=== PATIENT | male | born 1960 | race Caucasian/White ===

== ENCOUNTER → 2018-05-26 13:47 | Outpatient (CLI) | payer OTHER, SELFPAY ==
--- NOTE | 2018-05-26 13:50 | VDLE_ITS ---
Reason For Study: varicose veins, venous insuff., pain and swelling RIGHT LEFT CFV is compressible, spontaneous, phasic, CFV is compressible, spontaneous, phasic, competent and demonstrates normal competent, and demonstrates normal augmentation. augmentation. FV is compressible, spontaneous, phasic, FV is compressible, spontaneous, phasic, competent and demonstrates normal competent and demonstrates normal augmentation. augmentation. POP V is compressible, spontaneous, phasic, POP V is compressible, spontaneous, phasic, competent and demonstrates normal competent and demonstrates normal augmentation. augmentation. T/P Trunk is compressible. T/P Trunk is compressible. PTV is compressible. PTV is compressible. RT PerV is compressible. LT PerV is compressible. S-F Junction is incompetent for greater S-F Junction is competent. than .5 seconds. GSV is incompetent throughout for greater GSV is incompetent throughout for greater than .5 seconds. GSV measures .478 x .487 cm. than .5 seconds. GSV measures .620 x .690 cm. SSV is competent. SSV is incompetent for greater than .5 seconds. SSV measures .371 x .389 cm. Procedure Exam performed in department. Patient was scanned in reverse Trendelenburg position during reflux assessment. The exam was diagnostic. Interpretation Summary 1. bilateral no DVT or SVT. 2. right GSv 6.9mm with severe reflux. 3. Right LSv 3.9mm wiht severe reflux 4. Left GSV 4.9mm with severe reflux. Ordering Physician: Dheeraj Sims Performed By: Te Adam RVT
== END ==
PROVIDERS: Family Provider Family Medicine; PCP Family Medicine; Referring Provider Surgery Vascular Surgery; Visit Provider Surgery Vascular Surgery
DX: I83.891 Varicose veins of right lower extremity with other complications (principal); I87.2 Venous insufficiency (chronic) (peripheral)
CPT/HCPCS: 93970

== ENCOUNTER → 2019-11-19 13:16 | Outpatient (CLI) | payer OTHER, SELFPAY ==
[2019-11-19 12:59] VITALS: BMI 33.7
--- NOTE | 2019-11-19 13:12 | RAD_ITS ---
STUDY: X-RAY - PELVIS AND RIGHT HIP REASON FOR EXAM: Lateral and posterior pain. TECHNIQUE: 2 views of the pelvis and hip. COMPARISON: None. FINDINGS: There are surgical clips in the scrotum. Normal bilateral iliac wings, sacroiliac joints and visualized sacrum. Normal bilateral superior and inferior pubic rami. Normal pubic symphysis. Normal bilateral ischial tuberosities. There is a small right femoral cam lesion. Normal acetabulum. Normal hip joint. RAD/HIP, UNI W/ Pelvis 2-3 Views IMPRESSION: Small right femoral cam lesion. Otherwise, unremarkable x-ray examination of the pelvis and right hip. Electronically Signed: Quinn Landis MD at 15:16 EDT Tel , Service support ,
--- NOTE | 2019-11-19 13:12 | RAD_ITS ---
STUDY: X-RAY - LUMBOSACRAL SPINE REASON FOR EXAM: Male, 59 years old. PAIN RADIATES INTO RIGHT HIP TECHNIQUE: 6 view(s) of the lumbosacral spine were obtained during flexion and extension in the lateral projection. COMPARISON: None FINDINGS: Normal lumbar lordosis. There is no substantial scoliosis. There is normal alignment of the vertebrae. No evidence for acute fracture or subluxation.. There is mild narrowing of the L3-4 and L4-5 disc space heights and mild multilevel endplate spurring. Films obtained in flexion-extension demonstrate no evidence for gross instability. There appears to be spinal stenosis at L4-5 and L5-S1 part due to thickening of the facets and developmental foreshortening of the pedicles which may be further assessed with CT or MRI. Normal bilateral sacral ala, sacroiliac joints, and visualized sacrum. Mild diffuse calcification of the aorta without evidence for aneurysm RAD/L/S Spine Comp/w Bending Views IMPRESSION: Degenerative changes. No evidence for acute fracture or subluxation Probable spinal stenosis in part due to facet arthropathy and shortening of the pedicles. CT or MRI would be useful for further evaluation if indicated Electronically Signed: Gaurav Zhong MD at 20:14 EDT , Service support ,
== END ==
PROVIDERS: PCP Family Medicine; Referring Provider Orthopaedic Surgery; Visit Provider Orthopaedic Surgery
DX: M25.551 Pain in right hip (principal); M54.5 Low back pain
CPT/HCPCS: 72114; 73502

== ENCOUNTER → 2019-12-07 12:33 | Outpatient (CLI) | payer OTHER, SELFPAY ==
[2019-11-19 12:59] VITALS: BMI 33.7
--- NOTE | 2019-12-07 12:35 | MRI_ITS ---
STUDY: MRI RIGHT HIP REASON FOR EXAM: Right hip/right buttock pain, lifting injury. TECHNIQUE: Standardized fat and water weighted pulse sequences were obtained in all 3 orthogonal planes. COMPARISON: Radiographs 11/19/2019. FINDINGS: Normal hip joint without articular joint space narrowing. Normal acetabulum. There is a tear of the right anterosuperior labrum (proton-density sagittal images 16, 17) and a paralabral cyst adjacent to the superior labrum (inversion recovery coronal images 16-18). Normal femoral head. Normal femoral neck and intratrochanteric region. Normal gluteus minimus, medius and iliopsoas tendons and distal insertions. There is no trochanteric, iliopsoas or iliopectineal bursitis. Normal superior and inferior pubic rami. Normal pubic symphysis. Normal ischial tuberosity. Normal origin of the hamstring tendons. Normal visualized iliac wing, sacroiliac joint, and sacral ala. There is edema in the right lower lumbar paraspinous musculature (inversion recovery coronal images 3-5). MRI/Lower Ext Joint Only (Routine) IMPRESSION: Right labral tear and paralabral cyst. Edema in the right lower lumbar paraspinous musculature. Electronically Signed: Quinn Landis MD at 13:57 EDT Tel , Service support ,
== END ==
PROVIDERS: PCP Family Medicine; Referring Provider Orthopaedic Surgery; Visit Provider Orthopaedic Surgery
DX: G57.01 Lesion of sciatic nerve, right lower limb (principal)
CPT/HCPCS: 73721

== ENCOUNTER 2019-12-18 13:00 | Outpatient (RCR) | payer OTHER, SELFPAY ==
[2019-11-19 12:59] VITALS: BMI 33.7
--- NOTE | 2019-12-02 14:38 | HP.PTEVAL ---
Patient's Visit Information UMESH BAUER is a 59 year old M referred to Physical Therapy by Dr. Beatriz Woo DO with a diagnosis of R piriformis syndrome. Date of Evaluation: 11/26/19 Physical Therapist: Kole Cuello DPT - Visit Plan Frequency: 2x /Week Duration: 4 Weeks Plan: Start with DFM, DN, US and stretching to piriformis muscle. Once pain has started to reduce initiate light strengthenign to remodel tissue. Complete inpain free ranges. - Subjective Pt. is here today for his initial evaluation with diagnosis of R piriformis syndrome. Pt. reports he has been dealing with his pain for a few years. Pt. has had SI injections, L5-S1 surgery and previous PT for lumbar spine. Minimla changes with these interventions. Pt. saw his physician who wants to look into piriformis pathology. Pt. reports pain is localized at R glutreal region and posterior thigh. He does have occassional pain that goes down his leg, but not constant. Pt. does report some leg weakness as well. Pt. tends to have no change in symptoms with changes in posture or positions. Pt. is sleeping okay. Pt. is hopeful to reduce symptoms in order to get back to all dauly life activities without limitation. - Pain R gluteal region Pain Intensity (Out of 10): 4 Pain Intensity Range: 2, 8 - Objective POSTURE: Pt. has slight flexed posture in stance. Pt. has increased L lateral wt. shift. Generaled flexed posture and increased anterior pelvic tilt. PALPATION: pt. has increased tenderness at R gluteal region, R piriformis region from sacrum to R greater trochanter. Pt. has mild tenderness along B lumbar paraspinals and R side of multifidus. NEURO: Pt. has normal sensation of BLEs. Pt. has normal DTR of BLEs. ROM: LUMBAR SPINE: flexion- min loss NE, extension mod loss increase nW, SB min loss NE, rotation min loss NE. L hip- flexon, extension, abd full NE, ER/IR normal no pain. R hip- flexion- full no pain, extnsion min loss NE, IR 20deg increase nW ( post leg pain, no groin pain). MMT: LLE- 5/5 throughout; RLE- ankle/knee 5/5 throughout, hip- flexion 4+/5, abd 4/5, ext 4+/5, IR 4/5, ER 4/5. Core strngth- poor. GAIT: Pt. is able to ambulate well without antalgic pattern, but does have flexed posture. - Special Tests L/S Slump test left side: Negative L/S Slump test right side: Negative L/S Left Straight Leg Raise: Negative L/S Right Straight Leg Raise: Negative R Hip Scour: Negative R Hip JENNIFER - Intraarticular Pathology: Negative R Hip FADDIR - Labrum: Negative - Goals Goal 1:: LTG: Pt. to be I with HEP. Goal Time Frame: 4-6 Weeks Goal 2:: STG: Pt. to walk household distances without increase in symptoms. Goal Time Frame: 2-4 Weeks Goal 3:: LTG: Pt. to ambulate unlimited distances without increase in symptoms. Goal Time Frame: 4-6 Weeks Goal 4:: STG: Pt. to stand for greater than 10 minutes without increase in symptoms. Goal Time Frame: 2-4 Weeks Goal 5:: LTG: PT. to have greater than 30deg of hip IR without increase in symptoms. Goal Time Frame: 4-6 Weeks Goal 6:: LTG: Pt. to complete all work and recreational activities wtihout incerase in symptoms. Goal Time Frame: 4-6 Weeks - Rehabilitation Potential Physical Therapy Diagnosis: Pt. has signs and symptoms consistent with R piriformis syndrome. Pt. has had a previous back surgery, injections and SI injections. Pt. has marked pain at piriformis region. He does have some lumbar spine soreness and some pain that radiates down his RLE. Pt. would benefit from PT to work on reducing piriformis tension on his sciatic nerve and increasing tissue length. Rehabilitation Potential: Good - Anticipated Interventions Patient/Client Instruction: Educate patient on: Condition, Plan of Care, Risk Factors, Benefits of Fitness Program For the Purpose of:: To improve decision making, To facilitate caregiver knowledge, To improve self management, To prevent re-injury, To improve ability to perform tasks related to life management, To improve tolerance to ADL's Therapeutic Exercise to Include: Strength training, Power training, Endurance training, Postural training, Flexibilty training, Gait and locomotor training, Passive ROM, Active ROM, Dynamic Lumbar Stabilization For the Purpose of:: To decrease pain, To decrease swelling/inflammation, To increase ROM, To improve nutrient delivery to tissue, To increase oxygenation perfusion, To improve health of tissue, To decrease soft tissue restriction, To increase flexibility/ROM, To improve balance Manual Therapy Techniques to Include: Mobilization, Functional dry needling, Soft tissue mobilization For the Purpose of:: To decrease pain, To decrease swelling/inflammation, To increase ROM, To improve nutrient delivery to tissue, To increase oxygenation perfusion, To improve muscle performance and motor function Ultrasound (thermal/non thermal): Yes For the Purpose of:: To decrease pain, To decrease swelling/inflammation, To increase ROM, To improve nutrient delivery to tissue, To increase oxygenation perfusion, To improve muscle performance and motor function Thank you for the opportunity to evaluate your patient. For Medicare and Medicare HMO plans, please review the plan of care and approve it. It will need to be FAXED BACK to us at [phone] for Medicare purposes. For Medicare only, by signing this I certify the plan of care. Please let me know if there are questions or concerns regarding this plan of care. Physician Signature: Date:
== END 2019-12-18 19:00 | disposition home or self-care (01) ==
LOC: PT 13:00
PROVIDERS: PCP Family Medicine; Referring Provider Orthopaedic Surgery; Visit Provider Orthopaedic Surgery
DX: G57.01 Lesion of sciatic nerve, right lower limb (principal)
CPT/HCPCS: 97035; 97110; 97161

== ENCOUNTER → 2020-03-17 13:36 | Outpatient (CLI) | payer OTHER, SELFPAY ==
[2019-12-10 13:02] VITALS: BMI 33.7
--- NOTE | 2020-03-17 13:38 | MRI_ITS ---
STUDY: MRI LUMBAR SPINE WITHOUT CONTRAST REASON FOR EXAM: Male, 59 years old. radiculopathy, lbp, rt hip pain, hx prior surgery 09/2019 TECHNIQUE: Standardized fat and water weighted pulse sequences were obtained in the sagittal and axial planes. COMPARISON: None FINDINGS: T12-L1: Normal endplates. Normal disc height, hydration and morphology. Normal bilateral facet joints. Normal central canal and bilateral lateral recesses. Normal bilateral intervertebral neural foramina. Normal lumbar lordosis. There is no substantial scoliosis. Normal conus medullaris that terminates at T12-L1 L1-2: Normal endplates. Normal disc height, hydration and morphology. Normal bilateral facet joints. Normal central canal and bilateral lateral recesses. Normal bilateral intervertebral neural foramina. L2-3: Normal endplates. Normal disc height, hydration and morphology. Normal bilateral facet joints. Normal central canal and bilateral lateral recesses. Normal bilateral intervertebral neural foramina. L3-4: Normal endplates. Normal disc height, desiccation and normal morphology. Bilateral facet arthropathy.. Normal central canal and bilateral lateral recesses. Mild bilateral neuroforaminal encroachment.. L4-5: Postop change status post right laminectomy Normal endplates. Normal disc height, desiccation and normal morphology. Bilateral facet arthropathy and thickening of the flava greater on the left. Normal central canal. Mild right lateral recess and neuroforaminal encroachment with moderate narrowing on the left. L5-S1: Status post right laminectomy Normal endplates. Normal disc height, desiccation and small right posterolateral/foraminal disc protrusion. Bilateral facet arthropathy. Normal central canal and bilateral lateral recesses. Mild left neuroforaminal stenosis and moderate to severe narrowing on the right Normal visualized sacral ala. Normal visualized paraspinous soft tissue structures. MRI/Spine Lumbar (Routine) IMPRESSION: No evidence for acute fracture or other significant bony pathology. Postop change status post right laminectomy at L4-5 and L5-S1. Paraspinal stenosis at L4-5 greater on the left primarily secondary to facet arthropathy and thickening of ligamenta flava. There is also spinal stenosis at L5-S1 more severe in the right which appears to be due to small right posterolateral/foraminal disc protrusion and facet arthropathy. Limited repeat study with contrast would be helpful to help differentiate recurrent disc disease from epidural fibrosis. Electronically Signed: Gaurav Zhong MD at 22:21 EST , Service support ,
== END ==
PROVIDERS: Referring Provider Orthopaedic Surgery; Visit Provider Orthopaedic Surgery
DX: M54.16 Radiculopathy, lumbar region (principal); M48.07 Spinal stenosis, lumbosacral region; Z98.1 Arthrodesis status
CPT/HCPCS: 72148

== ENCOUNTER 2020-03-25 08:29 | Day surgery (SDC) | payer OTHER, SELFPAY ==
[2019-12-10 13:02] VITALS: BMI 33.7
[2020-03-25 08:58] VITALS: BP 177/84; PULSE 66; RESP 16; TEMP 36.3; O2SAT 96; BMI 35.6
--- NOTE | 2020-03-25 09:00 | HP_ITS ---
I have re-examined the patient. There are no clinical changes since date of exam. Intake Intake Visit Reasons: right finger Accompanied by: Self Is patient in pain?: Yes Pain scale (1-10): 6 Allergies shellfish derived Allergy (Verified 03/01/20 13:11) unknown surgical tape Allergy (Uncoded 03/01/20 13:11) unknown Medications oxaprozin 600 mg tablet 600 mg PO DAILY 11/19/19 [History Confirmed 03/01/20] pantoprazole 20 mg tablet,delayed release 20 mg PO DAILY 11/19/19 [History Confirmed 03/01/20] pregabalin 75 mg capsule 75 mg PO DAILY 11/19/19 [History Confirmed 03/01/20] tramadol 50 mg tablet 50 mg PO DAILY 11/19/19 [History Confirmed 03/01/20] [facility] Surgical History (Updated 11/19/19 @ 13:35 by Haylee Guallpa) H/O left knee surgery (Acute) h/o lumbar spine surgery (Acute) Social History (Updated 03/01/20 @ 15:[address] Beatriz Woo DO) Smoking Status: Former smoker alcohol intake: current alcohol intake frequency: holidays/special occasions only what type of physical activity do you participate in: weight training HPI right finger: Surgical H&P: Yes Details: Parts of this documentation were recorded by a scribe, this documentation accurately reflects the service provided and the decisions made by me, Dr. Beatriz Woo DO 03/01/20 1303. UMESH BAUER is a 59 year old M here today for sign consent for right middle finger trigger release, DOS: 03/25/20. Patient recently had injections by Dr. Whyte, which were not effective. Pain today is rated: 6/10 from the pain scale. Patient has tried physical therapy in the past which he expressed worsened his pain. Ortho Exam Right Wrist/Hand A1 óscar trigger: Yes Motor: EPL: 5, FDP-2: 5, 1st Dorsal Interosseous: 5, APB: 5 Sensation: Radial: I, Ulnar: I, Median: I Assessment & Plan Problems 1. Trigger middle finger of right hand M65.331 Plan Reviewed the pre-operative plans with the patient. Risks and benefits of the procedure were fully explained, including but not limited to infection, neurovascular injury, continued pain, arthritis, stiffness, need for further surgery, re-injury, DVT, PE, general risks of anesthesia, and loss of limb or life. The patient understands all the risks and does wish to proceed with written consent. Surgery is scheduled for 03/25/2020. We discussed the current risk associated COVID-19. While it is understood that there is a community spread of COVID 19 the risk of shahzad COVID-19 while at [facility] is very low, however, the risk cannot be completely mitigated because of the community spread of the disease. We discussed in detail the risk of exposure to and or potential harm posed by the COVID-19 virus with having a surgery/procedure at this time versus the risk of delaying the surgery/procedure. Is not possible to know either the risk of delaying the surgery procedure or chance of getting an infection with perfect accuracy, but a joint decision was made to proceed at this time with a schedule surgery/procedure as indicated on the consent form. Patient was notified that we will need to comply with any screening or testing [facility] wishes to perform or that surgery may be delayed for any positive results. Explained to patient his MRI is in [id number]. All questions answered. Patient in agreement of plan. Coding Level of Care Code Off vis,est,level 4 Diagnoses Trigger middle finger of right hand M65.331
[2020-03-25] MEDS: Lactated Ringers 1,000 ML 100 ML IV (09:16)
[2020-03-25] MEDS: Cefazolin 2 GM in 0.9% Normal Saline 100 ML IV (09:41)
--- NOTE | 2020-03-25 09:48 | DCINST_ITS ---
Discharge Diet: No Restrictions - keep dressing clean and dry, if dressing gets soiled, please change; call with concerns, follow up in 10-14 days or sooner if issues arise Discharge Activity: May Not Drive May shower in (days): 1 Ice area for (Minutes): 20 - Every hour while awake. Weight Bearing Status: Weight bearing as tolerated Keep extremity elevated above heart level: Operative Extremity Call your doctor if your incision/area has: Continuous Slow Oozing, Sudden Increased Bleeding, Increased Pain/ Swelling, Increased Redness, Foul Smelling Discharge Call your doctor if you observe: Fever of 101 or Higher, Coldness, Increased Pain, Numbness or Tingling, Change in Color, Calf discomfort Allergies/Adverse Reactions: Allergies shellfish derived Allergy (Verified 03/25/20 09:05) Swelling surgical tape Allergy (Uncoded 03/25/20 09:05) Rash Medications to take at Discharge oxaprozin 600 mg tablet 600 mg PO QHS 11/19/19 pantoprazole 20 mg tablet,delayed release 20 mg PO QHS 11/19/19 pregabalin 75 mg capsule 75 mg PO DAILY 11/19/19 tramadol 50 mg tablet 50 mg PO QHS 11/19/19 Primary Care Physician: Saul Lagos DO [Primary Care Provider] - Test Results: Test results from this visit will be discussed in further detail at your follow- up appointment, if applicable. Please Follow Up With: Beatriz Woo DO - [phone]
--- NOTE | 2020-03-25 09:49 | PCM.OPRPT ---
Report of Operation Date of Procedure: 03/25/20 Pre-Operative Diagnosis: right middle finger trigger finger Post-Operative Diagnosis: same Surgery/Procedure Performed:: right a1 óscar release middle finger Type of Anesthesia:: Lalitha Pryor Anesthesiologist: Dipak Maher Estimated Blood Loss (mL): min Fluids Replaced: 600cc Description of Procedure: Preoperative note Patient is a 59 year-old female who came into my office with a locking and quite painful right third middle finger. Due to the fact that it was locking quite painful failed conservative treatment, patient decided to operate so he can regain function and decrease pain and locking. Risks benefits and alternatives surgery discussed with patient and mom. Risks including but not limited to blood loss, blood clot, infection, neurovascular injury, failure procedure, loss of life and loss of limb. Patient is aware would like proceed with right trigger finger middle release A1 óscar release. Operative note Patient seen and examined preoperative holding area. Right middle finger was marked. Patient is brought to the operating room and placed supine on the operating table. Sign, anesthesia, antibiotics were administered. The right arm was prepped and draped in usual sterile fashion after [place] block was initiated. We did test the [place] block it was working. Timeout was performed. We marked out our incision at the A1 óscar of the right middle finger. We was about a centimeter and a half for length. We used a 15 blade to cut the skin tenotomies to dissect down to the level of the A1 óscar. We then released the A1 óscar both proximally and distally we then brought the tendons out of the incision and flex and extend at the PIP and DIP of the right middle finger to ensure that we had no further locking which we did not have. We then irrigated the incision with copious amounts of sterile saline. Incision was closed with interrupted 4-0 nylon stitches. Tourniquet was deflated for total working time of 8 minutes. Patient tolerated procedure well there are no complications, patient transferred to recovery room in stable condition. Postoperative note Use hand as tolerated but keep incision clean and dry Discussed with family Follow-up in 2 weeks for dressing change and suture removal OTC family This note was generated with Intraxioation software. It may contain incorrect words, spelling, and punctuation that were not noted in checking the note before signing.
[2020-03-25] MEDS: Mupirocin Ointment 22gm Tube 1 APPLIC (10:02)
[2020-03-25 10:15] VITALS: BP 144/10; BP 177/84; PULSE 58; RESP 18; TEMP 35.8; O2SAT 98
[2020-03-25 10:20] VITALS: BP 160/97; BP 177/84; PULSE 61; RESP 18; O2SAT 99
[2020-03-25 10:25] VITALS: BP 148/89; BP 177/84; PULSE 60; RESP 18; O2SAT 97
[2020-03-25 10:31] VITALS: BP 160/97; BP 177/84; PULSE 62; RESP 18; TEMP 36.1; O2SAT 98
[2020-03-25 10:52] VITALS: BP 177/84
== END 2020-03-25 11:15 | disposition home or self-care (01) ==
LOC: SDC 08:30 → AC 08:30
PROVIDERS: PCP Preventive Medicine Occupational Medicine; Referring Provider Orthopaedic Surgery; Visit Provider Orthopaedic Surgery
PROC: (CPT 26055; principal; 2020-03-25 09:45)
DX: M65.331 Trigger finger, right middle finger (principal); Z20.828 Contact with and (suspected) exposure to other viral communicable diseases; Z87.891 Personal history of nicotine dependence
CPT/HCPCS: 01810; 26055; 87426; C9803; J7120; A4216

== ENCOUNTER 2020-05-17 12:55 | Outpatient (RCR) | payer OTHER, SELFPAY | END 2020-05-17 23:59 | disposition home or self-care (01) | LOC: NS 12:55 | PROVIDERS: PCP Preventive Medicine Occupational Medicine; Visit Provider Anesthesiology Pain Medicine | DX: Z71.3 Dietary counseling and surveillance (principal); E66.9 Obesity, unspecified; Z68.31 Body mass index [BMI] 31.0-31.9, adult | CPT/HCPCS: 97802 ==

== ENCOUNTER → 2020-05-31 12:34 | Outpatient (CLI) | payer OTHER, SELFPAY ==
--- NOTE | 2020-05-31 12:35 | MRI_ITS ---
STUDY: MRI LUMBAR SPINE WITH AND WITHOUT CONTRAST REASON FOR EXAM: Male, 59 years old. back pain h/o prior lumbar sx, f/u to prior lumbar mri TECHNIQUE: Standardized fat and water weighted pulse sequences were obtained in the sagittal and axial planes. iv dotarem 20cc was administered for the contrast portion of the examination. COMPARISON: 03/17/2020 FINDINGS: T12-L1: Normal endplates. Normal disc height, hydration and morphology. Normal bilateral facet joints. Normal central canal and bilateral lateral recesses. Normal bilateral intervertebral neural foramina. Normal lumbar lordosis. There is no substantial scoliosis. Normal conus medullaris that terminates at the L1. L1-2: Normal endplates. Normal disc height, hydration and morphology. Normal bilateral facet joints. Normal central canal and bilateral lateral recesses. Normal bilateral intervertebral neural foramina. L2-3: Normal endplates. Normal disc height, hydration and morphology. Normal bilateral facet joints. Normal central canal and bilateral lateral recesses. Normal bilateral intervertebral neural foramina. L3-4: Mild bilateral facet hypertrophy and ligament flavum hypertrophy. Mild broad disc protrusion produces mild spinal stenosis and mild bilateral neural foraminal stenosis. L4-5: Status post right laminectomy. Moderate bilateral facet hypertrophy and ligament flavum hypertrophy. Enhancing scar tissue along the right lateral and left lateral aspect of the thecal sac but no nerve root encasement. L5-S1: Status post right laminectomy. 2 mm retrolisthesis of L5 on S1 with a mild broad disc protrusion produces mild spinal stenosis, mild bilateral lateral recess stenosis, mild left neural foraminal stenosis. A large right foraminal protrusion produces severe right neural foraminal stenosis with effacement the right L5 nerve root laterally. Some enhancing scar tissue seen along the right side of the thecal sac but without mass effect or nerve root encasement. Normal visualized sacral ala. Normal visualized paraspinous soft tissue structures. MRI/Spine Lumbar WITH Contrast IMPRESSION: Some enhancing scar tissue at L4/L5 and L5/S1 but no mass effect or nerve root encasement. Severe right neural foraminal stenosis at L5/S1 with effacement the right L5 nerve root due to a large right foraminal disc protrusion. Electronically Signed: Angus Ovalle MD at 9:03 EST Tel , Service support ,
== END ==
PROVIDERS: PCP Preventive Medicine Occupational Medicine; Referring Provider Orthopaedic Surgery; Visit Provider Orthopaedic Surgery
DX: M51.16 Intervertebral disc disorders with radiculopathy, lumbar region (principal); M48.061 Spinal stenosis, lumbar region without neurogenic claudication
CPT/HCPCS: 72149; A9575

== ENCOUNTER 2021-02-14 05:40 | Inpatient (IN) | payer OTHER, SELFPAY ==
--- NOTE | 2021-02-02 12:56 | EKG12_ITS ---
Test Reason : PRE OP Blood Pressure : / mmHG Vent. Rate : 070 BPM Atrial Rate : 070 BPM P-R Int : 162 ms QRS Dur : 088 ms QT Int : 372 ms P-R-T Axes : 037 025 051 degrees QTc Int : 401 ms Normal sinus rhythm Normal ECG Confirmed by LINDA RINCON, GENOVEVA ([id number]), editor producer LANDON KERR ([id number]) on 02/07/2021 11:28:19 AM Referred By: FLO Confirmed By:ANITHA MCKEON MD
[2021-02-02 13:46] LABS: Absolute Lymphocyte Count 2.27 X10^3/uL (0.83-4.51); Absolute Neutrophil Count 3.2 X10^3/uL (2.0-7.7); Basophil# 0.04 X10^3/uL; Basophil% 0.7 % (0-1); Eosinophil# 0.06 X10^3/uL; Hematocrit 41.2 % (40-54); Hemoglobin 14.5 g/dL (13.0-16.5); Lymphocyte # 2.27 X10^3/ul (0.83-4.51); Lymphocyte % 38.2 % (19-41); Mean Corp Hgb Conc 35.2 g/dL (32-36); Mean Corpuscular Hgb 31.7 pg (27.0-32.0); Mean Corpuscular Volume 90.2 fL (80-94); Mean Platelet Vol. 8.3 fl (6.2-12.0); Monocyte# 0.41 X10^3/uL; Monocyte% 6.9 % (0-10); NRBC Flagged by Analyzer 0 % (0-5); Neutrophil # 3.15 X10^3/uL (2.7-7.7); Neutrophil % 52.9 % (47-70); Platelet Count 376 K/mm3 (150-450); RBC Distribution Width CV 12.5 % (11.6-14.6); RBC Distribution Width SD 41.1 fl (35.1-43.9); Red Blood Count 4.57 M/mm3 (4.6-6.2)
[2021-02-02 13:58] LABS: Prothrombin Time (Protime)PT. 12.5 SECONDS (11.7-14.9)
[2021-02-02 13:59] LABS: Magnesium 1.9 mg/dL (1.6-2.6); Partial Thromboplast Time 28.8 Seconds (24.1-36.2)
[2021-02-02 14:34] LABS: Anion Gap 8 (5-15); BUN 16 mg/dL (7-18); BUN/Creat Ratio 11.9 RATIO (10-20); Calcium,Total 8.7 mg/dL (8.5-10.1); Chloride 105 mmol/L (98-107); Creatinine, Serum 1.35 mg/dL (0.70-1.30); EST Glomerular Filtration Rate 57 mL/min (>60); Est Glom Filt Rate - Afr Amer 70 mL/min (>60); Glucose 84 mg/dL (74-106); Potassium 3.9 mmol/L (3.5-5.1); Sodium Level 138 mmol/L (136-145)
[2021-02-02 15:08] LABS: HIV - WCH Non-Reactive (Nonreactive); Hepatitis B Surface Antibody Reactive; Hepatitis C Antibody Non-Reactive (Nonreactive)
[2021-02-04 13:50] LABS: Hepatitis A AB, Total Negative (Negative)
--- NOTE | 2021-02-13 13:29 | HP.PCM_ITS ---
History and Physical Date of Admission: 02/14/21 Created in prior version - Sign/Cancel Only. [facility] [id number] [id number] OFFICE VISITDate of Service: 07/27/20 MR#:[id number]: YOSEPH BAUERRep #:[id number] :1960 Provider:Dr. Robby Joreg DOAge/Sex: 59/M Location:BMS.SHADIStatus:Signed Intake Intake Visit Reasons: Lumbar spine Accompanied by: Spouse Is patient in pain?: Yes Allergies shellfish derived Allergy (Verified 06/21/20 12:53) Swelling surgical tape Allergy (Uncoded 04/12/20 12:50) Rash PFSH Surgical History (Updated 03/25/20 @ 09:[address] Beatriz Woo DO) H/O left knee surgery (Acute) h/o lumbar spine surgery (Acute) Family History (Updated 04/04/20 @ 08:36 by Jessica Townsend) Mother Lung cancer Father Dementia Social History (Updated 07/27/20 @ 12:[address] Robby Jorge DO) Smoking Status: Former smoker alcohol intake: current alcohol intake frequency: holidays/special occasions only what type of physical activity do you participate in: weight training HPI Lumbar spine: Details: Parts of this documentation were recorded by a scribe, this documentation accurately reflects the service provided and the decisions made by me, Dr. Robby Jorge DO 07/27/20 1102. YOSEPH BAUER is a 59 year old M here today for to discuss the next step to move forward to having his spine surgery. Patient denies any medical changes at this time. Patient has an injection by pain management which lasted one month for his first injection. Second injection did not provide any relief. Yoseph returns in the company of his Gato. She is an RN and is training to become a nurse practitioner. We discussed his problem of the fact that the right leg pain continues. By history given to me by the patient it is an L5 distribution. He has no S1 symptomatology. He has tension signs of positive straight leg raising on the right side. As mentioned above he had an injection probably an epidural that lasted a whole month. If he could stay that way he would have been happy. I reviewed his MRI scan again that demonstrates that he has very significant scar formation on the right side at 4 5 and 5 1. He also has a foraminal extrusion of the L5-S1 disc into the foramen. This is probably the second point of pressure on the L5 nerve root on the right side. We discussed the surgery at length what to expect what not to expect etc. I answered all their questions. The surgery will be a 360 degree fusion with decompression of the right L5 nerve. He wishes to have it done in the fall. I told him to please give me a 6-week lead time prior to the surgery. I also told him that I would like to see him 1 week before his surgery as scheduled. Assessment & Plan Problems 1. Radiculopathy, lumbar region M54.16 2. Lumbar back pain M54.5
[2021-02-14] VITALS (16 sets, daily range): BP systolic 93–171; BP diastolic 43–104; PULSE 68–90; RESP 14–22; TEMP 36.1–36.8; O2SAT 6–100; BMI 35.6
--- NOTE | 2021-02-14 | DISC_PTH ---
PATIENT: UMESH BAUER LOC: MS2 U#:[id number] AGE/SX: 60/M ROOM: [facility] [id number] RE02/14/[address]: Dr. Robby Jorge DO : 1960 BED: 1 DIS: 02/18/2021 SPEC #: [id number] RECD: 02/14/21 15:00 STATUS: DAMARIS REKayleigh #: [id number] REJI: 02/14/21 00:[address]: Robby Jorge DEPT: SURGICAL PATHOLOGY RECD BY: Pepe Moore ENTERED: 02/15/21 09:12 SP TYPE: DISC OTHR DR: DO Dr. Saul Ferrell DO Tissues: Intervertebral disc, NOS Procedures: Surgery Specimen Level III HEADER OPERATION: ERAS, 2 level 360 fusion with repeat laminectomy L4-5 PRE-OP DIAGNOSIS: Radiculopathy lumbar region, lumbar back pain TISSUE SUBMITTED: Lumbar disc MICROSCOPIC DIAGNOSIS Lumbar disc, L4-5, discectomy: Disc with degenerative change and focal crystallization. Rare fragments of hyaline cartilage and bone with reparative and reactive change. AM:andrey 02/16/2021 MICROSCOPIC DESCRIPTION Slides are reviewed. GROSS DESCRIPTION Received in fixative is one container labeled with the patient's name and designated disc lumbar. The specimen consists of multiple pieces of smith, indurated tissue that in aggregate measure 9 x 8 x 3 cm. The largest piece measures 3 cm in greatest dimension. [employer] Administrator sections are submitted in three cassettes. / CONRAD:andrey 02/15/21 TC:5 CPT: 79656
[2021-02-14] MEDS: Acetaminophen 500 MG Tablet 1000 MG PO (06:53)
[2021-02-14] MEDS: Lactated Ringers 1,000 ML 100 ML IV ×8 (06:55→21:01)
--- NOTE | 2021-02-14 07:30 | RAD_ITS ---
STUDY: X-RAY - LUMBAR SPINE REASON FOR EXAM: Male, 60 years old. 360 FUSION WITH REPEAT LAMINECTOMY L4-5, L5-S1 TECHNIQUE: 1 view(s) of the lumbar spine were obtained. COMPARISON: None FINDINGS: The localization instrument is seen along the anterior aspect of the L5-S1 disc space level. RAD/Lumbar Spine 2 or 3 Views IMPRESSION: The localization instrument is seen along the anterior aspect of the L5-S1 disc space level. Electronically Signed: Lonny Olivier MD at 14:42 EDT , Service support ,
[2021-02-14] MEDS: Cefazolin 2 GM in 0.9% Normal Saline 100 ML IV (07:53)
[2021-02-14] MEDS: Heparin 10,000 UNITS/10 ML Vial 10000 UNITS (08:00)
[2021-02-14] MEDS: THROMBIN (RECOMBINANT) 20,000 UNIT VIAL 20000 UNIT TOPICAL ×2 (08:00→14:15)
[2021-02-14 08:05] LABS: Bedside Glucose 101 mg/dL (70-110)
--- NOTE | 2021-02-14 09:20 | RAD_ITS ---
STUDY: X-RAY - LUMBAR SPINE REASON FOR EXAM: Male, 60 years old. 360 FUSIONL4-5. TECHNIQUE: A single crosstable lateral intraoperative view(s) of the lumbar spine were obtained. COMPARISON: Lumbar spine, 02/14/2021 ([id number]). FINDINGS: Normal lumbar lordosis. There is evidence of anterior fusion of L5-S1. The plate and screws and disc space are in satisfactory position. There is no maintenance of normal alignment. Please refer to the operative report for further details. RAD/Spine 1 View Any Level IMPRESSION: Evidence of anterior fusion at L5-S1. Electronically Signed: Tripp Lopez DO at 22:38 EDT Tel [phone], Service support ,
--- NOTE | 2021-02-14 10:45 | RAD_ITS ---
STUDY: X-RAY - LUMBAR SPINE REASON FOR EXAM: Male, 60 years old. FUSION L4-5,L5-S1 TECHNIQUE: 1 view(s) of the lumbar spine were obtained. COMPARISON: None FINDINGS: The metallic localization instrument is seen along the anterior aspect of the L4-L5 disc space level. RAD/Spine 1 View Any Level IMPRESSION: Localization instrument is seen on the anterior aspect of the L4-L5 disc space level. Electronically Signed: Lonny Olivier MD at 13:04 EDT , Service support ,
--- NOTE | 2021-02-14 11:35 | RAD_ITS ---
STUDY: X-RAY - LUMBAR SPINE REASON FOR EXAM: Male, 60 years old. FUSION -- IMAGE 4 TECHNIQUE: 1 view(s) of the lumbar spine were obtained. COMPARISON: None FINDINGS: The patient is status post anterior fusion and prosthetic disc placement at the L4-L5 and L5-S1 levels. RAD/Spine 1 View Any Level IMPRESSION: Status post anterior fusion with prosthetic disc placement at the L4-L5 and L5-S1 levels. Electronically Signed: Lonny Olivier MD at 13:07 EDT , Service support ,
--- NOTE | 2021-02-14 11:44 | RAD_ITS ---
STUDY: X-RAY - LUMBAR SPINE REASON FOR EXAM: Male, 60 years old. Fusion. Image 5. TECHNIQUE: A single crosstable lateral intraoperative image. view(s) of the lumbar spine were obtained. COMPARISON: 02/14/2021 (1127). FINDINGS: Normal lumbar lordosis. There is no substantial scoliosis. There is a normal alignment of the vertebrae. Again seen is anterior fusion of L4-5 and L5-S1 unchanged from prior study. Bowel surgical probe overlying the transverse process of L5. No other interval change. RAD/Spine 1 View Any Level IMPRESSION: Intraoperative image as above. Electronically Signed: Tripp Lopez DO at 23:46 EDT Tel [phone], Service support ,
--- NOTE | 2021-02-14 11:59 | PCM.OPRPT ---
Problems Associated Problem List Diagnoses (1) Lumbar back pain: (2) Radiculopathy, lumbar region: (3) DDD (degenerative disc disease), lumbar: Report of Operation Date of Procedure: 02/14/21 Pre-Operative Diagnosis: Degenerative disc disease Post-Operative Diagnosis: The same Surgery/Procedure Performed:: 1. L4-L5 anterior lumbar interbody fusion with cage placed with BMA and anterior plate with 2 screws into L4 and 2 screws in L5. 2. L5-S1 anterior lumbar interbody fusion with cage placed with BMA and anterior plate with 2 screws into L5 and 2 screws in S1. Description of Procedure: Surgeon: Dr. Jorge co-surgeon: Dr. Dheeraj Sims Procedure: Patient brought to the operating room. And with appropriate timeout consent. And underwent appropriate monitoring lines were placed. Underwent general anesthesia. Prep antibiotics given. Was prepped and draped in a sterile fashion. We did a left lower quadrant incision. We then dissected down to the anterior fascia. We incised this and then freed up the fascia superior and inferior. And then medial just to the midline and then lateral into the obliques. We then got lateral to the rectus into the retroperitoneal plane onto the iliopsoas. We then put in an Omni retractor. Using blunt dissection we got medial to the vessels and dissected onto the L5-S1 disc space. All the middle sacral vessels and couple extra venous branches were ligated between clips. We then confirmed with x-ray we are in the L5-S1 disc space. Underwent a discectomy then. Freed up nicely. We then put in dilators and then ended up with a 14 mm small cage. This was filled also with BMA. We put a 27 mm plate on top with 2 screws into L5 and then 2 screws into S1. We then reconfirmed on x-ray good position of this. We then with retractor superior and dissected down onto the L4-L5 disc space. Once this was freed up in several iliolumbar venous branches and some lumbar arterial and venous branches were clipped and divided. This then retracted medial. We had good position exposure of the disc space. We confirmed again on x-ray that we are in proper position. Then underwent discectomy through here as well. Dilated up. Used the broach through this is well. Then put in a 14 mm cage also filled with BMA. 27 mm plate placed on top with 230 mm screws into L4 and 230 mm screws in S1. We put film over both cages. Released retractors with good hemostasis. Completion x-ray showed good position of all this. We closed the fascia with running strata fix. 2-0 Vicryl and then 3-0 Vicryl in layers. 4 Monocryl Dermabond for the skin. He was then can be flipped over and all of the posterior be dictated separately. I was present for the entire anterior component.
--- NOTE | 2021-02-14 12:26 | OP.PCM_ITS ---
Report of Operation Date of Procedure: 02/14/21
--- NOTE | 2021-02-14 12:26 | PCM.OPRPT ---
Report of Operation Date of Procedure: 02/14/21
--- NOTE | 2021-02-14 12:29 | PCM.OPRPT ---
Report of Operation Date of Procedure: 02/14/21 Description of Surgical Findings:: Preoperative diagnosis: Right L5 radiculopathy and right S1 radiculopathy Postoperative diagnosis: The same Procedures: #1 anterior lumbar interbody fusion L5-S1 CPT code 76018 #2 application of spine plate L5-S1 CPT code 07056/59 #3 application of spine plate L4-5 CPT code 81476/5 9 #4 anterior lumbar interbody fusion L4-5 CPT code 34241/5 1 #5 insertion of titanium cage L5-S1 CPT code 37461 #6 insertion of titanium cage L4-5 CPT code 27744/[address] Jorge and Dr[address] Sims physical therapy assistant instructor Vonda AVILEZ Anesthesia: General endotracheal anesthesia administered by [facility] EBL: 100 cc Drains: None Complications: None Procedure: Patient was taken to the OR he was placed in the supine position on the operating table he was then placed under general endotracheal anesthesia. Neuro monitoring placed the leads and the patient. A Deleon catheter was inserted. The abdomen was then prepped and draped in standard fashion. The surgical approach is described in Dr. Sims's operative summary. Once L5-S1 was exposed and documented with a plain x-ray intraoperatively I then remove the anterior annulus with a 10 blade and pituitary rongeurs. I removed more disc from within the the disc base with pituitary rongeurs both ring curettes and bowl curettes. This was taken all the way back to near the posterior longitudinal ligament. A large the back of the space just a bit using a jonah bur. I then removed all the remaining cartilage of endplates using the curettes. I then took our measurement for a cage. We decided to use a 25 x 35 mm cage 8 degrees and 14 mm high the space was then broached with a 12 and a 14 mm broach. Once this was done I then took the care filled both sides of the cage with spongy DBM and soaked in the patient's stem cells. Note that earlier in the case we obtained a bone marrow aspirate from the left iliac crest and it was spun down and concentrated by the critical care technician in the room thus we had concentrated stem cells from the patient. Once the cage was soaked in patient's stem cells were then tamped into place and countersunk it a couple of millimeters. A 27 mm plate was then used anteriorly. We used an L5-S1 plate which is a little more curved I held it in place Dr. Sims a punch each of the appropriate holes with an awl. We placed 2 screws into L5 and 2 into S1. These were self-tapping screws at S1 we used 25 mm screws and at L5 we used 30 mm screws. Then placed an amnionic membrane directly over the plate to prevent adhesions. Dr. Sims then I did more exposure at L4-5 this took a while as the patient had quite a few local vessels. We did identify the L4-5 space and confirmed it with x-ray. Once this was done I cut the anterior annulus at L4-5 with a 10 blade I remove this with pituitary rongeurs and continue to remove a disc from within the disc space with pituitary rongeurs. I then used bowl curettes and ring curettes to remove the cartilage off both endplates all the way back to the posterior portion of the annulus. Again the bur was used to bur the back a bit to make room for the cage. Measurements were again taken and we used a 14 mm trial which appeared to be the appropriate size. We then used a 14 mm broach to broach the space. Cage was then filled again with spongy beat DBM on both halves and soaked in the patient's concentrated stem cells. I then tamped it into place and countersunk it 2 to 3 mm. Other 27 mm plate was used but was the standard plate that we used at the other levels other than L5-S1. Once centered in place Dr. Sims punched each individual hole with an awl while I held the plate. After each punch he entered with a 30 mm screw at all 4 points. We then activated the locking mechanism in place and put amniotic membrane over the plate to prevent adhesions to the local vessels. The closure is then described in Dr. Sims's operative summary. [facility] This is [facility] Jorge dictating.
--- NOTE | 2021-02-14 16:05 | RAD_ITS ---
STUDY: X-RAY - LUMBAR SPINE REASON FOR EXAM: Male, 60 years old. Fusion L4-5 and L5-S1. TECHNIQUE: A single lateral intraoperative view(s) of the lumbar spine were obtained. COMPARISON: Lumbar spine, 02/14/2021 (1331. FINDINGS: Normal lumbar lordosis. There is no substantial scoliosis. There is a normal alignment of the vertebrae. Again seen is anterior fusion of L4-5 and L5-S1 the plates and screws and disc spacers are unchanged from the earlier image. There is now a fusion images device between the spinous processes of L4 and S1 not previously noted. Please refer to the operative report for further details. The soft tissue structures are unremarkable. RAD/Spine 1 View Any Level IMPRESSION: Fusion of the L4-5 and L5-S1 disc spaces. Electronically Signed: Tripp Lopez DO at 17:09 EDT Tel [phone], Service support ,
--- NOTE | 2021-02-14 16:16 | PCM.OPRPT ---
Report of Operation Date of Procedure: 02/14/21 Description of Surgical Findings:: Preoperative diagnosis: #1 right L5 and S1 radiculopathy #2 status post lumbar laminectomy L5-S1 and L4-5 on the right Postoperative diagnosis: The same Procedure: #1 posterior fusion L 5/ S1 CPT code 22267 #2 repeat laminectomy L4-5 and L5-S1 CPT code 14450 #3 internal fixation L4-S1 CPT code 76222 #4 posterior fusion L4-L5 CPT code 04586/51 Surgeon: Dr. Jorge sociology research assistant: Vonda AVILEZ Anesthesia: General endotracheal anesthesia administered by [facility] Estimated blood loss 350 cc for both the anterior surgery and the posterior surgery with 125 cc given back to the patient via the Cell Saver Drains: Medium Hemovac Complications: None Procedure: Once the anterior surgery was done in the abdomen closed we then turned the patient over onto the prone position on the Darwin frame. After appropriate positioning with care to protect his bony prominences the ulnar nerves of both elbows the facial features and the axilla on either side and the genitalia the back was then prepped and draped standard fashion at the mid incision over the old incision and extended a bit in either direction. Subcutaneous tissues were incised the length of the skin incision. We then opened the lumbar fascia first to the right of the spinous processes and elevated the paravertebral muscles off of the lamina of L4 this was done very carefully as he had the previous laminectomy done at that level identified the facet I went out over the facet we then put a marker in place at L4-5 and took an intraoperative x-ray to confirm that we were indeed at that level which we were. With a Elvia retractor in place over the facet I then began the slow process of repeating the laminectomy for some release the scar tissue of which she had much from around the laminotomy site of the large laminotomy site with 45 B. Kerrison rongeurs and perform medial facetectomy also note that he had a tremendous amount of scar tissue around the dura and nerve. Once done however we checked the foramen was quite open I then moved to tailor down to the next level at L5-S1 the old laminotomy was identified after using the curettes to release the scar from underneath the lamina of the laminectomy was then enlarged as it was at the level above. This was done using 45 3 Kerrison rongeurs along with a medial facetectomy and foraminotomies. It was no more pressure left on the scarred nerve root and the dura. Following this we then opened the opposite side elevating the paravertebral muscles off the lamina for the lamina 5 and the lamina of S1. The super slide was then put in place it was that thoroughly irrigated following this we simply packed both laminotomy sites as it had some epidural bleeding with thrombin-soaked Gelfoam once the bone was completely exposed we will use a bur to bur the lamina of S1 lamina L5 and the lamina of L4 this was done on both sides. We then removed the Gelfoam from the laminotomy sites and put a amnionic membrane over both laminotomy sites to prevent any further adhesions. Gelfoam was placed over the top of this. I then used Sparc a bone graft in both of the gutters followed by the use of DBM that was soaked in the patient's own stem cells over the top of that. The internal fixation device was then applied going between L4 all the way down to S1. Once in place the locking mixed mechanisms were activated. A medium Hemovac drain was inserted and closure was begun. First I closed the lumbar fascia using mphbrs-fm-rabhu suture with #1 Vicryl 5 the closure of subcutaneous tissues with a 2-0 Vicryl and 0 Vicryl in layers in interrupted fashion and the skin was approximated using skin clips sterile dressings were then applied. Patient was then recovered in the OR he was moved to his hospital bed and taken to recovery in satisfactory condition. This is the end of operative summary on [facility]. This is Dr. Jorge dictating.
--- NOTE | 2021-02-14 17:03 | SUR.PHASEI ---
PT FINGERTIPS COOL TO TOUCH TO BOTH HANDS
--- NOTE | 2021-02-14 20:16 | PCS.PANDOC ---
PANDEMIC DOCUMENTATION INITIATED: Date: 11/28/2020 Time: 190
--- NOTE | 2021-02-14 20:28 | PN.HOSP_ITS ---
Subjective Subjective Comes requested by Dr. Jorge for postop medical management. Patient having pain postop his laminectomy and fixation. Objective Data Objective Data Vital Signs: Vital Signs Temp Pulse Resp BP Pulse Ox 36.7 C 84 20 H 122/74 H 91 02/14/21 20:16 02/14/21 20:16 02/14/21 20:16 02/14/21 20:16 02/14/21 20:16 Oxygen Flow Rate (L/min) 4 Oxygen Delivery Method Nasal Cannula Weight: 112.5 kg Body Mass Index (BMI) 35.6 Intake & Output: Intake and Output for Last 24 Hours 02/12/21 02/13/21 02/14/21 23:59 23:59 23:59 Intake Total 5216.5 / 5216.5 Output Total 720 / 720 Balance 4496.5 / 4496.5 Lab / Micro Data Result Diagrams: 02/02/21 13:14 02/02/21 13:14 Labs: Laboratory Results - last 24 hr 02/14/21 06:11: POC Glucose 101 Micro: Microbiology 02/02/21 13:14 Swab (Method) Nasal Screen MRSA/MSSA - Final Radiography Diagnostic Testing: Radiology Impression Lumbar Spine X-Ray 02/14/21 07:30 IMPRESSION: The localization instrument is seen along the anterior aspect of the L5-S1 disc space level. Electronically Signed: Lonny Olivier MD at 14:42 EDT , Service support , Spine X-Ray 02/14/21 10:45 IMPRESSION: Localization instrument is seen on the anterior aspect of the L4-L5 disc space level. Electronically Signed: Lonny Olivier MD at 13:04 EDT , Service support , Spine X-Ray 02/14/21 11:35 IMPRESSION: Status post anterior fusion with prosthetic disc placement at the L4-L5 and L5-S1 levels. Electronically Signed: Lonny Olivier MD at 13:07 EDT , Service support , Spine X-Ray 02/14/21 16:05 IMPRESSION: Fusion of the L4-5 and L5-S1 disc spaces. Electronically Signed: Tripp Lopez DO at 17:09 EDT Tel [phone], Service support , Physical Exam Const alert and no apparent distress Neck no lymphadenopathy Resp normal respiratory effort and no retractions Cardio regular rate and regular rhythm GI normal to inspection, nondistended, normoactive bowel sounds and soft to palpation Extremity normal to inspection Skin no rashes or lesions noted and no wounds Neuro no focal motor deficits and no sensory deficits noted Sensorium / Orientation: awake and alert Assessment & Plan Assessment/Plan (1) Radiculopathy, lumbar region: PLAN: 1. Status post L4-5 and L5-S1 laminectomy with fixation internal and posterior * Management per spine surgery 2. VTE prophylaxis: SCDs been ordered At present, patient is medically stable. I do not anticipate any acute medical issues at this point. The hospital service will follow peripherally. Please do not hesitate to contact the hospitalist of any issues or concerns. Charges/Coding Visit Charges Inpatient E&M: 36863 Subs Hosp L2
[2021-02-14] MEDS: Cefazolin 1 GM/50 ML BAG IV (21:01)
[2021-02-14] MEDS: Morphine 4 MG/ML Syringe IV (21:02)
[2021-02-15] MEDS: Senna/Docusate Sodium 1 Tablet 2 TABLET PO ×3 (00:08→20:54)
[2021-02-15] MEDS: Pregabalin 75 MG Capsule 150 MG PO ×2 (00:08→21:00)
[2021-02-15] MEDS: Pantoprazole Sodium 40 MG Tablet PO ×2 (00:08→20:54)
[2021-02-15] MEDS: Morphine 4 MG/ML Syringe IV ×4 (00:08→21:02)
[2021-02-15 00:16] VITALS: BP 141/61; PULSE 90; RESP 18; TEMP 36.8; O2SAT 98
[2021-02-15] MEDS: Cefazolin 1 GM/50 ML BAG IV (02:17)
[2021-02-15] MEDS: Lactated Ringers 1,000 ML 100 ML IV ×2 (05:13→17:49)
[2021-02-15 05:14] VITALS: BP 130/68; PULSE 95; RESP 18; TEMP 36.7; O2SAT 94
--- NOTE | 2021-02-15 07:24 | PN.HOSP_ITS ---
Objective Data Objective Data Vital Signs: Vital Signs Temp Pulse Resp BP Pulse Ox 98.0 F 95 18 130/68 H 94 02/15/21 05:14 02/15/21 05:14 02/15/21 05:14 02/15/21 05:14 02/15/21 05:14 Oxygen Flow Rate (L/min) 2 Oxygen Delivery Method Nasal Cannula Weight: 248 lb 0.321 oz Body Mass Index (BMI) 35.6 Intake & Output: Intake and Output for Last 24 Hours 02/13/21 02/14/21 02/15/21 23:59 23:59 23:59 Intake Total 5714.83 / 5714.83 1909 / 1909 Output Total 720 / 720 710 / 710 Balance 4994.83 / 4994.83 1200 / 1200 Lab / Micro Data Result Diagrams: 02/02/21 13:14 02/02/21 13:14 Labs: Laboratory Results - last 24 hr 02/14/21 06:11: POC Glucose 101 Micro: Microbiology 02/02/21 13:14 Swab (Method) Nasal Screen MRSA/MSSA - Final Radiography Diagnostic Testing: Radiology Impression Lumbar Spine X-Ray 02/14/21 07:30 IMPRESSION: The localization instrument is seen along the anterior aspect of the L5-S1 disc space level. Electronically Signed: Lonny Olivier MD at 14:42 EDT , Service support , Spine X-Ray 02/14/21 09:20 IMPRESSION: Evidence of anterior fusion at L5-S1. Electronically Signed: Tripp Lopez DO at 22:38 EDT Tel [phone], Service support , Spine X-Ray 02/14/21 10:45 IMPRESSION: Localization instrument is seen on the anterior aspect of the L4-L5 disc space level. Electronically Signed: Lonny Olivier MD at 13:04 EDT , Service support , Spine X-Ray 02/14/21 11:35 IMPRESSION: Status post anterior fusion with prosthetic disc placement at the L4-L5 and L5-S1 levels. Electronically Signed: Lonny Olivier MD at 13:07 EDT , Service support , Spine X-Ray 02/14/21 11:44 IMPRESSION: Intraoperative image as above. Electronically Signed: Tripp [place] kimberly at 23:46 EDT Tel [phone], Service support , Spine X-Ray 02/14/21 16:05 IMPRESSION: Fusion of the L4-5 and L5-S1 disc spaces. Electronically Signed: Tripp [place] kimberly at 17:09 EDT Tel [phone], Service support , Physical Exam Narrative Complain of localized back pain over operative area lumbar spine. Denies radiation of pain to thighs which he had before surgery. General: Alert, Oriented x3, Cooperative HEENT: Atraumatic, PERRLA, EOMI, Normocephalic Oral: No Gingival or Mucosal Lesions/ Ulcerations Neck: Supple, No JVD, Negative Carotid Bruits Lungs: Air entry Equal in bilateral lung bases. No crepitation/rhonchi Cardiovascular: Regular rate, Regular Rhythm, Normal S1, Normal S2, No murmurs Abdomen: Bowel Sounds Present, Soft, Non Tender, Non-Distended : No renal angle tenderness. No suprapubic tenderness. Extremities: No edema, Capillary Refill Less than 3 Seconds Skin: No rashes, No breakdown Musculoskeletal/Spine: Drain in the back. No drainage/soakage. Localised Tenderness to operative region. Neurological: Cranial nerves II-XII grossly intact, DTR 2+/4 and Symmetrical, Neuro grossly intact Psych/Mental Status: Normal Affect, Appropriate. Assessment & Plan Assessment/Plan (1) Radiculopathy, lumbar region: PLAN: 1. Status post L4-5 and L5-S1 laminectomy with fixation internal and posterior Pain control. PT and OT. Surgical dressing is dry. No soakage. Localized tenderness present. 2. VTE prophylaxis: SCDs been ordered At present, patient is medically stable. Patient does not have any chronic heart disease lung disease or GI issues.
[2021-02-15 07:55] VITALS: O2SAT 94
[2021-02-15 08:16] VITALS: BP 122/67; PULSE 95; RESP 18; TEMP 37.1; O2SAT 99
[2021-02-15] MEDS: Ensure Surgery 237 ML LIQUID PO ×2 (10:01→12:00)
[2021-02-15] MEDS: oxyCODONE 5 MG Tablet PO ×2 (10:06→14:46)
--- NOTE | 2021-02-15 10:30 | CASEMGMT ---
Call Received from [facility]: Pt has been assigned a renal case manager to assist with any discharge planning needs: Bobbi Hernandez who can be reached at [phone], opt 1, ext [phone]; . Cecilia Lopez RN CM
--- NOTE | 2021-02-15 12:00 | CASEMGMT ---
RN CM Face to Face with patient for initial transition planning/care coordination assessment. RN CM introduced self and role at [facility]. Patient lying in bed, alert and oriented. Patient willing to participate in assessment and is able to answer all questions appropriately. Care providers, pharmacy, and demographics verified. Patient wishes to discharge home, denies need for home health at this time. Patient states he has no further needs or concerns at this time. CM to follow for discharge planning needs that may arise. PCP: [facility] Specialists: Luisito spinal surgeon Preferred Pharmacy: [facility] Insurance: [place] PPO Prescription Benefit: yes Living Will/HPOA: none LNOK: Living Arrangements: Patient lives with in a single story home with 3 steps to enter the home. Patient states he was independent at home prior to surgery Transportation: self, DME/HHC: patient denies previous HHC or DME. Will monitor for need for walker at discharge. Disposition Plan: Patient to discharge home with family support and follow-up plans in place. Minerva SELLERS, RN, CM
[2021-02-15] MEDS: Acetaminophen 325 MG Tablet 650 MG PO (13:36)
--- NOTE | 2021-02-15 14:25 | PCM.PN.ORT ---
Objective Data Objective Data Vital Signs: Vital Signs Temp Pulse Resp BP Pulse Ox 98.7 F 95 18 122/67 H 99 02/15/21 08:16 02/15/21 08:16 02/15/21 08:16 02/15/21 08:16 02/15/21 08:16 Oxygen Flow Rate (L/min) 2 Oxygen Delivery Method Room Air Weight: 248 lb 0.321 oz Body Mass Index (BMI) 35.6 Intake & Output: Intake and Output for Last 24 Hours 02/13/21 02/14/21 02/15/21 23:59 23:59 23:59 Intake Total 5714.83 / 5714.83 1909 / 1909 Output Total 720 / 720 710 / 710 Balance 4994.83 / 4994.83 1200 / 1200 Lab / Micro Data Result Diagrams: 02/02/21 13:14 02/02/21 13:14 Micro: Microbiology 02/02/21 13:14 Swab (Method) Nasal Screen MRSA/MSSA - Final Radiography Diagnostic Testing: Radiology Impression Lumbar Spine X-Ray 02/14/21 07:30 IMPRESSION: The localization instrument is seen along the anterior aspect of the L5-S1 disc space level. Electronically Signed: Lonny Olivier MD at 14:42 EDT , Service support , Spine X-Ray 02/14/21 09:20 IMPRESSION: Evidence of anterior fusion at L5-S1. Electronically Signed: Tripp Lopez DO at 22:38 EDT Tel [phone], Service support , Spine X-Ray 02/14/21 11:44 IMPRESSION: Intraoperative image as above. Electronically Signed: Tripp Lopez DO at 23:46 EDT Tel [phone], Service support , Spine X-Ray 02/14/21 16:05 IMPRESSION: Fusion of the L4-5 and L5-S1 disc spaces. Electronically Signed: Tripp Lopez DO at 17:09 EDT Tel [phone], Service support , Procedure Criteria Elective Risks - COVID COVID Risk Discussion: Postop day #1. Patient has no complaints other than some back pain as expected. He still has not passed any gas and on examination he has no bowel sounds. We will keep him on clear liquids for now. He has already been up and walked around the floor several times outside the room. Overall he is doing quite well. He also reports that his right buttocks and thigh pain is completely gone. His dressing is dry we will remove the drain and change the dressing tomorrow. Progress is satisfactory.
[2021-02-15 20:45] VITALS: BP 119/49; PULSE 98; RESP 16; TEMP 37.6; O2SAT 94
[2021-02-15] MEDS: 0.9% Saline Lock 10 ML Syringe IV (21:03)
[2021-02-16] MEDS: Acetaminophen 325 MG Tablet 650 MG PO ×3 (02:07→21:08)
[2021-02-16] MEDS: oxyCODONE 5 MG Tablet PO ×4 (02:08→21:07)
[2021-02-16 02:44] VITALS: BP 124/64; PULSE 101; RESP 18; TEMP 36.7; O2SAT 94
[2021-02-16] MEDS: Lactated Ringers 1,000 ML 100 ML IV (03:47)
[2021-02-16 07:38] VITALS: O2SAT 94
--- NOTE | 2021-02-16 09:01 | PN.HOSP_ITS ---
Subjective Subjective Complain of postop pain over the back. Has Deleon catheter in a order to discontinue it. Objective Data Objective Data Vital Signs: Vital Signs Temp Pulse Resp BP Pulse Ox 98.0 F 101 H 18 124/64 H 94 02/16/21 02:44 02/16/21 02:44 02/16/21 02:44 02/16/21 02:44 02/16/21 07:38 Oxygen Flow Rate (L/min) 2 Oxygen Delivery Method Room Air Weight: 248 lb 0.321 oz Body Mass Index (BMI) 35.6 Intake & Output: Intake and Output for Last 24 Hours 02/14/21 02/15/21 02/16/21 23:59 23:59 23:59 Intake Total 5714.83 / 5714.83 5610 / 6010 1846.67 / 1846.67 Output Total 720 / 720 2780 / 3780 1530 / 1530 Balance 4994.83 / 4994.83 2830 / 2230 316.67 / 316.67 Lab / Micro Data Result Diagrams: 02/02/21 13:14 02/02/21 13:14 Micro: Microbiology 02/02/21 13:14 Swab (Method) Nasal Screen MRSA/MSSA - Final Physical Exam Narrative Complain of localized back pain over operative area lumbar spine. Denies radicular or radiation to legs. General: Alert, Oriented x3, Cooperative HEENT: Atraumatic, PERRLA, EOMI, Normocephalic Oral: No Gingival or Mucosal Lesions/ Ulcerations Neck: Supple, No JVD, Negative Carotid Bruits Lungs: Air entry Equal in bilateral lung bases. No crepitation/rhonchi Cardiovascular: Regular rate, Regular Rhythm, Normal S1, Normal S2, No murmurs Abdomen: Bowel Sounds Present, Soft, Non Tender, Non-Distended : No renal angle tenderness. No suprapubic tenderness. Extremities: No edema, Capillary Refill Less than 3 Seconds Skin: No rashes, No breakdown Musculoskeletal/Spine: Drain in the back. Dressing is dry but a small spot of blood. High do not think it needs to be changed. Localised Tenderness to ope rative region. Neurological: Cranial nerves II-XII grossly intact, DTR 2+/4 and Symmetrical, Neuro grossly intact Psych/Mental Status: Normal Affect, Appropriate. Assessment & Plan Assessment/Plan (1) Radiculopathy, lumbar region: PLAN: 1. Status post L4-5 and L5-S1 laminectomy with fixation internal and posterior Pain control. PT and OT. Localized tenderness present. 02/16: DC Deleon catheter. Small tiny spot of blood in dressing but dressing is dry overall. Has a small drain in the back. 2. VTE prophylaxis: SCDs been ordered At present, patient is medically stable. Patient does not have any chronic heart disease lung disease or GI issues. Charges/Coding Visit Charges Inpatient E&M: 16486 Subs Hosp L2
[2021-02-16 09:56] VITALS: BP 138/71; PULSE 91; RESP 18; TEMP 36.7; O2SAT 94
[2021-02-16] MEDS: Ensure Surgery 237 ML LIQUID PO ×2 (09:57→13:54)
[2021-02-16] MEDS: Tamsulosin HCl 0.4 MG Capsule PO (10:01)
[2021-02-16] MEDS: Senna/Docusate Sodium 1 Tablet 2 TABLET PO ×2 (10:01→21:07)
--- NOTE | 2021-02-16 11:13 | PN.ORTHO_ITS ---
Objective Data Objective Data Vital Signs: Vital Signs Temp Pulse Resp BP Pulse Ox 98.1 F 91 18 138/71 H 94 02/16/21 09:56 02/16/21 09:56 02/16/21 09:56 02/16/21 09:56 02/16/21 09:56 Oxygen Flow Rate (L/min) 2 Oxygen Delivery Method Room Air Weight: 248 lb 0.321 oz Body Mass Index (BMI) 35.6 Intake & Output: Intake and Output for Last 24 Hours 02/14/21 02/15/21 02/16/21 23:59 23:59 23:59 Intake Total 5714.83 / 5714.83 5610 / 6010 1846.67 / 1846.67 Output Total 720 / 720 2780 / 3780 1530 / 1530 Balance 4994.83 / 4994.83 2830 / 2230 316.67 / 316.67 Lab / Micro Data Result Diagrams: 02/02/21 13:14 02/02/21 13:14 Micro: Microbiology 02/02/21 13:14 Swab (Method) Nasal Screen MRSA/MSSA - Final Procedure Criteria Elective Risks - COVID COVID Risk Discussion: Postop day2. patient is seen on rounds. We change his dressing and removed his drain. The incision is healing well. Neurologically h e is intact. He has some slight bowel sounds now and is actually passed a little gas. We still will not feed him food until tomorrow and keep him on clear liquids for now. He has been up and walking he still complains that he has quite a bit of low back pain. Hopefully he will turn the corner tomorrow. We will consider sending him home depending on how he feels tomorrow. We will remove the catheter later today but because he is have his history of having problems after catheter removal we did start him on Flomax earlier. I will see him again tomorrow.
[2021-02-16 13:00] VITALS: BP 120/58; PULSE 94; RESP 18; TEMP 36.8; O2SAT 94
[2021-02-16 18:00] VITALS: BP 164/75; PULSE 96; RESP 18; TEMP 37.3; O2SAT 96
[2021-02-16] MEDS: Morphine 4 MG/ML Syringe IV (18:08)
[2021-02-16] MEDS: 0.9% Saline Lock 10 ML Syringe IV (18:08)
[2021-02-16 21:05] VITALS: BP 148/65; PULSE 96; RESP 16; TEMP 37.3; O2SAT 92
[2021-02-16] MEDS: Pregabalin 75 MG Capsule 150 MG PO (21:07)
[2021-02-16] MEDS: Pantoprazole Sodium 40 MG Tablet PO (21:07)
[2021-02-16] MEDS: Zolpidem Tartrate 5 MG Tablet PO (21:08)
[2021-02-17] VITALS (8 sets, daily range): BP systolic 132–148; BP diastolic 66–77; PULSE 90–102; RESP 15–18; TEMP 36.6–37.4; O2SAT 91–97
[2021-02-17] MEDS: oxyCODONE 5 MG Tablet PO ×3 (01:24→20:24)
[2021-02-17] MEDS: diazePAM 5 MG Tablet PO (01:24)
[2021-02-17] MEDS: Tamsulosin HCl 0.4 MG Capsule PO (08:32)
[2021-02-17] MEDS: Senna/Docusate Sodium 1 Tablet 2 TABLET PO ×2 (08:32→20:24)
[2021-02-17] MEDS: Ensure Surgery 237 ML LIQUID PO ×3 (08:33→15:28)
[2021-02-17] MEDS: 0.9% Saline Lock 10 ML Syringe IV ×2 (10:42→18:55)
[2021-02-17] MEDS: Morphine 4 MG/ML Syringe IV ×4 (10:42→23:51)
--- NOTE | 2021-02-17 11:01 | PN.HOSP_ITS ---
Subjective Subjective Mild low-grade temperature 99.2, 99.4 Fahrenheit. Patient felt cold. Labs CBC, CRP and CMP ordered. Objective Data Objective Data Vital Signs: Vital Signs Temp Pulse Resp BP Pulse Ox 99.4 F H 99 18 145/77 H 96 02/17/21 08:30 02/17/21 08:30 02/17/21 08:30 02/17/21 08:30 02/17/21 08:30 Oxygen Flow Rate (L/min) 2 Oxygen Delivery Method Room Air Weight: 248 lb 0.321 oz Body Mass Index (BMI) 35.6 Intake & Output: Intake and Output for Last 24 Hours 02/15/21 02/16/21 02/17/21 23:59 23:59 23:59 Intake Total 5610 / 6010 4246.67 / 4646.67 640 / 640 Output Total 2780 / 3780 2030 / 2630 600 / 600 Balance 2830 / 2230 2216.67 / 2016.67 40 / 40 Lab / Micro Data Result Diagrams: 02/02/21 13:14 02/02/21 13:14 Micro: Microbiology 02/02/21 13:14 Swab (Method) Nasal Screen MRSA/MSSA - Final Physical Exam Narrative Mild chills with low-grade fever. Complain of localized back pain over operative area lumbar spine. Denies radicular or radiation to legs. General: Alert, Oriented x3, Cooperative HEENT: Atraumatic, PERRLA, EOMI, Normocephalic Oral: No Gingival or Mucosal Lesions/ Ulcerations Neck: Supple, No JVD, Negative Carotid Bruits Lungs: Air entry Equal in bilateral lung bases. No crepitation/rhonchi Cardiovascular: Regular rate, Regular Rhythm, Normal S1, Normal S2, No murmurs Abdomen: Bowel Sounds Present, Soft, Non Tender, Non-Distended : Chronic urinary tract symptoms of increased urgency, difficulty emptying, straining sometimes. On Flomax. No suprapubic tenderness. Extremities: No edema, Capillary Refill Less than 3 Seconds Skin: No rashes, No breakdown Musculoskeletal/Spine: Drain removed. Dressing was changed. Localized tenderness to operative region. Neurological: Cranial nerves II-XII grossly intact, DTR 2+/4 and Symmetrical, Neuro grossly intact Psych/Mental Status: Normal Affect, Appropriate. Assessment & Plan Assessment/Plan (1) Radiculopathy, lumbar region: PLAN: 1. Status post L4-5 and L5-S1 laminectomy with fixation internal and posterior Pain control. PT and OT. Localized tenderness present. 02/16: DC Deleon catheter. Small tiny spot of blood in dressing but dressing is dry overall. Has a small drain in the back. 02/17: On Flomax. Has chronic lower urinary tract symptoms of increased urgency, sometimes straining and hesitancy and incomplete emptying of bladder. Need furt her work-up with urologist. Dr. Jorge follow-up reviewed and appreciated 2. VTE prophylaxis: SCDs been ordered Charges/Coding Visit Charges Inpatient E&M: 29406 Subs Hosp L2
[2021-02-17 12:10] LABS: Absolute Lymphocyte Count 1.58 X10^3/uL (0.83-4.51); Absolute Neutrophil Count 10.6 X10^3/uL (2.0-7.7); Basophil# 0.03 X10^3/uL; Basophil% 0.2 % (0-1); Eosinophils% 0.8 % (0-5); Hematocrit 31.9 % (40-54); Hemoglobin 11.1 g/dL (13.0-16.5); Lymphocyte # 1.58 X10^3/ul (0.83-4.51); Mean Corp Hgb Conc 34.8 g/dL (32-36); Mean Corpuscular Hgb 31.7 pg (27.0-32.0); Mean Corpuscular Volume 91.1 fL (80-94); Mean Platelet Vol. 8.6 fl (6.2-12.0); Monocyte# 0.83 X10^3/uL; Monocyte% 6.3 % (0-10); NRBC Flagged by Analyzer 0 % (0-5); Neutrophil % 80.3 % (47-70); Platelet Count 242 K/mm3 (150-450); RBC Distribution Width CV 12.7 % (11.6-14.6); White Blood Count 13.2 K/mm3 (4.4-11.0)
[2021-02-17 12:39] LABS: ALB/GLOB Ratio 0.6 RATIO (0.9-2.4); AST(SGOT) 30 U/L (15-37); Alanine Aminotransfer ALT/SGPT 13 U/L (16-61); Albumin, Serum 2.6 g/dL (3.2-5.0); Alkaline Phosphatase 52 U/L (45-117); Anion Gap 5 (5-15); BUN 12 mg/dL (7-18); BUN/Creat Ratio 9.4 RATIO (10-20); Calcium,Total 8.3 mg/dL (8.5-10.1); Chloride 102 mmol/L (98-107); Creatinine, Serum 1.27 mg/dL (0.70-1.30); EST Glomerular Filtration Rate 62 mL/min (>60); Est Glom Filt Rate - Afr Amer 75 mL/min (>60); Estimated Creatinine Clearance 64.67 ml/min; Globulin 4.1 g/dL (2.2-4.2); Glucose 118 mg/dL (74-106); Potassium 3.9 mmol/L (3.5-5.1); Protein, Total 6.7 g/dL (6.4-8.2); Sodium Level 135 mmol/L (136-145)
--- NOTE | 2021-02-17 13:21 | PCM.PN.ORT ---
Objective Data Objective Data Vital Signs: Vital Signs Temp Pulse Resp BP Pulse Ox 99.4 F H 99 18 145/77 H 96 02/17/21 08:30 02/17/21 08:30 02/17/21 08:30 02/17/21 08:30 02/17/21 08:30 Oxygen Flow Rate (L/min) 2 Oxygen Delivery Method Room Air Weight: 248 lb 0.321 oz Body Mass Index (BMI) 35.6 Intake & Output: Intake and Output for Last 24 Hours 02/15/21 02/16/21 02/17/21 23:59 23:59 23:59 Intake Total 5610 / 6010 4246.67 / 4646.67 640 / 640 Output Total 2780 / 3780 2030 / 2630 600 / 600 Balance 2830 / 2230 2216.67 / 40 / 40 Lab / Micro Data Result Diagrams: 02/17/21 11:50 02/17/21 11:50 Labs: Laboratory Results - last 24 hr 02/17/21 11:50: WBC 13.2 H, RBC 3.50 L, Hgb 11.1 L, Hct 31.9 L, MCV 91.1, MCH 31.7, MCHC 34.8, RDW Std Deviation 42.0, RDW Coeff of Shamika 12.7, Plt Count 242, MPV 8.6, Immature Gran % (Auto) 0.400, Neut % (Auto) 80.3 H, Lymph % (Auto) 12.0 L, [place] % (Auto) 6.3, Eos % (Auto) 0.8, Baso % (Auto) 0.2, Absolute Neuts (auto) 10.6 H, Absolute Lymphs (auto) 1.58, Nucleated RBC % 0 02/17/21 11:50: Sodium 135 L, Potassium 3.9, Chloride 102, Carbon Dioxide 28.0, Anion Gap 5, BUN 12, Creatinine 1.27, Estim Creat Clear Calc 64.67, Est GFR (MDRD) Af Amer 75, Est GFR (MDRD) Non-Af 62, BUN/Creatinine Ratio 9.4 L, Glucose 118 H, Calcium 8.3 L, Total Bilirubin 0.70, AST 30, ALT 13 L, Alkaline Phosphatase 52, C-React Prot Ext Range 239.00 H, Total Protein 6.7, Albumin 2.6 L, Globulin 4.1, Albumin/Globulin Ratio 0.6 L Micro: Microbiology 02/02/21 13:14 Swab (Method) Nasal Screen MRSA/MSSA - Final Procedure Criteria Elective Risks - COVID COVID Risk Discussion: Yoseph is doing reasonably well. He is started with a little flatulence today but his sounds are still hypo in his abdomen. For that reason we will keep him on clear liquids for now. I would call this a borderline ileus at this point. In addition he is having some trouble transferring from the bed to the walker and is a little unsteady as I observed and I feel that he needs to be more steady before he can go home as part of the time he will be alone at home because his goes to school. The dressing is dry neurologically he is intact. Hopefully will progress more between now and tomorrow so that he can go home.
--- NOTE | 2021-02-17 14:49 | CASEMGMT ---
Addendum entered by Valdemar Richter 02/18/21 11:17: [facility] will [facility] a [facility]er on the weekend. TC to pt's , Gato, and she was made aware. She states she will purchase a walker prior to pt's discharge for pt to have when he goes home. Addendum entered by Valdemar Richter 02/17/21 16:37: TC to customer service # on pt's insurance card and spoke w/Chandler @ [employer]. She states [employer] and [facility] is in-network w/pt's insurance. CELINE GROSS looked up [employer] in and near [place], [place], and unable to find contact information. TC back to [facility] and spoke w/sales support representative. She was made aware [facility] [facility] network. She states Ted ran pt's insurance and it was denied and if pt would like to pay for walker [id number] then they can try and process through insurance again next week. Cost of walker is $71.54. CELINE GROSS to room and pt was made aware of above. He states CELINE GROSS can review same w/his . TC to , [employer] and she was notified of above. Also discussed options of other locations walker can be purchased. Gato states would prefer to pay for walker thru [facility] and she will speak w/Shiva next week to try to have processed through insurance. Script for walker given to pt. Gato made aware. Script faxed to [facility]. TC to [facility]. Local Office is closed. CELINE GROSS spoke w/[employer]iva's corporate office. She was made aware would like to pay for walker [id number], that pt is discharging home tomorrow, and walker to be delivered to pt @ [facility] prior to discharge. She states will notify local office re: same. TC back to [employer]. She was made aware [facility] may not deliver walker on weekends. She states they can purchase one elsewhere if needed and thanked CELINE GROSS for information. Original Note: CELINE GROSS NOTE: CELINE GROSS to room to discuss discharge planning. Pt sitting up in chair in room. @ bedside. Pt states would like to get a walker to take home. Pt/ given list of local DME companies. They do not have a preference. TC to [employer]. They are out of walkers. TC to [facility] and spoke w/Hope. [facility] is not in network w/pt's insurance. TC to Ted @ [facility]. They are not in network. Avis CRUZN RN CM
[2021-02-17] MEDS: Ondansetron 4 MG/2 ML Vial IV (18:55)
[2021-02-17] MEDS: Pantoprazole Sodium 40 MG Tablet PO (20:24)
[2021-02-17] MEDS: Pregabalin 75 MG Capsule 150 MG PO (23:50)
[2021-02-17] MEDS: Zolpidem Tartrate 5 MG Tablet PO (23:50)
[2021-02-18 02:06] VITALS: BP 150/70; PULSE 86; RESP 15; TEMP 36.8; O2SAT 92
[2021-02-18] MEDS: Morphine 4 MG/ML Syringe IV ×2 (02:15→07:47)
[2021-02-18] MEDS: 0.9% Saline Lock 10 ML Syringe IV (02:15)
[2021-02-18 03:00] VITALS: RESP 15; O2SAT 93
[2021-02-18 04:51] VITALS: BP 137/72; PULSE 89; RESP 16; TEMP 36.7; O2SAT 92
[2021-02-18] MEDS: oxyCODONE 5 MG Tablet PO (04:55)
[2021-02-18] MEDS: Acetaminophen 325 MG Tablet 650 MG PO (07:45)
[2021-02-18] MEDS: diazePAM 5 MG Tablet PO (07:48)
[2021-02-18 08:03] VITALS: BP 131/76; PULSE 95; RESP 18; TEMP 36.5; O2SAT 95
[2021-02-18 08:18] VITALS: RESP 18
[2021-02-18] MEDS: oxyCODONE 5 MG Tablet 10 MG PO (09:01)
[2021-02-18] MEDS: Senna/Docusate Sodium 1 Tablet 2 TABLET PO (09:01)
[2021-02-18] MEDS: Tamsulosin HCl 0.4 MG Capsule PO (09:02)
[2021-02-18] MEDS: Ensure Surgery 237 ML LIQUID PO (09:54)
--- NOTE | 2021-02-18 10:15 | NURSING ---
Nurse followed up with pain scale post morphine and valium administration. He is notified that returned phone call and morphine was discontinue and that oxy is now 10 mg schedule every six hours. Pt states to this nurse that was not classy Nurse respond this is not about classy this is about addressing your uncontrolled pain with need to increase po pain meds for home pain management. Pt is given 10 mg of schedule oxy. H is up with physical therapy and per report he is independent and rates his pain as 5. He in on sandie light stating that he is overdue for his morphine. Charge nurse into re-notify pt. is called and he is updated and states he is getting ready to come see and discharge pt. And to remind him that if he takes the morphine he will not be able to go home. Goal is to control his pain with po pain meds.
--- NOTE | 2021-02-18 11:18 | PN.HOSP_ITS ---
Subjective Subjective Patient back pain is better. Able to move around. Possible discharge today Objective Data Objective Data Vital Signs: Vital Signs Temp Pulse Resp BP Pulse Ox 97.7 F L 95 18 131/76 H 95 02/18/21 08:03 02/18/21 08:03 02/18/21 08:18 02/18/21 08:03 02/18/21 08:03 Oxygen Flow Rate (L/min) 2 Oxygen Delivery Method Room Air Weight: 248 lb 0.321 oz Body Mass Index (BMI) 35.6 Intake & Output: Intake and Output for Last 24 Hours 02/16/21 02/17/21 02/18/21 23:59 23:59 23:59 Intake Total 4246.67 / 4646.67 640 / 1040 900 / 900 Output Total 2030 / 2630 600 / 600 Balance 2216.67 / 2015. 40 / 440 900 / 900 Lab / Micro Data Result Diagrams: 02/17/21 11:50 02/17/21 11:50 Labs: Laboratory Results - last 24 hr 02/17/21 11:50: WBC 13.2 H, RBC 3.50 L, Hgb 11.1 L, Hct 31.9 L, MCV 91.1, MCH 31.7, MCHC 34.8, RDW Std Deviation 42.0, RDW Coeff of Shamika 12.7, Plt Count 242, MPV 8.6, Immature Gran % (Auto) 0.400, Neut % (Auto) 80.3 H, Lymph % (Auto) 12.0 L, [place] % (Auto) 6.3, Eos % (Auto) 0.8, Baso % (Auto) 0.2, Absolute Neuts (auto) 10.6 H, Absolute Lymphs (auto) 1.58, Nucleated RBC % 0 02/17/21 11:50: Sodium 135 L, Potassium 3.9, Chloride 102, Carbon Dioxide 28.0, Anion Gap 5, BUN 12, Creatinine 1.27, Estim Creat Clear Calc 64.67, Est GFR (MDRD) Af Amer 75, Est GFR (MDRD) Non-Af 62, BUN/Creatinine Ratio 9.4 L, Glucose 118 H, Calcium 8.3 L, Total Bilirubin 0.70, AST 30, ALT 13 L, Alkaline Phosphata se 52, C-React Prot Ext Range 239.00 H, Total Protein 6.7, Albumin 2.6 L, Globulin 4.1, Albumin/Globulin Ratio 0.6 L Micro: Microbiology 02/02/21 13:14 Swab (Method) Nasal Screen MRSA/MSSA - Final Physical Exam Narrative No fever or chills. Lumbar pain is better and improved. Denies radicular or radiation to legs. General: Alert, Oriented x3, Cooperative HEENT: Atraumatic, PERRLA, EOMI, Normocephalic Oral: No Gingival or Mucosal Lesions/ Ulcerations Neck: Supple, No JVD, Negative Carotid Bruits Lungs: Air entry Equal in bilateral lung bases. No crepitation/rhonchi Cardiovascular: Regular rate, Regular Rhythm, Normal S1, Normal S2, No murmurs Abdomen: Bowel Sounds Present, Soft, Non Tender, Non-Distended : Spontaneous voiding. Denies current increased frequency or urgency. No suprapubic tenderness. Extremities: No edema, Capillary Refill Less than 3 Seconds Skin: No rashes, No breakdown Musculoskeletal/Spine: Drain removed. Dressing was changed. Localized tend erness to operative region. Neurological: Cranial nerves II-XII grossly intact, DTR 2+/4 and Symmetrical, Neuro grossly intact Psych/Mental Status: Normal Affect, Appropriate. Assessment & Plan Assessment/Plan (1) Radiculopathy, lumbar region: PLAN: 1. Status post L4-5 and L5-S1 laminectomy with fixation internal and posterior Pain control. PT and OT. Localized tenderness present. 02/16: DC Deleon catheter. Small tiny spot of blood in dressing but dressing is dry overall. Has a small drain in the back. 02/17: On Flomax. Has chronic lower urinary tract symptoms of increased urgency, sometimes straining and hesitancy and incomplete emptying of bladder. Need further work-up with urologist. Dr. Jorge follow-up reviewed 02/18: Patient voided urine spontaneously. Denies history of BPH. Flomax discontinued. 2. VTE prophylaxis: SCDs been ordered Charges/Coding Visit Charges Inpatient E&M: 32028 Subs Hosp L2
--- NOTE | 2021-02-18 12:04 | DS.PCM_ITS ---
Providers Date of Admission: 02/14/21 Primary Care Physician: Dr. Saul Lagos DO Consultations 02/14/21 18:03 Consult: Hospitalist Routine Consulting Provider: Dipak Burgos Reason for Consult: Medical Management EMERGENT Consult: No MD Notified: Yes Date Notified: 02/14/21 Time Notified: 20:00 Method of Notification: Text Reason For Visit: PRE-OP 360 LUMBAR FUSION Diagnosis Discharge Diagnosis (1) Radiculopathy, lumbar region: Status: Acute Code(s): M54.16 - Radiculopathy, lumbar region Medications at Discharge Home Medications oxaprozin 600 mg tablet 600 mg PO QHS 11/19/19 pantoprazole 20 mg tablet,delayed release 40 mg PO QHS 11/19/19 pregabalin 75 mg capsule 150 mg PO QHS 11/19/19 tramadol 50 mg tablet 50 mg PO QHS 11/19/19 testosterone cypionate 200 mg/mL intramuscular oil 200 mg IM .Q2WEEK ml 01/30/21 vitamin B complex 1 tab PO DAILY 01/30/21 magnesium 250 mg PO QHS 01/31/21 Weight / BMI Weight Weight: 248 lb 0.321 oz Body Mass Index (BMI) 35.6 ABG / Lab / Microbiology Data Result Diagrams: 02/17/21 11:50 02/17/21 11:50 Laboratory: Laboratory Results - last 24 hr 02/17/21 11:50: WBC 13.2 H, RBC 3.50 L, Hgb 11.1 L, Hct 31.9 L, MCV 91.1, MCH 31.7, MCHC 34.8, RDW Std Deviation 42.0, RDW Coeff of Shamika 12.7, Plt Count 242, MPV 8.6, Immature Gran % (Auto) 0.400, Neut % (Auto) 80.3 H, Lymph % (Auto) 12.0 L, [place] % (Auto) 6.3, Eos % (Auto) 0.8, Baso % (Auto) 0.2, Absolute Neuts (auto) 10.6 H, Absolute Lymphs (auto) 1.58, Nucleated RBC % 0 02/17/21 11:50: Sodium 135 L, Potassium 3.9, Chloride 102, Carbon Dioxide 28.0, Anion Gap 5, BUN 12, Creatinine 1.27, Estim Creat Clear Calc 64.67, Est GFR (MDRD) Af Amer 75, Est GFR (MDRD) Non-Af 62, BUN/Creatinine Ratio 9.4 L, Glucose 118 H, Calcium 8.3 L, Total Bilirubin 0.70, AST 30, ALT 13 L, Alkaline Phosp hatase 52, C-React Prot Ext Range 239.00 H, Total Protein 6.7, Albumin 2.6 L, Globulin 4.1, Albumin/Globulin Ratio 0.6 L Microbiology: Microbiology 02/02/21 13:14 Swab (Method) Nasal Screen MRSA/MSSA - Final D/C Instructions Discharge Diet: No restrictions Discharge Activity: May Not Drive May shower in (days): 3 Weight Bearing Status: Full weight bearing Lifting Restrictions: 20 pounds Call your doctor if your incision/area has: Increased Pain/ Swelling and Swelling at the incision site Call your doctor if you observe: Fever of 101 or Higher, Chest pain and Calf discomfort Remove Dressing in: 2 days Cleanse incision/area with: Soap & Water Please Follow Up With: Robby Jorge DO When: 10 days Meaningful Use Info Meaningful Use Diagnoses (Choose all that apply): None applicable Discharge Plan Admission Admit Date/Time: 02/14/21 05:40 Primary Reason for Your Visit: surgery Attending Provider: Robby Jorge Primary Care Provider: Saul Lagos Consulting Providers: Dipak Burgos Discharge Orders/Prescriptions Prescriptions: No Action pregabalin [Lyrica] 75 mg capsule 150 mg PO QHS RF: 0 tramadol 50 mg tablet 50 mg PO QHS RF: 0 oxaprozin [Daypro] 600 mg tablet 600 mg PO QHS RF: 0 pantoprazole [Protonix] 20 mg tablet,delayed release (DR/EC) 40 mg PO QHS RF: 0 vitamin B complex [B Complex-Vitamin B12] Tablet 1 tab PO DAILY RF: 0 testosterone cypionate 200 mg/mL oil 200 mg IM .Q2WEEK RF: 0 magnesium 250 mg Tablet 250 mg PO QHS RF: 0 Other Ambulatory Orders: 12 Lead EKG (Routine) Timeframe: [id number] Location: None Selected Ordered By: Dr. Robby Jorge Referrals / Follow Up: Saul Lagos DO [Primary Care Provider] - Disposition Disposition (needs filled in before D/C Order can be placed): Home, Self Care
[2021-02-18 13:30] VITALS: BP 132/75; PULSE 85; RESP 18; TEMP 36.7; O2SAT 95
== END 2021-02-18 13:50 | disposition home or self-care (01) | DRG 455 ==
LOC: ACINP 12:13 → MS2 02-18 12:04
PROVIDERS: Anesthesiology; Internal Medicine; Admitting Provider Orthopaedic Surgery; PCP Preventive Medicine Occupational Medicine; Referring Provider Orthopaedic Surgery; Visit Provider Orthopaedic Surgery
PROC: 0SG10A0 Fusion of 2 or more Lumbar Vertebral Joints with Interbody Fusion Device, Anterior Approach, Anterior Column, Open Approach (ICD-10-PCS; principal; 2021-02-14 07:00)
DX: M51.16 Intervertebral disc disorders with radiculopathy, lumbar region (principal); M19.90 Unspecified osteoarthritis, unspecified site; K21.9 Gastro-esophageal reflux disease without esophagitis; R39.15 Urgency of urination; Z79.899 Other long term (current) drug therapy; Z87.891 Personal history of nicotine dependence
CPT/HCPCS: 36415; 72020; 72100; 80048; 80053; 82962; 83735; 85025; 85610; 85730; 86140; 86703; 86706; 86708; 86803; 87081; 88304; 93005; 97161; 97530; 99251; C1713; J7120; A4216; G0463; J2405

== ENCOUNTER 2021-03-03 11:36 | Inpatient (IN) | payer OTHER, SELFPAY ==
[2021-03-03 11:37] VITALS: BP 144/91; PULSE 82; RESP 16; TEMP 36.3; O2SAT 100; BMI 33.6
--- NOTE | 2021-03-03 12:33 | CT_ITS ---
STUDY: CT ABDOMEN AND PELVIS WITH CONTRAST REASON FOR EXAM: Male, 60 years old. Back and abdominal pain postoperative. Recent low back surgery. RADIATION DOSAGE (If Supplied By Facility): CTDIvol = ( 17.10 ) mGy, DLP = ( 1425.15 ) mGycm TECHNIQUE: Transaxial images were obtained from the dome of the diaphragm to the symphysis pubis without oral contrast. IV 100mL Isovue-300 was administered. Sagittal and coronal images were reconstructed. Individualized dose optimization techniques were used for this CT. COMPARISON: None. FINDINGS: The visualized lung bases are unremarkable. The visualized portions of the heart are within normal limits. Normal liver. Normal gallbladder and extrahepatic biliary system. Normal spleen. Normal pancreas. Normal bilateral adrenal glands. Normal right kidney. Normal left kidney. Normal visualized stomach. Normal small intestine. Normal colon. The appendix is visualized and appears normal. There is scattered atherosclerotic calcification of the abdominal aorta, without a demonstrated aneurysm. Normal inferior vena cava. There is borderline retroperitoneal lymphadenopathy with enlarged nodes no greater than 10mm in the short axis diameter. Normal urinary bladder. Normal abdominal wall. The patient is status post anterior fusion at the L4-L5 and L5-S1 levels with screw and plate devices as well as prosthetic disc material. Mild degree of increased markings in the left pelvic fat. Posterior fusion is seen as well. There is evidence of vascular surgical clips in the region of the left common and external iliac arteries. CT/Abdomen/Pelvis W IV Cont ONLY IMPRESSION: Status post anterior and posterior fusion at the L4-L5 and L5-S1 level with postoperative changes in the pelvis as described. No acute abnormality is seen. Electronically Signed: Lonny Olivier MD at 13:31 EST , Service support ,
--- NOTE | 2021-03-03 12:35 | ED.VIS.BACK ---
HPI History of Present Illness Chief Complaint: Back Informant: spouse/S.O. Narrative Narrative: Patient presents with unremitting back pain since surgery. He had had lower back pain with radiculopathy down his right leg. He was not responding to any outpatient nonsurgical therapy. This reason it was elected to do a 360 degree fusion. This was done here about [address] Jorge. Patient got excellent results with resolution of his radiculopathy symptoms. However he has never been able to get the lower back pain under control. He has had outpatient injections that only helped for matter of hours or a day. They have changed his pain meds. They have tried muscle relaxants. He is on hydromorphone 4 mg every 4 hours. He states it really does not even help the pain. He gets maybe 2 hours of sleep a day. He has no urinary symptoms but he does have constipation. He is not having numbness tingling or weakness. Most of his pain is in the lower back. He gets some in his lower abdomen to the right. Both of his 4incisions are doing well. Patient also feels chilled all the time. When the pain is bad he will actually get a little bit diaphoretic. There has not been a recorded fever though. He saw his physician today again who referred him in here for further evaluation. I did discuss the case with Dr. Jorge prior to patient's arrival. [facility] Medical History Alcohol use Arthritis Back pain Former smoker Gastric reflux History of anal fissures History of pain when walking History of stress test History of trigger finger History of unsteady gait Leg cramps Low iron Marijuana use Migraine headache Wears glasses Home Medications oxaprozin 600 mg tablet 600 mg PO QHS 11/19/19 [History Last Taken 02/13/21] pantoprazole 20 mg tablet,delayed release 40 mg PO QHS 11/19/19 [History Last Taken 02/13/21] pregabalin 75 mg capsule 150 mg PO QHS 11/19/19 [History Last Taken 02/13/21] tramadol 50 mg tablet 50 mg PO QHS 11/19/19 [History Last Taken 02/13/21] testosterone cypionate 200 mg/mL intramuscular oil 200 mg IM .Q2WEEK ml 01/30/21 [History Last Taken 02/13/21] vitamin B complex 1 tab PO DAILY 01/30/21 [History Last Taken 02/13/21] magnesium 250 mg PO QHS 01/31/21 [History Last Taken 02/13/21] diazepam 5 mg tablet 5 mg PO TID PRN #30 tab 02/19/21 [Rx Last Taken Unknown] hydromorphone 4 mg tablet 4 mg PO Q4H PRN 10 Days #60 tab 02/22/21 [Rx Last Taken Unknown] Allergy/AdvReac Type Severity Reaction Status Date / Time shellfish derived Allergy Swelling Verified 02/22/21 10:33 surgical tape Allergy Rash Uncoded 02/14/21 08:21 Family History Mother Lung cancer Father Dementia Surgical History H/O left knee surgery h/o lumbar spine surgery Hx of colonoscopy Hx of hemorrhoidectomy Social History Smoking Status: Former smoker alcohol intake: current alcohol intake frequency: holidays/special occasions only what type of physical activity do you participate in: weight training ROS ROS ED Constitutional Constitutional ED: Reports chills; Denies fever(s) Eyes Eyes: Denies blurry vision ENT ENT ED: Denies rhinorrhea Cardiovascular Cardiovascular: Denies chest pain or palpitations Respiratory/Chest Respiratory/Chest: Denies dyspnea or sputum Gastrointestinal Gastrointestinal: Reports abdominal pain and constipation; Denies diarrhea, nausea or vomiting Genitourinary Genitourinary ED: Denies dysuria, hematuria or urinary frequency Musculoskeletal Musculoskeletal: Reports back pain Integumentary Denies abscess or rash Neurologic Neurologic: Reports other Details: Radiculopathy that was present prior to surgery is gone. ; Denies headache(s), paresthesias or weakness Endocrine Endocrinology: Denies polydipsia or polyuria Hematologic/Lymphatic Hematologic/Lymphatic: Denies easy bleeding or easy bruising Allergic/Immunologic Allergic/Immunologic ED: Denies urticaria EXAM Physical Exam Const Vital Signs: 03/03/21 11:37 Temperature 97.3 F L Temperature Source Oral Pulse Rate 82 Respiratory Rate 16 Blood Pressure 144/91 H Blood Pressure Mean 108 Pulse Ox 100 Oxygen Delivery Method Room Air Positive well nourished and well developed General Appearance ED: well developed HEENT Reports moist mucous membranes Eyes General Eye ED: Negative for pale conjunctiva or scleral icterus Neck no JVD Resp normal respiratory effort Cardio regular rate and regular rhythm GI normal to inspection, nondistended, normoactive bowel sounds, soft to palpation and non-tender GI Narrative: Patient's incision looks beautiful in the lower abdomen. He is complains of some pain off-and-on over the right lower quadrant inguinal area but there is really no tenderness there. I see no mass. No skin changes or rash. Back/Spine normal to inspection Back/Spine Narrative: Patient's incisions are healing well. These were also just looked at by Dr. Jorge. He has diffuse soreness but not focal tenderness. Extremity normal to inspection General Extremety ED: Negative for edema or tenderness General Extremity: Negative for edema Neuro oriented x3 Sensorium / Orientation: alert Psych mental status grossly normal Skin no rashes or lesions noted and no wounds MDM MDM MDM Narrative Medical decision making narrative: Patient work did show a slight elevation of white count at 14. However it was 13 prior. Platelets are high at 821. Electrolytes show some mild dehydration with a creatinine of 1.53. C-reactive protein is elevated but down from what it was. ESR is minimally elevated at 22. Patient did get some relief with some pain meds. But he is still very painful.He has seen pain management, his physician, tried multiple meds as an outpatient without control of his pain. He has intractable back pain. I discussed case with hospitalist and patient will be brought in. Lab Data Attestation: I reviewed the patient's lab results. Labs: Laboratory Results - last 24 hr 03/03/21 03/03/21 11:55 11:55 WBC 14.0 H RBC 4.38 L Hgb 13.6 Hct 40.5 MCV 92.5 MCH 31.1 MCHC 33.6 RDW Std Deviation 41.9 RDW Coeff of Shamika 12.1 Plt Count 821 H* MPV 8.7 Immature Gran % (Auto) 0.500 Neut % (Auto) 83.3 H Lymph % (Auto) 9.9 L [place] % (Auto) 5.7 Eos % (Auto) 0.3 Baso % (Auto) 0.3 Absolute Neuts (auto) 11.7 H Absolute Lymphs (auto) 1.39 Nucleated RBC % 0 Diff Path Review May foll Platelet Estimate MKD INC ESR 22 H Sodium 135 L Potassium 4.3 Chloride 102 Carbon Dioxide 26.0 Anion Gap 7 BUN 25 H Creatinine 1.53 H Estim Creat Clear Calc 53.68 Est GFR (MDRD) Af Amer 60 Est GFR (MDRD) Non-Af 50 L BUN/Creatinine Ratio 16.3 Glucose 97 Calcium 9.7 Total Bilirubin 0.60 AST 9 L ALT 14 L Alkaline Phosphatase 119 H C-React Prot Ext Range 63.90 H Total Protein 8.3 H Albumin 3.5 Globulin 4.8 H Albumin/Globulin Ratio 0.7 L Radiography Diagnostic Testing: Clinical Impression(s) from Imaging Studies Abdomen/Pelvis CT 03/03/21 12:33 IMPRESSION: Status post anterior and posterior fusion at the L4-L5 and L5-S1 level with postoperative changes in the pelvis as described. No acute abnormality is seen. Electronically Signed: Lonny Olivier MD at 13:31 EST , Service support , Discharge Plan Dx/Rx/DC Orders Clinical Impression: Intractable back pain, Leukocytosis Disposition Disposition: Acute Care Hospital [facility]
[2021-03-03 12:42] LABS: Erythrocyte Sedimentation Rate 22 mm/hr (0-20)
[2021-03-03 12:46] LABS: Absolute Lymphocyte Count 1.39 X10^3/uL (0.83-4.51); Absolute Neutrophil Count 11.7 X10^3/uL (2.0-7.7); Basophil# 0.04 X10^3/uL; Basophil% 0.3 % (0-1); Eosinophil# 0.04 X10^3/uL; Eosinophils% 0.3 % (0-5); Hematocrit 40.5 % (40-54); Hemoglobin 13.6 g/dL (13.0-16.5); Lymphocyte # 1.39 X10^3/ul (0.83-4.51); Lymphocyte % 9.9 % (19-41); Mean Corp Hgb Conc 33.6 g/dL (32-36); Mean Corpuscular Hgb 31.1 pg (27.0-32.0); Mean Corpuscular Volume 92.5 fL (80-94); Mean Platelet Vol. 8.7 fl (6.2-12.0); Monocyte% 5.7 % (0-10); NRBC Flagged by Analyzer 0 % (0-5); Neutrophil # 11.66 X10^3/uL (2.7-7.7); Neutrophil % 83.3 % (47-70); POSITIVE COUNT YES; RBC Distribution Width CV 12.1 % (11.6-14.6); RBC Distribution Width SD 41.9 fl (35.1-43.9); Red Blood Count 4.38 M/mm3 (4.6-6.2)
[2021-03-03 12:49] LABS: Differential Indicated SCAN CRITERIA MET; Platelet Count 821 K/mm3 (150-450)
[2021-03-03 12:53] LABS: ALB/GLOB Ratio 0.7 RATIO (0.9-2.4); AST(SGOT) 9 U/L (15-37); Alanine Aminotransfer ALT/SGPT 14 U/L (16-61); Albumin, Serum 3.5 g/dL (3.2-5.0); Alkaline Phosphatase 119 U/L (45-117); Anion Gap 7 (5-15); BUN 25 mg/dL (7-18); BUN/Creat Ratio 16.3 RATIO (10-20); Calcium,Total 9.7 mg/dL (8.5-10.1); Chloride 102 mmol/L (98-107); Creatinine, Serum 1.53 mg/dL (0.70-1.30); EST Glomerular Filtration Rate 50 mL/min (>60); Est Glom Filt Rate - Afr Amer 60 mL/min (>60); Estimated Creatinine Clearance 53.68 ml/min; Globulin 4.8 g/dL (2.2-4.2); Glucose 97 mg/dL (74-106); Potassium 4.3 mmol/L (3.5-5.1); Protein, Total 8.3 g/dL (6.4-8.2); Sodium Level 135 mmol/L (136-145)
[2021-03-03 13:14] LABS: Platelet Estimate MKD INC (ADEQ)
[2021-03-03] MEDS: Morphine 4 MG/ML Syringe IV ×4 (13:26→19:04)
[2021-03-03 15:01] VITALS: BP 134/69; PULSE 84; RESP 16; TEMP 36.8; O2SAT 97
--- NOTE | 2021-03-03 15:25 | ED.RN ---
MORPHINE GIVEN AT 1525, UNABLE TO DOCUMENT
--- NOTE | 2021-03-03 15:36 | HP.PCM_ITS ---
Documented by User: HARSHA Wang 03/03/21 16:01 HPI - General General Date of Admission: 03/03/21 Date of Service: 03/03/21 Chief Complaint: intractable back pain HPI Narrative UMESH BAUER, is a 60 M who presents with intractable back pain. Patient underwent a L4-L5 lumbar fusion with Dr. Jorge on 02/14/2021. Patient reports that since being discharged home he has continued to have intense of back pain and has not been able to sleep for more than 1 to 2 hours and has had little to no appetite. Patient reports the pain is sharp and shooting through his right back and around to the front and down through his pubis/groin. Patient does report resolution of radicular pain down right leg that was present prior to surgery. Patient had been on Dilaudid, Valium, tramadol and Lyrica outpatient with no improvement of symptoms. [facility] Medical History Alcohol use Arthritis Back pain Former smoker Gastric reflux History of anal fissures History of pain when walking History of stress test History of trigger finger History of unsteady gait Leg cramps Low iron Marijuana use Migraine headache Wears glasses Home Medications oxaprozin 600 mg tablet 600 mg PO QHS 11/19/19 [History Last Taken 03/01/21] pregabalin 75 mg capsule 150 mg PO QHS 11/19/19 [History Last Taken 03/01/21] tramadol 50 mg tablet 50 mg PO QHS 11/19/19 [History Last Taken 03/01/21] testosterone cypionate 200 mg/mL intramuscular oil 200 mg IM .Q2WEEK ml 01/30/21 [History Last Taken 2 Weeks Ago ~02/17/21] vitamin B complex 1 tab PO DAILY 01/30/21 [History Last Taken 03/01/21] magnesium 250 mg PO QHS 01/31/21 [History Last Taken 03/01/21] diazepam 5 mg tablet 5 mg PO TID PRN #30 tab 02/19/21 [Rx Last Taken 03/01/21] hydromorphone 4 mg tablet 4 mg PO Q4H PRN 10 Days #60 tab 02/22/21 [Rx Last Taken 03/03/21] pantoprazole 40 mg PO QHS 03/03/21 [History Last Taken 03/01/21] Allergy/AdvReac Type Severity Reaction Status Date / Time shellfish derived Allergy Swelling Verified 02/22/21 10:33 surgical tape Allergy Rash Uncoded 02/14/21 08:21 Family History Mother Lung cancer Father Dementia Surgical History H/O left knee surgery h/o lumbar spine surgery Hx of colonoscopy Hx of hemorrhoidectomy Social History Smoking Status: Former smoker alcohol intake: current alcohol intake frequency: holidays/special occasions only what type of physical activity do you participate in: weight training ROS Constitutional Constitutional: Reports chills, excessive sweating, malaise and poor appetite; Denies anorexia, fatigue, fever(s) or weakness Cardiovascular Cardiovascular: Denies chest pain, edema, palpitations or syncope Respiratory/Chest Respiratory/Chest: Denies cough, shortness of breath at rest, shortness of breath with exertion or wheezing Gastrointestinal Gastrointestinal: Denies abdominal pain, constipation, diarrhea, nausea or vomiting Genitourinary Genitourinary: Denies dysuria Musculoskeletal Musculoskeletal: Reports back pain, limited range of motion and other Details: Pain radiates from back into pubis/groin Integumentary Integumentary: Reports wounds; Denies dry skin Neurologic Neurologic: Denies abnormal gait, abnormal speech, confusion, dizziness, focal weakness, numbness, radicular pain or tingling Psychiatric Psychiatric: Denies anxiety or depression Endocrine Endocrinology: Denies change in body appearance Hematologic/Lymphatic Hematologic/Lymphatic: Denies anemia, easy bleeding or easy bruising Vital Signs Vital Signs Vital Signs: 03/03/21 11:37 03/03/21 15:01 Temperature 97.3 F L 98.2 F Temperature Source Oral Oral Pulse Rate 82 84 Respiratory Rate 16 16 Blood Pressure 144/91 H 134/69 H Blood Pressure Mean 108 90 Pulse Ox 100 97 Oxygen Delivery Method Room Air Room Air Weight Weight: 234 lb 5.622 oz Body Mass Index (BMI) 33.6 Physical Exam Const alert and oriented x3 General Appearance: cooperative HEENT normocephalic and head/scalp atraumatic Eyes conjunctivae normal and no scleral icterus Neck supple General: trachea midline Resp normal respiratory effort, normal air movement and clear to auscultation bilaterally Cardio regular rate, regular rhythm, S1 normal heart sound, S2 normal heart sound and peripheral pulses 2+ throughout GI normal to inspection, nondistended, normoactive bowel sounds and soft to palpation GI Narrative: Mild tenderness with palpation to left lower quadrant surgical incision Palpation: tender Extremity normal capillary refill and no clubbing, cyanosis or edema General Extremity: no tenderness to palpation of joints or extremities Skin General Skin Exam: turgor normal Lesions: no lesions Rashes: no rashes Wounds: wounds noted Wound Narrative: Surgical incision noted to left lower quadrant and midline back, scabbed. [place] to midline back intact. No redness, swelling, warmth noted to either surgical incision. Neuro oriented x3, moves all extremities, no focal motor deficits and no sensory deficits noted Motor Exam: Negative for general weakness Psych cooperative Psych Narrative: Patient appears uncomfortable Activity / Motor Behavior: restless Thought Process: normal thought process Thought Content: normal thought content Results Lab / Micro Data Result Diagrams: 03/03/21 11:55 03/03/21 11:55 Labs: Laboratory Results - last 24 hr 03/03/21 11:55: WBC 14.0 H, RBC 4.38 L, Hgb 13.6, Hct 40.5, MCV 92.5, MCH 31.1, MCHC 33.6, RDW Std Deviation 41.9, RDW Coeff of Shamika 12.1, Plt Count 821 H*, MPV 8.7, Immature Gran % (Auto) 0.500, Neut % (Auto) 83.3 H, Lymph % (Auto) 9.9 L, M daniela % (Auto) 5.7, Eos % (Auto) 0.3, Baso % (Auto) 0.3, Absolute Neuts (auto) 11.7 H, Absolute Lymphs (auto) 1.39, Nucleated RBC % 0, Diff Path Review May foll, Platelet Estimate [employer] INC, ESR 22 H 03/03/21 11:55: Sodium 135 L, Potassium 4.3, Chloride 102, Carbon Dioxide 26.0, Anion Gap 7, BUN 25 H, Creatinine 1.53 H, Estim Creat Clear Calc 53.68, Est GFR (MDRD) Af Amer 60, Est GFR (MDRD) Non-Af 50 L, BUN/Creatinine Ratio 16.3, Glucose 97, Calcium 9.7, Total Bilirubin 0.60, AST 9 L, ALT 14 L, Alkaline Phosphatase 119 H, C-React Prot Ext Range 63.90 H, Total Protein 8.3 H, Albumin 3.5, Globulin 4.8 H, Albumin/Globulin Ratio 0.7 L 03/03/21 14:44: Procalcitonin 0.10 H Radiology Impression Abdomen/Pelvis CT 03/03/21 12:33 IMPRESSION: Status post anterior and posterior fusion at the L4-L5 and L5-S1 level with postoperative changes in the pelvis as described. No acute abnormality is seen. Electronically Signed: Lonny Olivier MD at 13:31 EST , Service support , Assessment & Plan Assessment/Plan (1) Intractable back pain: (2) Leukocytosis: QUALIFIERS: Leukocytosis type: unspecified Qualified Code(s): D72.829 - Elevated white blood cell count, unspecified (3) Thrombocytosis: (4) S/P lumbar fusion: PLAN: 1. Intractable back pain status post lumbar fusion -Admit to [facility] -Patient was sent from Dr. Jorge's office, will follow -Lumbar spine MRI with and without contrast ordered -Lumbar spine CT negative for acute findings -Graduated pain management regimen ordered including Tylenol, OxyIR, morphine. -Will consider a course of steroids if lumbar MRI negative. 2. Leukocytosis -Concern for possible abscess, will obtain MRI. No acute findings noted on lumbar CT -CBC ordered daily -Blood cultures x2 ordered -CRP elevated at 63.9. ESR, procalcitonin mildly elevated at 2.2 and 0.10 respectively -Urinalysis ordered -Patient is not tachycardic or tachypneic and has a stable blood pressure so we will hold off on antibiotics pending lumbar spine MRI. 3. Thrombocytosis -Likely reactive. Patient's platelet count on 02/17/2021 was 242, currently 821 -CBC ordered daily 4. LIZA -Likely due to dehydration as patient has said that he has not been able to eat or drink much due to pain -Normal saline 100 mL/h ordered -BMP daily DVT prophylaxis-SCDs, no pharmacological prophylaxis at this time This patient was seen by HARSHA Wang under the supervision of Dr. George. Documented by User: Dr. Celestine George, 03/03/21 19:28 HPI - General General Date of Admission: 03/03/21 [facility] Medical History Alcohol use Arthritis Back pain Former smoker Gastric reflux History of anal fissures History of pain when walking History of stress test History of trigger finger History of unsteady gait Leg cramps Low iron Marijuana use Migraine headache Wears glasses Home Medications oxaprozin 600 mg tablet 600 mg PO QHS 11/19/19 [History Last Taken 03/01/21] pregabalin 75 mg capsule 150 mg PO QHS 11/19/19 [History Last Taken 03/01/21] tramadol 50 mg tablet 50 mg PO QHS 11/19/19 [History Last Taken 03/01/21] testosterone cypionate 200 mg/mL intramuscular oil 200 mg IM .Q2WEEK ml 01/30/21 [History Last Taken 2 Weeks Ago ~02/17/21] vitamin B complex 1 tab PO DAILY 01/30/21 [History Last Taken 03/01/21] magnesium 250 mg PO QHS 01/31/21 [History Last Taken 03/01/21] diazepam 5 mg tablet 5 mg PO TID PRN #30 tab 02/19/21 [Rx Last Taken 03/01/21] hydromorphone 4 mg tablet 4 mg PO Q4H PRN 10 Days #60 tab 02/22/21 [Rx Last Taken 03/03/21] pantoprazole 40 mg PO QHS 03/03/21 [History Last Taken 03/01/21] Allergy/AdvReac Type Severity Reaction Status Date / Time shellfish derived Allergy Swelling Verified 02/22/21 10:33 surgical tape Allergy Rash Uncoded 02/14/21 08:21 Family History Mother Lung cancer Father Dementia Surgical History H/O left knee surgery h/o lumbar spine surgery Hx of colonoscopy Hx of hemorrhoidectomy Social History Smoking Status: Former smoker alcohol intake: current alcohol intake frequency: holidays/special occasions only what type of physical activity do you participate in: weight training Results Lab / Micro Data Result Diagrams: 03/03/21 11:55 03/03/21 11:55 Charges/Coding Addendum Addendum: Patient was seen and examined independently of Etta Pérez, he came to the ER today with complaints of severe low back pain with radiation into the lower abdomen. Patient had undergone a lumbar fusion approximately 2 weeks ago, he denies any radicular pain however presently. On examination he appeared in good health and spirits. Vital signs as documented. Skin warm and dry and without overt rashes. Neck without JVD, neck was supple, trachea midline, thyroid was normal. Lungs clear bilaterally, normal air movement was noted. Heart exam notable for regular rhythm, normal sounds and absence of murmurs, rubs or gallops. Abdomen unremarkable and without evidence of organomegaly, masses, or abdominal aortic enlargement. Bowel sounds are present, abdomen is not distended. Extremities nonedematous, no cyanosis was noted, no clubbing was noted. Neuro: Cranial nerves II through XII are grossly intact, no focal motor deficits were noted, sensation to light touch and pinp carolyn intact, motor exam 5/5 throughout. Psych: Patient is alert and oriented x3, he does not appear anxious or depressed, he does not appear agitated. Work-up in the emergency room included a CT of the lumbar spine which did not show any evidence of abscess or acute process, patient's white blood cell count was increased at 14, his platelet count was increased at 821,000, creatinine was elevated at 1.53, BUN was 25, his sed rate was elevated at 22,, patient C- reactive protein was elevated at 63, alkaline phosphatase was elevated at 119, and the patient's procalcitonin was slightly elevated at 0.10. Patient will be placed in observation status on MedSurg 3, an MRI of the lumbar spine will be obtained, patient was placed on Ativan for presumed muscle spasm and will receive IV narcotics as needed. I will hold off placing the patient on any IV corticosteroids until the results of the MRI come back. I have reviewed Etta Pérez's history and physical including her medical assessment and plan of care and endorse it. Visit Charges OBSV E&M: 16011 Initial observation care L3
[2021-03-03 15:54] VITALS: BMI 32.3
[2021-03-03 15:57] VITALS: BP 145/72; PULSE 85; RESP 16; TEMP 36.7; O2SAT 94
[2021-03-03 16:03] LABS: Magnesium 2.3 mg/dL (1.6-2.6)
[2021-03-03] MEDS: 0.9% Normal Saline 1,000 ML 100 ML IV (16:41)
[2021-03-03] MEDS: 0.9% Saline Lock 10 ML Syringe IV (16:42)
--- NOTE | 2021-03-03 17:02 | PCS.PANDOC ---
PANDEMIC DOCUMENTATION INITIATED: Date: 11/28/2020 Time: 190
[2021-03-03] MEDS: Acetaminophen 325 MG Tablet 650 MG PO (17:55)
[2021-03-03] MEDS: oxyCODONE 5 MG Tablet 10 MG PO ×2 (17:55→21:52)
[2021-03-03] MEDS: LORazepam 1 MG Tablet 2 MG PO (18:09)
--- NOTE | 2021-03-03 19:25 | MRI_ITS ---
We are attempting to reach an attending provider to discuss findings. An addendum with communication details will be sent when the communication is complete. STUDY: MRI LUMBAR SPINE WITH AND WITHOUT CONTRAST REASON FOR EXAM: Male, 60 years old. back pain TECHNIQUE: Standardized fat and water weighted pulse sequences were obtained in the sagittal and axial planes. IV 19ml Dotarem was administered for the contrast portion of the examination. COMPARISON: 05/31/2020 FINDINGS: No evidence for acute fracture or subluxation. There is low signal intensity seen within the L4 and L5 vertebral bodies on T1 which become increased signal intensity on T2 and STIR imaging sequences as well as enhances following contrast administration and may be consistent with acute osteomyelitis and discitis. There is also enhancement of the paravertebral soft tissues on the right consistent with phlegmonous changes There is also enhancing of the soft tissues within the anterior epidural space on the right mildly compressing the thecal sac which may be consistent with epidural empyema. T12-L1: Normal endplates. Normal disc height, hydration and morphology. Normal bilateral facet joints. Normal central canal and bilateral lateral recesses. Normal bilateral intervertebral neural foramina. Normal lumbar lordosis. There is no substantial scoliosis. Normal conus medullaris that terminates at T12-L1 L1-2: Normal endplates. Normal disc height, hydration and morphology. Normal bilateral facet joints. Normal central canal and bilateral lateral recesses. Normal bilateral intervertebral neural foramina. L2-3: Normal endplates. Normal disc height, hydration and morphology. Normal bilateral facet joints. Normal central canal and bilateral lateral recesses. Normal bilateral intervertebral neural foramina. L3-4: Normal endplates. Normal disc height, hydration and minimal annular bulge.. Mild facet arthropathy.. Normal central canal and bilateral lateral recesses. Mild to moderate bilateral neuroforaminal encroachment L4-5: Postsurgical change status post posterior and anterior fusion with disc spacer placement. Minimal bulging disc/osteophyte complex. Facet arthropathy and thickening of ligamenta flava slightly more pronounced on the left. Mild narrowing of the central canal Moderate bilateral recess stenosis and severe neuroforaminal encroachment L5-S1: Status post posterior and anterior fusion with disc spacer placement.. Minimal bulging of the endplates. Facet arthropathy. Normal bilateral facet joints. Minor narrowing of the central canal. Normal bilateral lateral recesses. Mild to moderate bilateral neuroforaminal stenosis. Normal visualized sacral ala. Normal visualized paraspinous soft tissue structures. MRI/Spine Lumbar W/WO Contrast IMPRESSION: Postsurgical changes at L4-5 and L5-S1 There are changes suggestive of acute osteomyelitis and discitis at L4-5 with phlegmonous changes in the right paravertebral soft tissues and epidural empyema posterior to L5 producing compression upon the thecal sac Electronically Signed: Gaurav Zhong MD at 20:41 EST , Service support ,
--- NOTE | 2021-03-03 21:12 | PCM.HOSP.N ---
Hospitalist Note Notified of MRI of lumbar spine with postsurgical changes at L4-5 and L5-S1 with changes concerning for acute osteomyelitis and discitis at L4-5 with phlegmonous change in the right paravertebral soft tissues and epidural empyema posterior to L5 producing compression against the thecal sac. Will immediately add IV Vanco and Zosyn and notify neurosurgery Dr. Jorge who performed the surgery and is consulted of these findings.
[2021-03-03 21:34] VITALS: BP 144/71; PULSE 78; RESP 18; TEMP 37.1; O2SAT 96
[2021-03-03] MEDS: Temazepam 15 MG Capsule PO (21:52)
[2021-03-03] MEDS: Pantoprazole Sodium 40 MG Tablet PO (21:52)
[2021-03-03] MEDS: Ibuprofen 400 MG Tablet PO (21:52)
--- NOTE | 2021-03-03 22:29 | PCM.RX.CS ---
Consult Pharmacy has been consulted to manage selected antiobiotic: Vancomycin Type of Consult: New start Labs: Sodium 135 mmol/L (136-145) L 03/03/21 11:55 Potassium 4.3 mmol/L (3.5-5.1) 03/03/21 11:55 Chloride 102 mmol/L (98-107) 03/03/21 11:55 Carbon Dioxide 26.0 mmol/L (21.0-32.0) 03/03/21 11:55 Anion Gap 7 (5-15) 03/03/21 11:55 BUN 25 mg/dL (7-18) H 03/03/21 11:55 Creatinine 1.53 mg/dL (0.70-1.30) H 03/03/21 11:55 Est GFR (MDRD) Af Amer 60 mL/min (>60) 03/03/21 11:55 Est GFR (MDRD) Non-Af 50 mL/min (>60) L 03/03/21 11:55 BUN/Creatinine Ratio 16.3 RATIO (10-20) 03/03/21 11:55 Glucose 97 mg/dL (74-106) 03/03/21 11:55 Weight used for dosin.3 kg Estimated Creatinine Clearance: 62.3 Goal Trough: 15-20 mcg/mL Pharmacy Plan for Drug Dosing: Pharmacy Service will continue to monitor and adjust dosing as required. Medications Vancomycin HCl 2,000 mg/ (Sodium Chloride) 540 mls @ 250 mls/hr IV X1 ONE Stop: 03/03/21 23:39 Last Admin: 03/03/21 21:52 Dose: 250 mls/hr Documented by: Vancomycin HCl 1,250 mg/ (Sodium Chloride) 275 mls @ 167 mls/hr IV Q12H [facility] Follow-Up Labs: Trough Vancomycin Labs to be done on [date and time ordered]: 03/05 @ 4571
--- NOTE | 2021-03-03 22:48 | NURSING ---
attempted to call Dr Jorge for alert of consult twice tonight. left a voicemail asking to call [facility] back. no pt information was given over voicemail
--- NOTE | 2021-03-03 23:12 | NURSING ---
according to Dr Santiago, Dr Curry had alerted Dr Jorge about consult
[2021-03-04] VITALS (14 sets, daily range): BP systolic 116–160; BP diastolic 65–88; PULSE 65–83; RESP 16–18; TEMP 35.7–37.1; O2SAT 93–99; BMI 32.3
[2021-03-04 00:22] LABS: Bacteria 0 SEEN /hpf (None Seen); Mucous, Urine 0 SEEN /hpf (<or=2+); Red Blood Cells-Urine 0 SEEN /hpf (0-5); White Blood Cells 0 SEEN /hpf (0-5)
[2021-03-04] MEDS: Morphine 4 MG/ML Syringe IV ×3 (00:31→21:12)
[2021-03-04] MEDS: LORazepam 1 MG Tablet 2 MG PO ×2 (03:57→17:52)
[2021-03-04] MEDS: Ibuprofen 400 MG Tablet PO (03:57)
[2021-03-04] MEDS: 0.9% Normal Saline 1,000 ML 100 ML IV ×2 (04:08→21:16)
--- NOTE | 2021-03-04 05:00 | EKG12_ITS ---
Test Reason : PRE OP Blood Pressure : / mmHG Vent. Rate : 065 BPM Atrial Rate : 065 BPM P-R Int : 178 ms QRS Dur : 090 ms QT Int : 394 ms P-R-T Axes : 049 017 038 degrees QTc Int : 409 ms Normal sinus rhythm Normal ECG When compared with ECG of 02-FEB-2021 12:56, No significant change was found Confirmed by MONI RINCON, ORLIN ([id number]), makeup editor LANDON KERR ([id number]) on 03/07/2021 1:58:55 PM Referred By: KIMMIE Confirmed By:ORLIN MONTENEGRO MD
[2021-03-04 08:24] LABS: Absolute Neutrophil Count 6.3 X10^3/uL (2.0-7.7); Basophil# 0.05 X10^3/uL; Basophil% 0.5 % (0-1); Eosinophil# 0.14 X10^3/uL; Eosinophils% 1.5 % (0-5); Hematocrit 35.6 % (40-54); Hemoglobin 11.9 g/dL (13.0-16.5); Lymphocyte % 22.2 % (19-41); Mean Corp Hgb Conc 33.4 g/dL (32-36); Mean Corpuscular Hgb 31.1 pg (27.0-32.0); Mean Platelet Vol. 8.6 fl (6.2-12.0); Monocyte# 0.83 X10^3/uL; Monocyte% 8.8 % (0-10); NRBC Flagged by Analyzer 0 % (0-5); Neutrophil # 6.34 X10^3/uL (2.7-7.7); Neutrophil % 66.8 % (47-70); Platelet Count 620 K/mm3 (150-450); RBC Distribution Width CV 12.4 % (11.6-14.6); RBC Distribution Width SD 42.4 fl (35.1-43.9); Red Blood Count 3.83 M/mm3 (4.6-6.2); White Blood Count 9.5 K/mm3 (4.4-11.0)
[2021-03-04 08:35] LABS: Anion Gap 5 (5-15); BUN 28 mg/dL (7-18); BUN/Creat Ratio 20.1 RATIO (10-20); Calcium,Total 8.7 mg/dL (8.5-10.1); Chloride 104 mmol/L (98-107); Creatinine, Serum 1.39 mg/dL (0.70-1.30); EST Glomerular Filtration Rate 56 mL/min (>60); Est Glom Filt Rate - Afr Amer 67 mL/min (>60); Estimated Creatinine Clearance 59.08 ml/min; Glucose 80 mg/dL (74-106); Potassium 4.5 mmol/L (3.5-5.1); Sodium Level 136 mmol/L (136-145)
[2021-03-04] MEDS: THROMBIN (RECOMBINANT) 20,000 UNIT VIAL 20000 UNIT TOPICAL (10:32)
--- NOTE | 2021-03-04 11:02 | PCM.PN.HOSP ---
Documented by User: Dana Pérez NP-C 03/04/21 11:09 Subjective Subjective Patient seen and examined. Patient being taken to surgery directly following my assessment. Patient states that his pain is currently under control. Objective Data Objective Data Vital Signs: Vital Signs Temp Pulse Resp BP Pulse Ox 96.9 F L 76 16 125/72 H 96 03/04/21 08:40 03/04/21 08:40 03/04/21 08:40 03/04/21 08:40 03/04/21 08:40 Oxygen Delivery Method Room Air Weight: 225 lb 8.526 oz Body Mass Index (BMI) 32.3 Intake & Output: Intake and Output for Last 24 Hours 03/02/21 03/03/21 03/04/21 23:59 23:59 23:59 Intake Total 1021.67 / 1021.67 584.38 / 584.38 Balance 1021.67 / 1021.67 584.38 / 584.38 Medical Nutrition Assessment Dietitian: Malnutrition Criteria Met Start: 03/04/21 09:19 Freq: Status: Active Protocol: Document 03/04/21 09:40 AG (Rec: 03/04/21 09:40 AG [id number]) Nutrition Malnutrition Evidence of Malnutrition Exists Yes Malnutrition (severe): Acute Illness/Injury Evidenced By Suboptimal Energy Intake ( Severe),Weight Loss (Severe) Clinical Problem Acute Disease or Injury Related Malnutrition Etiology severe, acute malnutrition r/t inadequate energy intake w/ increased energy needs after surgery Signs/Symptoms as evidenced by unintentional wt loss of 22.7#/9% <1 month, estimated PO intake meeting < 50% of estimated nutritional needs <1 month Status Active Problem Recommendation Dietitian Recommendations/Changes regular diet when medically indicated; ensure enlive 120mL 4x/day w/ medpass when PO diet resumed. Lab / Micro Data Result Diagrams: 03/04/21 06:39 03/04/21 06:39 Labs: Laboratory Results - last 24 hr 03/03/21 11:55: WBC 14.0 H, RBC 4.38 L, Hgb 13.6, Hct 40.5, MCV 92.5, MCH 31.1, MCHC 33.6, RDW Std Deviation 41.9, RDW Coeff of Shamika 12.1, Plt Count 821 H*, MPV 8.7, Immature Gran % (Auto) 0.500, Neut % (Auto) 83.3 H, Lymph % (Auto) 9.9 L, Petroleum % (Auto) 5.7, Eos % (Auto) 0.3, Baso % (Auto) 0.3, Absolute Neuts (auto) 11.7 H, Absolute Lymphs (auto) 1.39, Nucleated RBC % 0, Diff Path Review August, Platelet Estimate MKD INC, ESR 22 H 03/03/21 11:55: Sodium 135 L, Potassium 4.3, Chloride 102, Carbon Dioxide 26.0, Anion Gap 7, BUN 25 H, Creatinine 1.53 H, Estim Creat Clear Calc 53.68, Est GFR (MDRD) Af Amer 60, Est GFR (MDRD) Non-Af 50 L, BUN/Creatinine Ratio 16.3, Glucose 97, Calcium 9.7, Total Bilirubin 0.60, AST 9 L, ALT 14 L, Alkaline Phosphatase 119 H, C-React Prot Ext Range 63.90 H, Total Protein 8.3 H, Albumin 3.5, Globulin 4.8 H, Albumin/Globulin Ratio 0.7 L 03/03/21 11:55: Magnesium 2.3 03/03/21 14:44: Procalcitonin 0.10 H 03/04/21 06:39: WBC 9.5, RBC 3.83 L, Hgb 11.9 L, Hct 35.6 L, MCV 93.0, MCH 31.1, MCHC 33.4, RDW Std Deviation 42.4, RDW Coeff of Shamika 12.4, Plt Count 620 H, MPV 8.6, Immature Gran % (Auto) 0.200, Neut % (Auto) 66.8, Lymph % (Auto) 22.2, [place] % (Auto) 8.8, Eos % (Auto) 1.5, Baso % (Auto) 0.5, Absolute Neuts (auto) 6.3, Absolute Lymphs (auto) 2.10, Nucleated RBC % 0 03/04/21 06:39: Sodium 136, Potassium 4.5, Chloride 104, Carbon Dioxide 27.0, Anion Gap 5, BUN 28 H, Creatinine 1.39 H, Estim Creat Clear Calc 59.08, Est GFR (MDRD) Af Amer 67, Est GFR (MDRD) Non-Af 56 L, BUN/Creatinine Ratio 20.1 H, Glucose 80, Calcium 8.7 Micro: Microbiology 03/04/21 09:15 Nasal Secretion SARS-CoV-2 Antigen (Rapid) - Final Radiography Diagnostic Testing: Radiology Impression Abdomen/Pelvis CT 03/03/21 12:33 IMPRESSION: Status post anterior and posterior fusion at the L4-L5 and L5-S1 level with postoperative changes in the pelvis as described. No acute abnormality is seen. Electronically Signed: Lonny Olivier MD at 13:31 EST , Service support , Lumbar Spine MRI 03/03/21 19:25 IMPRESSION: Postsurgical changes at L4-5 and L5-S1 There are changes suggestive of acute osteomyelitis and discitis at L4-5 with phlegmonous changes in the right paravertebral soft tissues and epidural empyema posterior to L5 producing compression upon the thecal sac Electronically Signed: Gaurav Zhong MD at 20:41 EST , Service support , ADDENDUM: 03/03/212055 IMPRESSION: Postsurgical changes at L4-5 and L5-S1 There are changes suggestive of acute osteomyelitis and discitis at L4-5 with phlegmonous changes in the right paravertebral soft tissues and epidural empyema posterior to L5 producing compression upon the thecal sac N.B. : The above Results were Read Back by Gaurav Zhong MD to Rishi Mishra RN, and understanding confirmed on 03/03/2021 20:49:55 (ET). Electronically Signed: Gaurav Zhong MD at 20:41 EST , Service support , Physical Exam Const alert and oriented x3 General Appearance: cooperative HEENT normocephalic and head/scalp atraumatic Eyes conjunctivae normal and no scleral icterus Neck supple General: trachea midline Resp normal respiratory effort, normal air movement and clear to auscultation bilaterally Cardio regular rate, regular rhythm, S1 normal heart sound, S2 normal heart sound and peripheral pulses 2+ throughout GI normal to inspection, nondistended, normoactive bowel sounds and soft to palpation Palpation: tender Extremity normal capillary refill and no clubbing, cyanosis or edema General Extremity: no tenderness to palpation of joints or extremities Skin General Skin Exam: turgor normal Lesions: no lesions Rashes: no rashes Wounds: wounds noted Neuro oriented x3, moves all extremities, no focal motor deficits and no sensory deficits noted Motor Exam: Negative for general weakness Psych cooperative and affect normal Thought Process: normal thought process Thought Content: normal thought content Assessment & Plan Assessment/Plan (1) Intractable back pain: (2) Leukocytosis: QUALIFIERS: Leukocytosis type: unspecified Qualified Code(s): D72.829 - Elevated white blood cell count, unspecified (3) Thrombocytosis: (4) S/P lumbar fusion: PLAN: 1. Intractable back pain status post lumbar fusion -Patient was sent from Dr. Jorge's office, Dr. Elizabeth taking patient back to surgery this a.m. -Lumbar spine MRI with and without contrast demonstrates postsurgical changes at L4 and L5 L5 and S1 along with concerns for acute osteomyelitis and discitis at L4-L5 with phlegmonous change in the right paravertebral soft tissues and epidural empyema posterior to L5 producing compression and thecal sac. -Graduated pain management regimen ordered including Tylenol, OxyIR, morphine. -Patient initiated on vancomycin and Zosyn overnight 2. Leukocytosis -See above lumbar spine MRI findings -CBC ordered daily -Patient initiated on vancomycin and Zosyn overnight due to MRI findings -White blood cell count improved, 9.5 -We will continue antibiotics as ordered pending surgical findings 3. Thrombocytosis -Likely reactive. Improved down to 620 today -CBC ordered daily 4. LIZA -Improved following IV fluid hydration -Normal saline 100 mL/h continue -BMP daily DVT prophylaxis-SCDs, no pharmacological prophylaxis at this time This patient was seen by HARSHA Wang under the supervision of Dr. George. Documented by User: Dr. Celestine George, DO 03/04/21 15:42 Objective Data Lab / Micro Data Result Diagrams: 03/04/21 06:39 03/04/21 06:39 Charges/Coding Addendum Addendum: Patient was seen and examined today independently of Etta Pérez, he was taken to surgery today and the incision site was opened up, drainage of purulent fluid was removed, hardware was removed also. Patient's bone graft was also removed. Patient's PCR for MRSA was negative PCR was negative also for staph aureus. On examination he appeared in good health and spirits. Vital signs as documented. Skin warm and dry and without overt rashes. Neck without JVD, neck was supple, trachea midline, thyroid was normal. Lungs clear bilaterally, normal air movement was noted. Heart exam notable for regular rhythm, normal sounds and absence of murmurs, rubs or gallops. Abdomen unremarkable and without evidence of organomegaly, masses, or abdominal aortic enlargement. Bowel sounds are present, abdomen is not distended. Extremities nonedematous, no cyanosis was noted, no clubbing was noted. Neuro: Cranial nerves II through XII are grossly intact, no focal motor deficits were noted, sensation to light touch and pinprick intact, motor exam 5/5 throughout. Psych: Patient is alert and oriented x3, he does not appear anxious or depressed, he does not appear agitated. I have reviewed Etta Pérez's progress note including her medical assessment and plan of care and endorse it. Visit Charges Inpatient E&M: 60169 Subs Hosp L2
--- NOTE | 2021-03-04 12:09 | OP.PCM_ITS ---
Report of Operation Date of Procedure: 03/04/21 Description of Surgical Findings:: Preoperative diagnosis: Epidural abscess and deep infection lumbar spine Postoperative diagnosis: The same Procedure: Incision and drainage and thorough irrigation Surgeon: Dr. Jorge assistant community director: Josefa CATALAN Anesthesia: General endotracheal anesthesia administered by Dr. Workman Estimated blood loss: Less than 50 cc Drains: Medium Hemovac Complications: None Procedure: Patient was taken to the OR where he was placed under general endotracheal anesthesia. A Deleon catheter was inserted. He was then placed in prone position on the Darwin frame. After proper positioning with care to protect his bony prominences his genitalia his brachial plexus bilaterally and his ulnar nerves of both elbows the back was prepped and draped standard fashion I then made the incision directly over the old incision. I opened the subcutaneous tissues and removed all the old Vicryl sutures that we could find. In this fashion we opened the deep tissues and found infected fluid. Cultures were taken. These were both anaerobic and aerobic and cultures for MRSA. We then put the super slide retractors in place. We then removed all the bone graft material including the DBM that had been put in the gutters. The hardware likewise was removed. After this thorough irrigation was carried out with pulse lavage system. I was able to put 6 L of fluid through the wound. The laminectomy sites were observed and protected. The epidural abscesses noted out were from the laminar side. We then put a medium Hemovac drain in place. I closed the lumbar fascia using [id number] suture with #1 Vicryl followed by closure of subcutaneous tissues in 2 layers 1 with 0 Vicryl and the other with 2-0 Vicryl. The skin was approximated using skin clips. Sterile dressings were then applied. Patient was then recovered in the OR moved to his hospital bed and taken to recovery in satisfactory condition. [facility] This is Dr. Jorge dictating.
[2021-03-04 13:43] LABS: M R Staph aureus DNA By PCR Negative (Negative); Probe Check PASS; Specimen Processing Control PASS; Staph aureus DNA By PCR NEGATIVE (Negative)
--- NOTE | 2021-03-04 15:04 | CASEMGMT ---
CELINE GROSS assessment: Face to Face with patient for initial transition planning/care coordination assessment. CELINE GROSS introduced self and role at [facility], pt voices understanding and consents to assessment. Pt is lying in bed in no distress on room air. Pt is A/Ox4 and answers all questions appropriately. Pt's at bedside during assessment. Care providers, pharmacy, and demographics verified. Presentation: Pt had lumbar fusion w/ Luisito 2 weeks ago and still with constant back pain Admitting dx: Acute osteo, back pain PCP: [facility] Specialists: [facility] spine; BOLA Whyte Preferred Pharmacy: [facility] Insurance: [place] Prescription Benefit: [place] Living Will/HPOA: Pt has HPOA and is aware that they are not on file at [facility]. Pt's , Gato Boone, is HPOA. LNOK: Gato Boone, /HPOA Living Arrangements: Pt lives with in 1 story home and states no concerns at home. Pt is independent with ADL's. Transportation: Pt drives self and states no transportation concerns. DME/HHC: Pt has [facility] and states no need for any further DME. Pt states no hx of HHC or SNF, but was set up with OP therapy. Pt/ state no concerns with going home at time of discharge. Pt works mental health case manager. Pt does not smoke cigarettes or drink ETOH. Pt/ voice no further concerns/needs. CM to follow for any further discharge planning/needs. Advised pt/ to ask for CM if any further questions/concerns/needs arise, voice understanding. Pt Goal: Home Plan: [place] CELINE GROSS
[2021-03-04 15:58] LABS: Color, Urine Yellow (Yellow); Glucose, Dipstick Normal (Normal); Ketone-Dipstick Negative (Negative); Leukocyte Esterase-Dipstick Negative /ul (Negative); Nitrite-Dipstick Negative (Negative); Occult Blood-Urine Negative /ul (Negative); Protein-Dipstick 15 mg/dl (Negative); Specific Gravity, Urine 1.025 (1.002-1.030); Urine Bilirubin Dipstick Negative (Negative); Urine Clarity Sl. Cloudy (Clear); Urine Urobilinogen Normal (Normal)
[2021-03-04 16:17] LABS: Squamous Epithelial Cells - UA 0-5 SEEN /hpf (0-5)
[2021-03-04] MEDS: oxyCODONE 5 MG Tablet 10 MG PO ×2 (17:51→22:16)
[2021-03-04] MEDS: Ensure Surgery 237 ML LIQUID PO (17:51)
[2021-03-04] MEDS: Pantoprazole Sodium 40 MG Tablet PO (21:17)
[2021-03-05] MEDS: Morphine 4 MG/ML Syringe IV ×4 (00:23→23:14)
[2021-03-05] MEDS: oxyCODONE 5 MG Tablet 10 MG PO (02:18)
[2021-03-05] MEDS: LORazepam 1 MG Tablet 2 MG PO ×3 (02:20→18:13)
[2021-03-05 03:40] VITALS: BP 137/71; PULSE 76; RESP 16; TEMP 37; O2SAT 95
[2021-03-05 05:53] LABS: Absolute Neutrophil Count 7.5 X10^3/uL (2.0-7.7); Basophil# 0.02 X10^3/uL; Basophil% 0.2 % (0-1); Eosinophil# 0.01 X10^3/uL; Eosinophils% 0.1 % (0-5); Hematocrit 33.8 % (40-54); Hemoglobin 11.2 g/dL (13.0-16.5); Lymphocyte % 16.4 % (19-41); Mean Corp Hgb Conc 33.1 g/dL (32-36); Mean Corpuscular Hgb 29.8 pg (27.0-32.0); Mean Corpuscular Volume 89.9 fL (80-94); Mean Platelet Vol. 8.2 fl (6.2-12.0); Monocyte# 0.61 X10^3/uL; Monocyte% 6.3 % (0-10); NRBC Flagged by Analyzer 0 % (0-5); Neutrophil % 76.8 % (47-70); Platelet Count 630 K/mm3 (150-450); RBC Distribution Width CV 11.9 % (11.6-14.6); RBC Distribution Width SD 39.2 fl (35.1-43.9); Red Blood Count 3.76 M/mm3 (4.6-6.2); White Blood Count 9.8 K/mm3 (4.4-11.0)
[2021-03-05] MEDS: 0.9% Normal Saline 1,000 ML 100 ML IV ×2 (06:14→14:51)
[2021-03-05 06:15] LABS: Anion Gap 6 (5-15); BUN 22 mg/dL (7-18); BUN/Creat Ratio 16.1 RATIO (10-20); Calcium,Total 8.3 mg/dL (8.5-10.1); Chloride 106 mmol/L (98-107); Creatinine, Serum 1.37 mg/dL (0.70-1.30); EST Glomerular Filtration Rate 57 mL/min (>60); Est Glom Filt Rate - Afr Amer 68 mL/min (>60); Estimated Creatinine Clearance 59.95 ml/min; Glucose 114 mg/dL (74-106); Potassium 4.1 mmol/L (3.5-5.1); Sodium Level 137 mmol/L (136-145)
[2021-03-05 07:44] VITALS: O2SAT 95
[2021-03-05 07:58] VITALS: BP 141/78; PULSE 74; RESP 16; TEMP 36.6; O2SAT 95
--- NOTE | 2021-03-05 10:21 | PCM.PN.HOSP ---
Documented by User: Dana Pérez NP-C 03/05/21 10:36 Subjective Subjective Patient seen and examined. Patient states that his pain is improved. Discussed with patient need for PICC line and ongoing antibiotics after discussion with Dr. Craig about case. Patient voices understanding. Objective Data Objective Data Vital Signs: Vital Signs Temp Pulse Resp BP Pulse Ox 97.9 F 74 16 141/78 H 95 03/05/21 07:58 03/05/21 07:58 03/05/21 07:58 03/05/21 07:58 03/05/21 07:58 Oxygen Flow Rate (L/min) 2 Oxygen Delivery Method Room Air Weight: 225 lb 8.526 oz Body Mass Index (BMI) 32.3 Intake & Output: Intake and Output for Last 24 Hours 03/03/21 03/04/21 03/05/21 23:59 23:59 23:59 Intake Total 1021.67 / 1021.67 2234.38 / 2834.38 1546.67 / 1546.67 Output Total 575 / 995 930 / 930 Balance 1021.67 / 1021.67 1659.38 / 1839.38 616.67 / 616.67 Medical Nutrition Assessment Dietitian: Malnutrition Criteria Met Start: 03/04/21 09:19 Freq: Status: Active Protocol: Document 03/04/21 09:40 (Rec: 03/04/21 09:40 [id number]) Nutrition Malnutrition Evidence of Malnutrition Exists Yes Malnutrition (severe): Acute Illness/Injury Evidenced By Suboptimal Energy Intake ( Severe),Weight Loss (Severe) Clinical Problem Acute Disease or Injury Related Malnutrition Etiology severe, acute malnutrition r/t inadequate energy intake w/ increased energy needs after surgery Signs/Symptoms as evidenced by unintentional wt loss of 22.7#/9% <1 month, estimated PO intake meeting < 50% of estimated nutritional needs <1 month Status Active Problem Recommendation Dietitian Recommendations/Changes regular diet when medically indicated; ensure enlive 120mL 4x/day w/ medpass when PO diet resumed. Lab / Micro Data Result Diagrams: 03/05/21 05:25 03/05/21 05:25 Labs: Laboratory Results - last 24 hr 03/04/21 00:15: Urine Color Yellow, Urine Clarity Sl. Cloudy, Urine pH 5.0, Ur Specific [place] 1.025, Urine Protein 15 H, Urine Glucose (UA) Normal, Urine Ketones Negative, Urine Occult Blood Negative, Urine Nitrite Negative, Urine Bilirubin Negative, Urine Urobilinogen Normal, Ur Leukocyte Esterase Negative, Urine RBC 0 SEEN, Urine WBC 0 SEEN, Ur Squamous Epith Cells 0-5 SEEN, Urine Bacteria 0 SEEN, Urine Mucus 0 SEEN 03/04/21 11:05: S.aureus Protein A PCR NEGATIVE, MRSA (PCR) Negative 03/05/21 05:25: WBC 9.8, RBC 3.76 L, Hgb 11.2 L, Hct 33.8 L, MCV 89.9, MCH 29.8, MCHC 33.1, RDW Std Deviation 39.2, RDW Coeff of Shamika 11.9, Plt Count 630 H, MPV 8.2, Immature Gran % (Auto) 0.200, Neut % (Auto) 76.8 H, Lymph % (Auto) 16.4 L, [place] % (Auto) 6.3, Eos % (Auto) 0.1, Baso % (Auto) 0.2, Absolute Neuts (auto) 7.5, Absolute Lymphs (auto) 1.60, Nucleated RBC % 0 03/05/21 05:25: Sodium 137, Potassium 4.1, Chloride 106, Carbon Dioxide 25.0, Anion Gap 6, BUN 22 H, Creatinine 1.37 H, Estim Creat Clear Calc 59.95, Est GFR (MDRD) Af Amer 68, Est GFR (MDRD) Non-Af 57 L, BUN/Creatinine Ratio 16.1, Glucose 114 H, Calcium 8.3 L Micro: Microbiology 03/04/21 11:05 Incision/Surgical Site Gram Stain - Final 03/04/21 09:15 Nasal Secretion SARS-CoV-2 Antigen (Rapid) - Final Physical Exam Const alert and oriented x3 General Appearance: cooperative HEENT normocephalic and head/scalp atraumatic Eyes conjunctivae normal and no scleral icterus Neck supple General: trachea midline Resp normal respiratory effort, normal air movement and clear to auscultation bilaterally Cardio regular rate, regular rhythm, S1 normal heart sound, S2 normal heart sound and peripheral pulses 2+ throughout GI normal to inspection, nondistended, normoactive bowel sounds and soft to palpation Palpation: tender Extremity normal capillary refill and no clubbing, cyanosis or edema General Extremity: no tenderness to palpation of joints or extremities Skin General Skin Exam: turgor normal Lesions: no lesions Rashes: no rashes Wounds: wounds noted Neuro oriented x3, moves all extremities, no focal motor deficits and no sensory deficits noted Motor Exam: Negative for general weakness Psych cooperative and affect normal Activity / Motor Behavior: restless Thought Process: normal thought process Thought Content: normal thought content Assessment & Plan Assessment/Plan (1) Intractable back pain: (2) Leukocytosis: QUALIFIERS: Leukocytosis type: unspecified Qualified Code(s): D72.829 - Elevated white blood cell count, unspecified (3) Thrombocytosis: (4) S/P lumbar fusion: PLAN: 1. Intractable back pain status post lumbar fusion -Patient underwent surgery 03/04/[address] Jorge for patient was found to have a epidural abscess. Patient's bone graft and hardware was removed and irrigation was completed. Patient currently has a medium Hemovac drain in place. -Discussed case with Dr. Craig who feels that patient will need long-term outpatient antibiotics. PICC line ordered. -Lumbar spine MRI with and without contrast demonstrates postsurgical changes at L4 and L5 L5 and S1 along with concerns for acute osteomyelitis and discitis at L4-L5 with phlegmonous change in the right paravertebral soft tissues and epidural empyema posterior to L5 producing compression and thecal sac. -Graduated pain management regimen ordered including Tylenol, OxyIR, morphine. -Patient transitioned from Zosyn to cefepime, continue vancomycin. -Dr. Craig consulted -Patient had Deleon catheter inserted during surgery, will remove. Patient initiated on Flomax as patient had difficulty urinating following catheter removal during previous surgery. 2. Leukocytosis -Resolved -See above lumbar spine MRI findings -CBC ordered daily -White blood cell count improved, 9.8 -Continue cefepime and vancomycin 3. Thrombocytosis -Likely reactive. 630 today -CBC ordered daily 4. LIZA -Improved following IV fluid hydration -Normal saline 100 mL/h continue -BMP daily DVT prophylaxis-SCDs, no pharmacological prophylaxis at this time This patient was seen by Dana Pérez NP-C under the supervision of Dr. George. Documented by User: Dr. Celestine George, 03/05/21 11:59 Objective Data Lab / Micro Data Result Diagrams: 03/05/21 05:25 03/05/21 05:25 Charges/Coding Addendum Addendum: Patient was seen and examined independently of Etta Pérez today, I had a long talk with him concerning his surgery yesterday, patient was not aware that they took his hardware and bone graft out yesterday, he was upset to consider that he would have to have a repeat surgery due to this infection. His is on the phone and she understood his medical care. Patient's catheter will be taken out today, I placed him on Flomax 0.8 mg daily-evidently in the past he has had problems with urinating after a Deleon cath is removed. I talked with infectious diseases by phone today, patient will have a PICC line inserted and his antibiotics will be changed per ID. ID will see the patient tomorrow On examination he appeared in good health and spirits. Vital signs as documented. Skin warm and dry and without overt rashes. Neck without JVD, neck was supple, trachea midline, thyroid was normal. Lungs clear bilaterally, normal air movement was noted. Heart exam notable for regular rhythm, normal sounds and absence of murmurs, rubs or gallops. Abdomen unremarkable and without evidence of organomegaly, masses, or abdominal aortic enlargement. Bowel sounds are present, abdomen is not distended. Extremities nonedematous, no cyanosis was noted, no clubbing was noted. Neuro: Cranial nerves II through XII are grossly intact, no focal motor deficits were noted, sensation to light touch and pinprick intact, motor exam 5/5 throughout. Psych: Patient is alert and oriented x3, he does not appear anxious or depressed, he does not appear agitated. I have reviewed Nilesh Arechiga's progress note including her medical assessment and plan of care and endorse it. Visit Charges Inpatient E&M: 32566 Subs Hosp L2
[2021-03-05] MEDS: 0.9% Saline Lock 10 ML Syringe IV ×3 (10:23→23:14)
[2021-03-05 10:42] LABS: Vancomycin, Trough Level 10.4 ug/mL (5.0-15.0)
[2021-03-05] MEDS: Tamsulosin HCl 0.4 MG Capsule 0.8 MG PO (11:51)
--- NOTE | 2021-03-05 11:59 | CON.PCM_ITS ---
Consult Date of Consult: 03/05/21 Reason for Consult This is a Jorge dictating a consultation on Yoseph Boone. Mr. Boone is well-known to me as to 8 weeks ago I did a 360 degree fusion at the L4-5 and L5- S1 levels. This included repeat lumbar laminectomies at L4-5 and L5-S1 on the right side. After surgery he reported complete relief of his buttocks and thigh pain that he had prior to surgery. After going home he continued to have a slow increase in low back pain. The leg pain never came back. He winds was in significant pain on Saturday when I saw him. Is included sweats that he began having. We sent him to the emergency room and subsequently admitted him. After an MRI scan and lab work it was felt that he had epidural abscess as the cause of this tremendous amount of low back pain. Yesterday I took him back to surgery where I removed the hardware and bone graft posteriorly. Of course he still has his anterior hardware which included the first and second columns of the spine. I explained to him today that he can do just fine with the anterior construct. In fact only for started doing 360s we only did the front part and did not even do the back part. These were simple anterior lumbar interbody fusions with internal fixation. Many of these folks did well without any need for posterior instrumentation. Today when making rounds his back feels significantly better. In fact this morning he has not even had any pain medicine. His buttocks and thigh pain is still gone. He had 300 out of his Hemovac earlier so we will leave it in 1 more day. He is getting a PICC line today for his IV antibiotics. He was on vancomycin and Zosyn. I believe that Dr. Lizarraga discussed the case with the infectious disease doctor who recommended the Zosyn changed to something else and continue the vancomycin. All we know so far is that he has a gram-positive cocci. He tested negative for MRSA. We will await the ID consult for recommendations as to the long-term treatment which will probably include several weeks of IV antibiotics. Neurologically the patient remains intact he has good motor strength of all the major muscle groups of both lower extremities. He can actually stand up on his own by himself from the bed onto his walker. He has physiologic reflexes bilaterally. He has no long tract signs. I will make rounds again tomorrow and the patient and remove his Hemovac. Progress is satisfactory at this point. This is the end of consultation of on Yoseph Jaraorrow. This is Dr. Jorge dictating.
[2021-03-05 13:27] VITALS: BP 145/74; PULSE 79; RESP 16; TEMP 36.6; O2SAT 96
--- NOTE | 2021-03-05 14:48 | PCM.RX.CS ---
Consult Pharmacy has been consulted to manage selected antiobiotic: Vancomycin Type of Consult: Follow-up Labs: Sodium 137 mmol/L (136-145) 03/05/21 05:25 Potassium 4.1 mmol/L (3.5-5.1) 03/05/21 05:25 Chloride 106 mmol/L (98-107) 03/05/21 05:25 Carbon Dioxide 25.0 mmol/L (21.0-32.0) 03/05/21 05:25 Anion Gap 6 (5-15) 03/05/21 05:25 BUN 22 mg/dL (7-18) H 03/05/21 05:25 Creatinine 1.37 mg/dL (0.70-1.30) H 03/05/21 05:25 Est GFR (MDRD) Af Amer 68 mL/min (>60) 03/05/21 05:25 Est GFR (MDRD) Non-Af 57 mL/min (>60) L 03/05/21 05:25 BUN/Creatinine Ratio 16.1 RATIO (10-20) 03/05/21 05:25 Glucose 114 mg/dL (74-106) H 03/05/21 05:25 Vancomycin Trough 10.4 ug/mL (5.0-15.0) 03/05/21 09:50 Microbiology: Microbiology 03/03/21 11:55 Blood Culture (Wb) - Anticubital Right Blood Culture - Preliminary No growth in 48 hours. 03/04/21 11:05 Incision/Surgical Site Gram Stain - Final 03/04/21 11:05 Incision/Surgical Site Wound Culture - Preliminary No growth-Final to follow 03/04/21 09:15 Nasal Secretion SARS-CoV-2 Antigen (Rapid) - Final Goal Trough: 15-20 mcg/mL Pharmacy Plan for Drug Dosing: VANCOMYCIN LEVEL RECEIVED Current Vancomycin Dose: 1250mg q12h (,) Number of Doses Received: 2000mg x1, 1250mg x2 Vancomycin Level: 10.4 Hours Since Last Dose: Renal Function: SrCr 1.37 Renal Function Trend: SrCr decreasing Lab/Micro: Vancomycin Plan/Comments: recommend increasing dose from 1250mg q12h to 1500mg q12h starting 03/05/21 at 2200. trough before the 4th dose Pending Level: 03/07/21 at 0930 Pharmacy Service will continue to monitor and adjust dosing as required. Follow-Up Labs: Trough Vancomycin - 03/07/21 at 0930
[2021-03-05 16:42] VITALS: BP 157/78; PULSE 75; RESP 16; TEMP 37.1; O2SAT 93
[2021-03-05 21:28] VITALS: BP 150/74; PULSE 85; RESP 16; TEMP 37.2; O2SAT 95
[2021-03-05] MEDS: Pantoprazole Sodium 40 MG Tablet PO (21:55)
[2021-03-06] MEDS: Acetaminophen 325 MG Tablet 650 MG PO ×3 (00:22→21:13)
[2021-03-06] MEDS: oxyCODONE 5 MG Tablet 10 MG PO (00:22)
[2021-03-06] MEDS: LORazepam 1 MG Tablet 2 MG PO ×3 (02:32→17:57)
[2021-03-06] MEDS: fentaNYL 25 MCG Patch TD (02:32)
[2021-03-06] MEDS: 0.9% Normal Saline 1,000 ML 100 ML IV (02:54)
[2021-03-06 03:01] VITALS: BP 169/86; PULSE 87; RESP 16; TEMP 37.1; O2SAT 95
[2021-03-06 06:33] LABS: Absolute Lymphocyte Count 2.37 X10^3/uL (0.83-4.51); Absolute Neutrophil Count 5.2 X10^3/uL (2.0-7.7); Basophil# 0.06 X10^3/uL; Basophil% 0.7 % (0-1); Eosinophil# 0.15 X10^3/uL; Eosinophils% 1.8 % (0-5); Hematocrit 29.9 % (40-54); Hemoglobin 10.3 g/dL (13.0-16.5); Lymphocyte # 2.37 X10^3/ul (0.83-4.51); Lymphocyte % 27.9 % (19-41); Mean Corp Hgb Conc 34.4 g/dL (32-36); Mean Corpuscular Hgb 31.4 pg (27.0-32.0); Mean Corpuscular Volume 91.2 fL (80-94); Mean Platelet Vol. 8.6 fl (6.2-12.0); Monocyte# 0.67 X10^3/uL; Monocyte% 7.9 % (0-10); NRBC Flagged by Analyzer 0 % (0-5); Neutrophil # 5.22 X10^3/uL (2.7-7.7); Neutrophil % 61.5 % (47-70); Platelet Count 481 K/mm3 (150-450); RBC Distribution Width SD 40.2 fl (35.1-43.9); Red Blood Count 3.28 M/mm3 (4.6-6.2); White Blood Count 8.5 K/mm3 (4.4-11.0)
[2021-03-06 06:55] LABS: Anion Gap 5 (5-15); BUN 15 mg/dL (7-18); Calcium,Total 8.1 mg/dL (8.5-10.1); Chloride 108 mmol/L (98-107); EST Glomerular Filtration Rate 81 mL/min (>60); Est Glom Filt Rate - Afr Amer 98 mL/min (>60); Estimated Creatinine Clearance 82.13 ml/min; Glucose 88 mg/dL (74-106); Potassium 3.8 mmol/L (3.5-5.1); Sodium Level 140 mmol/L (136-145)
[2021-03-06 07:31] VITALS: O2SAT 94
[2021-03-06 07:35] VITALS: BP 171/80; PULSE 81; RESP 15; TEMP 36.4; O2SAT 97
--- NOTE | 2021-03-06 09:18 | PN.HOSP_ITS ---
Subjective Subjective Patient complains of back pain constant got exacerbated by changing position or standing up. Patient was able to stand up and walk few steps yesterday but had problems with equilibrium and balance. Has ROSIE drain in the back. Objective Data Objective Data Vital Signs: Vital Signs Temp Pulse Resp BP Pulse Ox 97.6 F L 81 15 171/80 H 97 03/06/21 07:35 03/06/21 07:35 03/06/21 07:35 03/06/21 07:35 03/06/21 07:35 Oxygen Flow Rate (L/min) 2 Oxygen Delivery Method Room Air Weight: 225 lb 8.526 oz Body Mass Index (BMI) 32.3 Intake & Output: Intake and Output for Last 24 Hours 03/04/21 03/05/21 03/06/21 23:59 23:59 23:59 Intake Total 2234.38 / 2834.38 4145.01 / 4145.01 311.67 / 311.67 Output Total 575 / 995 1430 / 1430 Balance 1659.38 / 1839.38 2715.01 / 2715.01 291.67 / 291.67 Medical Nutrition Assessment Dietitian: Malnutrition Criteria Met Start: 03/04/21 09:19 Freq: Status: Active Protocol: Document 03/04/21 09:40 (Rec: 03/04/21 09:40 [id number]) Nutrition Malnutrition Evidence of Malnutrition Exists Yes Malnutrition (severe): Acute Illness/Injury Evidenced By Suboptimal Energy Intake ( Severe),Weight Loss (Severe) Clinical Problem Acute Disease or Injury Related Malnutrition Etiology severe, acute malnutrition r/t inadequate energy intake w/ increased energy needs after surgery Signs/Symptoms as evidenced by unintentional wt loss of 22.7#/9% <1 month, estimated PO intake meeting < 50% of estimated nutritional needs <1 month Status Active Problem Recommendation Dietitian Recommendations/Changes regular diet when medically indicated; ensure enlive 120mL 4x/day w/ medpass when PO diet resumed. Lab / Micro Data Result Diagrams: 03/06/21 05:05 03/06/21 05:05 Labs: Laboratory Results - last 24 hr 03/05/21 09:50: Vancomycin Trough 10.4 03/06/21 05:05: WBC 8.5, RBC 3.28 L, Hgb 10.3 L, Hct 29.9 L, MCV 91.2, MCH 31.4, MCHC 34.4, RDW Std Deviation 40.2, RDW Coeff of Shamika 12.0, Plt Count 481 H, MPV 8.6, Immature Gran % (Auto) 0.200, Neut % (Auto) 61.5, Lymph % (Auto) 27.9, [place] % (Auto) 7.9, Eos % (Auto) 1.8, Baso % (Auto) 0.7, Absolute Neuts (auto) 5.2, Absolute Lymphs (auto) 2.37, Nucleated RBC % 0 03/06/21 05:05: Sodium 140, Potassium 3.8, Chloride 108 H, Carbon Dioxide 27.0, Anion Gap 5, BUN 15, Creatinine 1.00, Estim Creat Clear Calc 82.13, Est GFR (MDRD) Af Amer 98, Est GFR (MDRD) Non-Af 81, BUN/Creatinine Ratio 15.0, Glucose 88, Calcium 8.1 L Micro: Microbiology 03/03/21 11:55 Blood Culture (Wb) - Anticubital Right Blood Culture - Preliminary No growth in 48 hours. 03/04/21 11:05 Incision/Surgical Site Gram Stain - Final 03/04/21 11:05 Incision/Surgical Site Wound Culture - Preliminary No growth-Final to follow 03/04/21 09:15 Nasal Secretion SARS-CoV-2 Antigen (Rapid) - Final Physical Exam Narrative General: Alert, Oriented x3, Cooperative. Intermittent confusion probably postsurgical/infection HEENT: Atraumatic, PERRLA, EOMI, Normocephalic Oral: No Gingival or Mucosal Lesions/ Ulcerations Neck: Supple, No JVD, Negative Carotid Bruits Lungs: Air entry diminished in bilateral lung bases. No crepitation/rhonchi Cardiovascular: Regular rate, Regular Rhythm, Normal S1, Normal S2, No murmurs Abdomen: Bowel Sounds Present, Soft, Non Tender, Non-Distended : No renal angle tenderness. No suprapubic tenderness. Extremities: No edema, Capillary Refill Less than 3 Seconds Skin: Surgical wound in the back. Musculoskeletal/back: Tenderness over lumbar spinal and paraspinal area. Surgical dressing is dry. ROSIE drain sanguinous collection. Neurological: Cranial nerves II-XII grossly intact, DTR 2+/4 and Symmetrical, Neuro grossly intact Psych/Mental Status: Normal Affect, Appropriate. Assessment & Plan Assessment/Plan (1) Intractable back pain: (2) Leukocytosis: QUALIFIERS: Leukocytosis type: unspecified Qualified Code(s): D72.829 - Elevated white blood cell count, unspecified (3) Thrombocytosis: (4) S/P lumbar fusion: PLAN: 1. Intractable back pain status post lumbar fusion: -Patient underwent surgery 03/04/[address] Jorge for patient was found to have a epidural abscess. Patient's bone graft and hardware was removed and irrigation was completed. Patient currently has a medium Hemovac drain in place. Dr. Jorge note reviewed. Plan for removal of Hemovac drain. Dr. Craig recommended long-term outpatient antibiotics. The patient has right arm PICC line. -Lumbar spine MRI with and without contrast demonstrates postsurgical changes at L4 and L5 L5 and S1 along with concerns for acute osteomyelitis and discitis at L4-L5 with phlegmonous change in the right paravertebral soft tissues and epidural empyema posterior to L5 producing compression and thecal sac. -Graduated pain management regimen on Tylenol, OxyIR, morphine. -Patient transitioned from Zosyn to cefepime, continue vancomycin. -Dr. Craig consulted. Deleon catheter removed. on Flomax as patient had difficulty urinating following catheter removal during previous surgery. 2. Leukocytosis: Resolved. Rest as mentioned above. 3. Thrombocytosis: Improved 481,000. Most probably reactive secondary to surgery. Monitor CBC daily 4. LIZA: Resolved. BUN/creatinine normal. DC IV fluid DVT prophylaxis-SCDs, no pharmacological prophylaxis at this time Charges/Coding Visit Charges Inpatient E&M: 85797 Subs Hosp L2
[2021-03-06] MEDS: 0.9% Saline Lock 10 ML Syringe IV ×3 (09:47→20:58)
[2021-03-06] MEDS: Morphine 4 MG/ML Syringe IV (09:47)
[2021-03-06] MEDS: Senna/Docusate Sodium 1 Tablet 2 TABLET PO ×2 (10:38→21:13)
[2021-03-06] MEDS: Polyethylene Glycol 3350 17 GM PACKET PO (10:38)
[2021-03-06] MEDS: Bisacodyl 10 MG Suppository RC (10:39)
[2021-03-06] MEDS: Ensure Surgery 237 ML LIQUID PO ×2 (10:43→17:58)
[2021-03-06] MEDS: oxyCODONE 5 MG Tablet PO ×2 (13:01→17:49)
--- NOTE | 2021-03-06 15:09 | PCM.CONS.GEN ---
Assessment & Plan Assessment/Plan (1) S/P lumbar fusion: (2) Intractable back pain: PLAN: Deep surg site infection s/p L4-5 fusion 02/14/[address] Jorge. Taken to OR 03/[address] Jorge for epidural abscesses, hardware removal. On vanc/cefepime, surg cxs pending. Plan will be for at least 6 weeks iv abx. Will follow, thank you HPI Consult Data Date of Consult: 03/06/21 HPI Narrative HPI Narrative: UMESH BAUER, is a 60 M who presented 03/03 after L4-5 lumbar fusion 02/[address] Jorge. Since surgery, was having excruciating pain and drenching sweats, chills. No issues with redness/swelling/drainage at incision sites. Sent to ED, admitted, taken to OR 03/04 for I&D and removal of hardware and bone graft material. Now on vanc/cefepime. Has had covid vaccine. ROS unobtainable due to altered mental status. FOR[facility]LY [facility], LATER [facility] Medical History Alcohol use Arthritis Back pain Former smoker Gastric reflux History of anal fissures History of pain when walking History of stress test History of trigger finger History of unsteady gait Leg cramps Low iron Marijuana use Migraine headache Wears glasses Home Medications oxaprozin 600 mg tablet 600 mg PO QHS 11/19/19 [History Last Taken 03/01/21] pregabalin 75 mg capsule 150 mg PO QHS 11/19/19 [History Last Taken 03/01/21] tramadol 50 mg tablet 50 mg PO QHS 11/19/19 [History Last Taken 03/01/21] testosterone cypionate 200 mg/mL intramuscular oil 200 mg IM .Q2WEEK ml 01/30/21 [History Last Taken 2 Weeks Ago ~02/17/21] vitamin B complex 1 tab PO DAILY 01/30/21 [History Last Taken 03/01/21] magnesium 250 mg PO QHS 01/31/21 [History Last Taken 03/01/21] diazepam 5 mg tablet 5 mg PO TID PRN #30 tab 02/19/21 [Rx Last Taken 03/01/21] hydromorphone 4 mg tablet 4 mg PO Q4H PRN 10 Days #60 tab 02/22/21 [Rx Last Taken 03/03/21] pantoprazole 40 mg PO QHS 03/03/21 [History Last Taken 03/01/21] Allergy/AdvReac Type Severity Reaction Status Date / Time shellfish derived Allergy Swelling Verified 02/22/21 10:33 surgical tape Allergy Rash Uncoded 02/14/21 08:21 Family History Mother Lung cancer Father Dementia Surgical History H/O left knee surgery h/o lumbar spine surgery Hx of colonoscopy Hx of hemorrhoidectomy Social History Smoking Status: Former smoker alcohol intake: current alcohol intake frequency: holidays/special occasions only what type of physical activity do you participate in: weight training Physical Exam Const General Appearance: lethargic HEENT normocephalic and head/scalp atraumatic Eyes PERRL and EOMs intact bilaterally Neck supple and No nodes Resp normal air movement and clear to auscultation bilaterally Cardio regular rate and regular rhythm GI normal to inspection, nondistended, normoactive bowel sounds Extremity no clubbing, cyanosis or edema Skin no rashes or lesions noted Medical Records Data Medical Nutrition Assessment Dietitian: Malnutrition Criteria Met Start: 03/04/21 09:19 Freq: Status: Active Protocol: Document 03/04/21 09:40 (Rec: 03/04/21 09:40 [id number]) Nutrition Malnutrition Evidence of Malnutrition Exists Yes Malnutrition (severe): Acute Illness/Injury Evidenced By Suboptimal Energy Intake ( Severe),Weight Loss (Severe) Clinical Problem Acute Disease or Injury Related Malnutrition Etiology severe, acute malnutrition r/t inadequate energy intake w/ increased energy needs after surgery Signs/Symptoms as evidenced by unintentional wt loss of 22.7#/9% <1 month, estimated PO intake meeting < 50% of estimated nutritional needs <1 month Status Active Problem Recommendation Dietitian Recommendations/Changes regular diet when medically indicated; ensure enlive 120mL 4x/day w/ medpass when PO diet resumed. Lab / Micro Data Result Diagrams: 03/06/21 05:05 03/06/21 05:05 Labs: Laboratory Results - last 24 hr 03/06/21 05:05: WBC 8.5, RBC 3.28 L, Hgb 10.3 L, Hct 29.9 L, MCV 91.2, MCH 31.4, MCHC 34.4, RDW Std Deviation 40.2, RDW Coeff of Shamika 12.0, Plt Count 481 H, MPV 8.6, Immature Gran % (Auto) 0.200, Neut % (Auto) 61.5, Lymph % (Auto) 27.9, [place] % (Auto) 7.9, Eos % (Auto) 1.8, Baso % (Auto) 0.7, Absolute Neuts (auto) 5.2, Absolute Lymphs (auto) 2.37, Nucleated RBC % 0 03/06/21 05:05: Sodium 140, Potassium 3.8, Chloride 108 H, Carbon Dioxide 27.0, Anion Gap 5, BUN 15, Creatinine 1.00, Estim Creat Clear Calc 82.13, Est GFR (MDRD) Af Amer 98, Est GFR (MDRD) Non-Af 81, BUN/Creatinine Ratio 15.0, Glucose 88, Calcium 8.1 L Micro: Microbiology 03/03/21 16:14 Blood Culture (Wb) - Anticubital Left Blood Culture - Preliminary No growth in 48 hours. 03/04/21 11:05 Incision/Surgical Site Gram Stain - Final 03/04/21 11:05 Incision/Surgical Site Wound Culture - Preliminary No growth-Final to follow 03/04/21 11:05 Incision/Surgical Site Anaerobic Culture - Preliminary No growth in 48 hours. 03/03/21 11:55 Blood Culture (Wb) - Anticubital Right Blood Culture - Preliminary No growth in 48 hours.
[2021-03-06 15:39] VITALS: BP 170/65; PULSE 87; RESP 16; TEMP 36.6; O2SAT 95
[2021-03-06] MEDS: HYDROmorphone 0.5 MG/0.5 ML SYRINGE IV ×2 (15:40→20:58)
--- NOTE | 2021-03-06 16:34 | CASEMGMT ---
CELINE GROSS in to pt room, spoke with pt , pt lying with eyes closed. Pt states that they are aware pt will need IV atb upon dc. Patient was provided a list of HHC/Infusion providers including quality and resource use data and consistent with the patient?s preferred geographic region, medical needs, and insurance network. She will review this list and CELINE GROSS will check back on choices.
--- NOTE | 2021-03-06 17:36 | PCM.PN.ORT ---
Objective Data Objective Data Vital Signs: Vital Signs Temp Pulse Resp BP Pulse Ox 97.8 F 87 16 170/65 H 95 03/06/21 15:39 03/06/21 15:39 03/06/21 15:39 03/06/21 15:39 03/06/21 15:39 Oxygen Flow Rate (L/min) 2 Oxygen Delivery Method Room Air Weight: 225 lb 8.526 oz Body Mass Index (BMI) 32.3 Intake & Output: Intake and Output for Last 24 Hours 03/04/21 03/05/21 03/06/21 23:59 23:59 23:59 Intake Total 2234.38 / 2834.38 4145.01 / 4145.01 2139.59 / 2139.59 Output Total 575 / 995 1430 / 1430 1045 / 1045 Balance 1659.38 / 1839.38 2715.01 / 2715.01 1094.59 / 1094.59 Medical Nutrition Assessment Dietitian: Malnutrition Criteria Met Start: 03/04/21 09:19 Freq: Status: Active Protocol: Document 03/04/21 09:40 AG (Rec: 03/04/21 09:40 AG [id number]) Nutrition Malnutrition Evidence of Malnutrition Exists Yes Malnutrition (severe): Acute Illness/Injury Evidenced By Suboptimal Energy Intake ( Severe),Weight Loss (Severe) Clinical Problem Acute Disease or Injury Related Malnutrition Etiology severe, acute malnutrition r/t inadequate energy intake w/ increased energy needs after surgery Signs/Symptoms as evidenced by unintentional wt loss of 22.7#/9% <1 month, estimated PO intake meeting < 50% of estimated nutritional needs <1 month Status Active Problem Recommendation Dietitian Recommendations/Changes regular diet when medically indicated; ensure enlive 120mL 4x/day w/ medpass when PO diet resumed. Lab / Micro Data Result Diagrams: 03/06/21 05:05 03/06/21 05:05 Labs: Laboratory Results - last 24 hr 03/06/21 05:05: WBC 8.5, RBC 3.28 L, Hgb 10.3 L, Hct 29.9 L, MCV 91.2, MCH 31.4, MCHC 34.4, RDW Std Deviation 40.2, RDW Coeff of Shamika 12.0, Plt Count 481 H, MPV 8.6, Immature Gran % (Auto) 0.200, Neut % (Auto) 61.5, Lymph % (Auto) 27.9, [place] % (Auto) 7.9, Eos % (Auto) 1.8, Baso % (Auto) 0.7, Absolute Neuts (auto) 5.2, Absolute Lymphs (auto) 2.37, Nucleated RBC % 0 03/06/21 05:05: Sodium 140, Potassium 3.8, Chloride 108 H, Carbon Dioxide 27.0, Anion Gap 5, BUN 15, Creatinine 1.00, Estim Creat Clear Calc 82.13, Est GFR (MDRD) Af Amer 98, Est GFR (MDRD) Non-Af 81, BUN/Creatinine Ratio 15.0, Glucose 88, Calcium 8.1 L Micro: Microbiology 03/03/21 16:14 Blood Culture (Wb) - Anticubital Left Blood Culture - Preliminary No growth in 48 hours. 03/04/21 11:05 Incision/Surgical Site Gram Stain - Final 03/04/21 11:05 Incision/Surgical Site Wound Culture - Preliminary No growth-Final to follow 03/04/21 11:05 Incision/Surgical Site Anaerobic Culture - Preliminary No growth in 48 hours. 03/03/21 11:55 Blood Culture (Wb) - Anticubital Right Blood Culture - Preliminary No growth in 48 hours. 03/04/21 09:15 Nasal Secretion SARS-CoV-2 Antigen (Rapid) - Final Procedure Criteria Elective Risks - COVID COVID Risk Discussion: Postop day #2. Patient is not as animated today as he was yesterday. I went ahead and remove the dressing and changed it and removed the drain. Incision looks good. Neurocirculation is intact. Microbiology information so far demonstrates that the gram-positive was negative for staph aureus and negative for MRSA.. Dr. Craig saw the patient today. He feels that the patient has osteomyelitis. He is recommending 6 weeks of IV antibiotic therapy. Home health will start scheduling that hopefully he can go home tomorrow on his 2 antibiotics. Progress is satisfactory at this point.
[2021-03-06] MEDS: Tamsulosin HCl 0.4 MG Capsule 0.8 MG PO (17:48)
[2021-03-06 21:00] VITALS: BP 130/78; PULSE 75; RESP 15; TEMP 37; O2SAT 94
[2021-03-06] MEDS: Pantoprazole Sodium 40 MG Tablet PO (21:13)
[2021-03-06] MEDS: Temazepam 15 MG Capsule PO (21:13)
[2021-03-07] MEDS: HYDROmorphone 0.5 MG/0.5 ML SYRINGE IV ×3 (01:02→17:00)
[2021-03-07] MEDS: 0.9% Saline Lock 10 ML Syringe IV ×5 (01:02→16:59)
[2021-03-07 03:00] VITALS: BP 152/78; PULSE 79; RESP 18; TEMP 37; O2SAT 96
[2021-03-07] MEDS: LORazepam 1 MG Tablet 2 MG PO ×3 (03:13→18:41)
[2021-03-07] MEDS: oxyCODONE 5 MG Tablet PO ×4 (03:13→18:40)
[2021-03-07 07:58] VITALS: O2SAT 97
[2021-03-07 08:38] VITALS: BP 161/81; PULSE 85; RESP 16; TEMP 36.8; O2SAT 97
--- NOTE | 2021-03-07 08:47 | PCM.DC ---
Discharge Instructions Diet Discharge Diet: Low fat / Low cholesterol and 2000 mg Sodium Diet Activity Discharge Activity: May Not Drive Weight Bearing Status: Weight bearing as tolerated Dressing / Incision Call your doctor if you observe: Fever of 101 or Higher, Coldness, Increased Pain, Numbness or Tingling, Change in Color, Inability to urinate, Inability to have a bowel movement, Shortness of breath, Dizziness, Fainting spells, Swelling in the ankles, Chest pain, Prolonged hiccupping, Increased palpitations (irregular heartbeat), Calf discomfort and Uncontrolled pain Follow Up Care Test Results: Test results from this visit will be discussed in further detail at your follow-up appointment, if applicable. Discharge Plan Admission Admit Date/Time: 03/03/21 20:56 Primary Reason for Your Visit: Deep tissue SSI, Osteomyelitis Attending Provider: Chapo Rivera Primary Care Provider: Saul Lagos Consulting Providers: Robby Jorge ; Saul Craig Instructions Additional Instructions / Restrictions: Patient is discharged on IV antibiotics vancomycin and cefepime for 6 weeks for osteomyelitis. Outpatient physical therapy. Patient has a walker. Weekly CBC and BMP. Discharge Orders/Prescriptions Prescriptions: New polyethylene glycol 3350 17 gram Powder In Packet 17 g PO DAILY Qty: 30 RF: 0 cefepime 2 gram Recon Soln 2 g IV Q12 Qty: 0 RF: 0 sennosides-docusate sodium [Stool Softener-Stimulant Laxat] 8.6-50 mg Tablet 2 tab PO BID Qty: 60 RF: 0 Continued pregabalin [Lyrica] 75 mg capsule 150 mg PO QHS RF: 0 tramadol 50 mg tablet 50 mg PO QHS RF: 0 oxaprozin [Daypro] 600 mg tablet 600 mg PO QHS RF: 0 vitamin B complex [B Complex-Vitamin B12] Tablet 1 tab PO DAILY RF: 0 testosterone cypionate 200 mg/mL oil 200 mg IM .Q2WEEK RF: 0 magnesium 250 mg Tablet 250 mg PO QHS RF: 0 pantoprazole 40 mg tablet,delayed release (DR/EC) 40 mg PO QHS RF: 0 diazepam [Valium] 5 mg tablet 5 mg PO TID PRN (Reason: anxiety) Qty: 30 RF: 0 Changed hydromorphone [Dilaudid] 4 mg tablet 2 mg PO Q4H PRN (Reason: pain) 10 Days Qty: 60 RF: 0 Referrals / Follow Up: Saul Lagos DO [Primary Care Provider] - Within 2 Weeks Robby Jorge DO [STAFF PHYSICIAN] - Within 1 Week Saul Craig MD [STAFF PHYSICIAN] - Within 1 Month (On IV antibiotics, cefepime and vancomycin through right arm PICC line) Disposition Disposition (needs filled in before D/C Order can be placed): Home, Self Care
[2021-03-07] MEDS: Senna/Docusate Sodium 1 Tablet 2 TABLET PO ×2 (08:48→21:17)
--- NOTE | 2021-03-07 08:54 | DS.PCM_ITS ---
Providers Date of Admission: 03/03/21 Primary Care Physician: Dr. Saul Lagos, Consultations 03/03/21 21:13 Consult: Orthopedics Routine Consulting Provider: Robby Jorge Reason for Consult: Post op infection, s/p recent lumbar surgery. EMERGENT Consult: No Notified: Yes Date Notified: 03/03/21 Time Notified: 21:14 Method of Notification: Verbal Comments:: Dr Curry notified Luisito 03/05/21 19:36 Consult: Infectious Disease Routine Consulting Provider: Saul Craig Reason for Consult: osteomylitis of spine EMERGENT Consult: No Notified: Yes Date Notified: 03/05/21 Time Notified: 09:00 Method of Notification: Verbal Reason For Visit: INTRACTABLE BACK PAIN Diagnosis Discharge Diagnosis (1) S/P lumbar fusion: Status: Acute Code(s): Z98.1 - Arthrodesis status (2) Intractable back pain: Status: Acute Code(s): M54.9 - Dorsalgia, unspecified Medications at Discharge Home Medications oxaprozin 600 mg tablet 600 mg PO QHS 11/19/19 pregabalin 75 mg capsule 150 mg PO QHS 11/19/19 tramadol 50 mg tablet 50 mg PO QHS 11/19/19 testosterone cypionate 200 mg/mL intramuscular oil 200 mg IM .Q2WEEK ml 01/30/21 vitamin B complex 1 tab PO DAILY 01/30/21 magnesium 250 mg PO QHS 01/31/21 diazepam 5 mg tablet 5 mg PO TID PRN #30 tab 02/19/21 pantoprazole 40 mg PO QHS 03/03/21 cefepime 2 g IV Q12H #120 ea 03/07/21 hydromorphone [Dilaudid] 2 mg PO Q4H PRN 10 Days #60 tab 03/07/21 polyethylene glycol 3350 17 g PO DAILY #30 ea 03/07/21 sennosides-docusate sodium [Stool Softener-Stimulant Laxat] 2 tab PO BID #60 tab 03/07/21 tamsulosin [Flomax] 0.4 mg PO QHS #30 cap 03/07/21 vancomycin 1.5 g IV Q12H #80 ea 03/07/21 Hospital Course Summary of Care Provided Hospital Course: 1. Intractable back pain status post lumbar fusion with deep tissue, surgical site infection/osteomyelitis, postsurgical epidural abscess -Patient underwent surgery 03/04/[address] Jorge for patient was found to have a epidural abscess. Patient's bone graft and hardware was removed and irrigation was completed. Patient had Hemovac drain which was removed on 03/06 Dr. Jorge note reviewed. Dr. Craig recommended long-term, 6 weeks of IV antibiotics vancomycin and c efepime. The patient has right arm PICC line. -Lumbar spine MRI with and without contrast demonstrates postsurgical changes at L4 and L5 L5 and S1 along with concerns for acute osteomyelitis and discitis at L4-L5 with phlegmonous change in the right paravertebral soft tissues and epidural empyema posterior to L5 producing compression and thecal sac. -Graduated pain management regimen on Tylenol, OxyIR, morphine. Patient also had difficulty in the spontaneous voiding after removal of catheter but did well on Flomax. Prescription given for Flomax 0.4 mg at bedtime in case if patient has increased straining/retention of urine. 2. Leukocytosis: Resolved. Rest as mentioned above. 3. Thrombocytosis: Improved 481,000. Most probably reactive secondary to surgery. Monitor CBC daily 4. LIZA: Resolved. BUN/creatinine normal. DC IV fluid DVT prophylaxis-SCDs, no pharmacological prophylaxis at this time Discharge medication reconciliation done. Discharge follow-up instructions comp leted. Discharge process discussed with the patient and all questions were answered to patient's satisfaction. Follow-up with Dr. Jorge as an outpatient and ID if needed. Weekly CBC and BMP while on it antibiotic and follow-up with ID Total time spent, exact 35 minutes on discharge meds reconciliation, examination, coordination of care with nurses and ancillary staff, review of imaging and blood test and discussion with the patient on follow-up instructions Physical Exam Narrative General: Alert, Oriented x3, Cooperative. HEENT: Atraumatic, PERRLA, EOMI, Normocephalic Oral: No Gingival or Mucosal Lesions/ Ulcerations Neck: Supple, No JVD, Negative Carotid Bruits Lungs: Air entry diminished in bilateral lung bases. No crepitation/rhonchi Cardiovascular: Regular rate, Regular Rhythm, Normal S1, Normal S2, No murmurs Abdomen: Bowel Sounds Present, Soft, Non Tender, Non-Distended : No renal angle tenderness. No suprapubic tenderness. Extremities: No edema, Capillary Refill Less than 3 Seconds Skin: Surgical wound in the back. Musculoskeletal/back: No tenderness over lumbar spinal and paraspinal area. Surgical dressing is dry. ROSIE drain removed. Neurological: Cranial nerves II-XII grossly intact, DTR 2+/4 and Symmetrical, Neuro grossly intact Psych/Mental Status: Normal Affect, Appropriate. Medical Records Data Medical Nutrition Assessment Dietitian: Malnutrition Criteria Met Start: 03/04/21 09:19 Freq: Status: Active Protocol: Document 03/04/21 09:40 AG (Rec: 03/04/21 09:40 [id number]) Nutrition Malnutrition Evidence of Malnutrition Exists Yes Malnutrition (severe): Acute Illness/Injury Evidenced By Suboptimal Energy Intake ( Severe),Weight Loss (Severe) Clinical Problem Acute Disease or Injury Related Malnutrition Etiology severe, acute malnutrition r/t inadequate energy intake w/ increased energy needs after surgery Signs/Symptoms as evidenced by unintentional wt loss of 22.7#/9% <1 month, estimated PO intake meeting < 50% of estimated nutritional needs <1 month Status Active Problem Recommendation Dietitian Recommendations/Changes regular diet when medically indicated; ensure enlive 120mL 4x/day w/ medpass when PO diet resumed. Weight / BMI Weight Weight: 225 lb 8.526 oz Body Mass Index (BMI) 32.3 ABG / Lab / Microbiology Data Result Diagrams: 03/06/21 05:05 03/06/21 05:05 Microbiology: Microbiology 03/04/21 11:05 Incision/Surgical Site Gram Stain - Final 03/04/21 11:05 Incision/Surgical Site Wound Culture - Final No growth aerobically. 03/04/21 11:05 Incision/Surgical Site Anaerobic Culture - Preliminary No growth in 48 hours. 03/03/21 16:14 Blood Culture (Wb) - Anticubital Left Blood Culture - Preliminary No growth in 48 hours. 03/03/21 11:55 Blood Culture (Wb) - Anticubital Right Blood Culture - Preliminary No growth in 48 hours. 03/04/21 09:15 Nasal Secretion SARS-CoV-2 Antigen (Rapid) - Final D/C Instructions Discharge Diet: Low fat / Low cholesterol and 2000 mg Sodium Diet Weight Bearing Status: Weight bearing as tolerated Call your doctor if you observe: Fever of 101 or Higher, Coldness, Increased Pain, Numbness or Tingling, Change in Color, Inability to urinate, Inability to have a bowel movement, Shortness of breath, Dizziness, Fainting spells, Swelling in the ankles, Chest pain, Prolonged hiccupping, Increased palpitations (irregular heartbeat), Calf discomfort and Uncontrolled pain Meaningful Use Info Meaningful Use Diagnoses (Choose all that apply): None applicable Discharge Plan Admission Admit Date/Time: 03/03/21 20:56 Primary Reason for Your Visit: Deep tissue SSI, Osteomyelitis Attending Provider: Chapo Rivera Primary Care Provider: Saul Lagos Consulting Providers: Robby Jorge ; Saul Craig Instructions Additional Instructions / Restrictions: Patient is discharged on IV antibiotics vancomycin and cefepime for 6 weeks for osteomyelitis. Outpatient physical therapy. Patient has a walker. Weekly CBC and BMP. Discharge Orders/Prescriptions Prescriptions: New polyethylene glycol 3350 17 gram Powder In Packet 17 g PO DAILY Qty: 30 RF: 0 sennosides-docusate sodium [Stool Softener-Stimulant Laxat] 8.6-50 mg Tablet 2 tab PO BID Qty: 60 RF: 0 tamsulosin [Flomax] 0.4 mg capsule 0.4 mg PO QHS Qty: 30 RF: 0 cefepime 2 gram recon soln 2 g IV Q12H Qty: 120 RF: 0 vancomycin 1.5 gram recon soln 1.5 g IV Q12H Qty: 80 RF: 0 Continued pregabalin [Lyrica] 75 mg capsule 150 mg PO QHS RF: 0 tramadol 50 mg tablet 50 mg PO QHS RF: 0 oxaprozin [Daypro] 600 mg tablet 600 mg PO QHS RF: 0 vitamin B complex [B Complex-Vitamin B12] Tablet 1 tab PO DAILY RF: 0 testosterone cypionate 200 mg/mL oil 200 mg IM .Q2WEEK RF: 0 magnesium 250 mg Tablet 250 mg PO QHS RF: 0 pantoprazole 40 mg tablet,delayed release (DR/EC) 40 mg PO QHS RF: 0 diazepam [Valium] 5 mg tablet 5 mg PO TID PRN (Reason: anxiety) Qty: 30 RF: 0 Changed hydromorphone [Dilaudid] 4 mg tablet 2 mg PO Q4H PRN (Reason: pain) 10 Days Qty: 60 RF: 0 Referrals / Follow Up: Robby Jorge DO [STAFF PHYSICIAN] - Within 1 Week Saul Craig MD [STAFF PHYSICIAN] - Within 1 Month (On IV antibiotics, cefepime and vancomycin through right arm PICC line) Saul Lagos DO [Primary Care Provider] - Within 2 Weeks Disposition Disposition (needs filled in before D/C Order can be placed): Home, Self Care Charges/Coding Visit Charges Inpatient E&M: 98855 Disch Hosp
--- NOTE | 2021-03-07 09:38 | CASEMGMT ---
Addendum entered by Betty Ramirez 03/07/21 16:27: TC to [facility] is able to accept pt. Spoke with Merle at [facility] and pt is covered at 100%. Plan to deliver IV atb tonight and [facility] to start tomorrow. Pt and updated. Addendum entered by Betty Ramirez 03/07/21 15:53: Received call back from [facility] and they are unable to staff pt. Addendum entered by Betty Ramirez 03/07/21 15:47: TC to [facility], referral faxed. TC to [facility], infusion coordinator to call this RN CM back. Addendum entered by Betty Ramirez 03/07/21 13:19: [facility] spoke with Merle faxed referral at this time. TC to Merle at [facility], she states they are having a hard time locating pt insurance card. Faxed copies at this time. Addendum entered by Betty Ramirez 03/07/21 13:09: Received tc back from [facility], they are unable to staff pt. RN CM back into pt room. Pt at bedside. Next choice is [facility]. Pt is asking why he cannot go home on IV dilaudid. Made aware that this is not a medication that is ordered at home. Addendum entered by Betty Ramirez 03/07/21 11:20: RN CM received tc from pt . They would like [facility] and [facility] optioncare. TC to [facility] and referral faxed as well as [facility]. Addendum entered by Btety Ramirez 03/07/21 10:33: TC to pt to see choice for [facility]. She states she will call in to pt and then call this RN CM back. Original Note: RN CM in to pt room to obtain choices for HHC. Pt states that his will be in in a bit and she didn't tell him which agency she wanted. He will defer to her. RN CM to check back.
[2021-03-07 10:15] LABS: Vancomycin, Trough Level 13.4 ug/mL (5.0-15.0)
--- NOTE | 2021-03-07 10:36 | PCM.PN.ID ---
Physical Exam Narrative No fever, feeling a little better, asking about going home Const no apparent distress General Appearance: cooperative Resp normal air movement and clear to auscultation bilaterally Cardio regular rate and regular rhythm GI normal to inspection, nondistended, normoactive bowel sounds Skin no rashes or lesions noted ID ID: Route of nutrition/ use of supplements: [] Nutritional Intake: [] IV Site: [] Deleon Catheter: [] Assessment & Plan Assessment/Plan (1) S/P lumbar fusion: (2) Intractable back pain: PLAN: Deep surg site infection s/p L4-5 fusion 02/14/[address] Jorge. Taken to OR 03/[address] Jorge for epidural abscesses, hardware removal. On vanc/cefepime, surg cxs neg so far. Plan will be for 6 weeks iv vanc/cefepime, stop date 04/15/21, wrote rx. ID followup in 2 weeks. Will follow, d/w immigration case manager
[2021-03-07 10:59] VITALS: O2SAT 97
--- NOTE | 2021-03-07 13:00 | CASEMGMT ---
Addendum entered by Minerva Armenta 03/07/21 15:25: FARTUN called [place] with [facility] and inquired about RU. Pt doens't have qualifying diagnosis for [facility]. FARTUN in to speak with pt and pt's Gato. FARTUN informed Gato that [facility] is not in network with pt's insurance so if they want SNF it will have to be SNF in the community. Pt soundly sleeping, did not wake up when this worker was in the room. Gato questioning if pt can stay additional night for pain management. FARTUN informed Gato, will check with physician. Addendum entered by Minerva Armenta 03/07/21 14:06: SW did call TCU just to inquire about pt's insurance. TCU is not in network with pt's insurance. SW to continue to follow. Original Note: Social Work Note SW updated that pt and pt's are considering SNF. SW in to speak with pt and pt's Gato. FARTUN introduced self and role at [facility]. SW spoke with pt and Gato about SNF. Pt asked why he can't control his pain at home? Pt's Gato informed pt that he is on IV Dilaudid and he cannot get that at home. Patient was provided a list of SNF providers including quality and resource use data and consistent with the patient?s preferred geographic region, medical needs, and insurance network. Pt states I need to speak to Dr. Jorge first. SW informed pt and Gato that this worker can come back later today as time allows once pt is seen by physician. Plan: TBD Minerva Armenta ROUGH AND TRUING MACHINE OPERATOR, INTERNAL CORROSION SPECIALIST
[2021-03-07 14:05] VITALS: BP 160/92; PULSE 82; RESP 16; TEMP 36.6; O2SAT 97
--- NOTE | 2021-03-07 15:50 | CHAPLAIN ---
Type of Pastoral Visit _x__ Initial Visit ___ Follow-up Visit ___ On-call Visit ___ General Patient Visit ___ Spiritual Assessment ___ Family Conference ___ Bereavement ___ Rapid Response ___ Code Blue ___ Other (describe below) Pastoral Care Referral From _x__ Patient ___ Family ___ Nurse ___ Physician ___ Paper Cleaner ___ Custom Grinder ___ Other (describe below) Sacrament/Intervention _x__ Active listening ___ Anointing ___ Sikh ___ Bereavement ___ Communion ___ Sallie exploration ___ ___ Life review _x__ Prayer ___ Reconciliation ___ Sacrament of Sick _x__ Supportive presence ___ Wedding ___ Other (describe below) Pastoral Comments patient and spouse in room; pt is awake and interacts in conversation but speaks as well to give details and circumstances; both identify as believers and trusting in God for this time; pt requests prayer support
[2021-03-07] MEDS: Tamsulosin HCl 0.4 MG Capsule 0.8 MG PO (17:05)
[2021-03-07] MEDS: Juven (unflavored) Packet 1 PACKET PO (17:05)
[2021-03-07 19:28] VITALS: BP 177/79; PULSE 83; RESP 18; TEMP 37.1; O2SAT 97
[2021-03-07] MEDS: Pantoprazole Sodium 40 MG Tablet PO (21:17)
[2021-03-08 00:15] VITALS: BP 170/85; PULSE 85; RESP 18; TEMP 37.2; O2SAT 98
[2021-03-08] MEDS: oxyCODONE 5 MG Tablet PO (00:20)
[2021-03-08] MEDS: Ondansetron 4 MG/2 ML Vial IV (00:20)
[2021-03-08] MEDS: 0.9% Saline Lock 10 ML Syringe IV (00:27)
[2021-03-08 09:02] LABS: Pathologist Review Reviewed
--- NOTE | 2021-03-08 09:15 | CASEMGMT ---
Addendum entered by Betty Ramirez 03/08/21 09:28: Received tc back from Bobbi, she will call Patrick to facilitate auth. Provided her with Patrick's phone number. Original Note: Received tc from Patrick at [facility], he states they have not been able to receive authorization to see pt today and if they do not receive that, they cannot go today. TC to RENATO Hernandez at [facility] ( opt 1, ext [phone], ), left message of the above info, requesting facillitation. TC to Patrick to make aware.
== END 2021-03-08 00:30 | disposition home or self-care (01) | DRG 515 ==
LOC: ED 14:40 → MS3 15:54
PROVIDERS: Family Medicine; Nurse Practitioner Family; Orthopaedic Surgery; Admitting Provider Internal Medicine; Emergency Provider Emergency Medicine; PCP Preventive Medicine Occupational Medicine; Visit Provider Internal Medicine
PROC: 0J9700Z Drainage of Back Subcutaneous Tissue and Fascia with Drainage Device, Open Approach (ICD-10-PCS; CPT 63030; principal; 2021-03-04 08:30)
DX: T84.63XA Infection and inflammatory reaction due to internal fixation device of spine, initial encounter (principal); G06.1 Intraspinal abscess and granuloma; E43 Unspecified severe protein-calorie malnutrition; M46.26 Osteomyelitis of vertebra, lumbar region; N17.9 Acute kidney failure, unspecified; M46.46 Discitis, unspecified, lumbar region; B96.89 Other specified bacterial agents as the cause of diseases classified elsewhere; E86.0 Dehydration; D75.838 Other thrombocytosis; Z98.1 Arthrodesis status; Z79.891 Long term (current) use of opiate analgesic; Z79.899 Other long term (current) drug therapy; Z87.891 Personal history of nicotine dependence
CPT/HCPCS: 36415; 36569; 72158; 74177; 80048; 80053; 80202; 81001; 83735; 84145; 85025; 85652; 86140; 87040; 87070; 87075; 87205; 87426; 87640; 93005; 97162; 97530; 99285; A9575; J7030; J7040; J7050; J7120; Q9967; A4216; J2405

== ENCOUNTER 2021-03-23 19:00 | Inpatient (IN) | payer OTHER, SELFPAY ==
[2021-03-23 18:59] VITALS: BP 163/93; PULSE 90; RESP 18; TEMP 38.1; O2SAT 98
[2021-03-23 19:53] VITALS: BMI 31.6
[2021-03-23] MEDS: Ondansetron 4 MG/2 ML Vial IV (21:20)
[2021-03-23] MEDS: Acetaminophen 325 MG Tablet 650 MG PO (21:20)
[2021-03-23] MEDS: oxyCODONE 5 MG Tablet PO (21:21)
[2021-03-23 23:46] VITALS: BP 162/80; PULSE 68; RESP 18; TEMP 36.6; O2SAT 95
[2021-03-23 23:54] VITALS: BP 162/80; PULSE 68
[2021-03-23] MEDS: hydrALAZINE 20 MG/ML Vial 10 MG IV (23:54)
[2021-03-24] VITALS (9 sets, daily range): BP systolic 146–171; BP diastolic 70–82; PULSE 71–74; RESP 16–18; TEMP 36.5–37.2; O2SAT 94–98
[2021-03-24] MEDS: 0.9% Saline Lock 10 ML Syringe IV ×4 (00:21→21:48)
[2021-03-24] MEDS: Morphine 2 MG/ML Syringe IV (00:21)
--- NOTE | 2021-03-24 00:43 | PCS.PANDOC ---
PANDEMIC DOCUMENTATION INITIATED: Date: 11/28/2020 Time: 190
[2021-03-24] MEDS: oxyCODONE 5 MG Tablet PO ×2 (02:43→06:44)
[2021-03-24] MEDS: MELATONIN 3 MG TABLET PO (02:43)
[2021-03-24] MEDS: Acetaminophen 325 MG Tablet 650 MG PO ×2 (05:00→15:26)
[2021-03-24] MEDS: Ondansetron 4 MG/2 ML Vial IV ×2 (05:59→15:26)
[2021-03-24 07:33] LABS: Absolute Lymphocyte Count 0.82 X10^3/uL (0.83-4.51); Absolute Neutrophil Count 3.9 X10^3/uL (2.0-7.7); Eosinophil# 0.38 X10^3/uL; Eosinophils% 6.7 % (0-5); Hematocrit 30.3 % (40-54); Hemoglobin 10.3 g/dL (13.0-16.5); Lymphocyte # 0.82 X10^3/ul (0.83-4.51); Lymphocyte % 14.4 % (19-41); Mean Corpuscular Hgb 29.9 pg (27.0-32.0); Mean Corpuscular Volume 87.8 fL (80-94); Mean Platelet Vol. 9.5 fl (6.2-12.0); Monocyte# 0.59 X10^3/uL; Monocyte% 10.4 % (0-10); NRBC Flagged by Analyzer 0 % (0-5); Neutrophil # 3.87 X10^3/uL (2.7-7.7); Neutrophil % 68.1 % (47-70); Platelet Count 322 K/mm3 (150-450); RBC Distribution Width SD 38.5 fl (35.1-43.9); Red Blood Count 3.45 M/mm3 (4.6-6.2); White Blood Count 5.7 K/mm3 (4.4-11.0)
[2021-03-24 07:54] LABS: Anion Gap 8 (5-15); BUN 17 mg/dL (7-18); BUN/Creat Ratio 10.5 RATIO (10-20); Calcium,Total 8.5 mg/dL (8.5-10.1); Chloride 105 mmol/L (98-107); Creatinine, Serum 1.62 mg/dL (0.70-1.30); EST Glomerular Filtration Rate 47 mL/min (>60); Est Glom Filt Rate - Afr Amer 56 mL/min (>60); Estimated Creatinine Clearance 50.69 ml/min; Glucose 102 mg/dL (74-106); Potassium 3.9 mmol/L (3.5-5.1); Sodium Level 138 mmol/L (136-145)
[2021-03-24] MEDS: Enoxaparin 40 MG/0.4 ML Syringe SC (09:24)
--- NOTE | 2021-03-24 11:30 | CASEMGMT ---
AMRIT GROSS NOTE: TC to Pipe @ [facility] and notified him of pt's admission to [facility]. Pt is active w/them-has SN for IV atb. Avis CRUZN CELINE CM
--- NOTE | 2021-03-24 12:05 | MRI_ITS ---
STUDY: MR Spine Lumbar WO/W Contrast 03/24/2021 4:10 PM REASON FOR EXAM: Male, 60 years old. Back pain back pain s/p surgery, FEVER TECHNIQUE: MR Spine Lumbar WO/W Contrast Standardized fat and water weighted pulse sequences were obtained. with and without IV 20mL Dotarem Comparison: 03.03.21 FINDINGS: T12-L1: Normal endplates. Normal disc height, hydration and morphology. Normal bilateral facet joints. Normal central canal and bilateral lateral recesses. Normal bilateral intervertebral neural foramina. Normal lumbar lordosis. There is no substantial scoliosis. Normal conus medullaris that terminates at the L1. L1-2: Normal endplates. Normal disc height and morphology. Normal central canal and intervertebral neuroforamina. L2-3: Normal endplates. Normal disc height, hydration and morphology. Normal bilateral facet joints. Normal central canal and bilateral lateral recesses. Normal bilateral intervertebral neural foramina. L3-4: Normal endplates. Normal disc height, hydration and morphology. There is bilateral facet arthropathy. There is bilateral ligamentum flavum thickening. Mild narrowing of the bilateral lateral recesses but no spinal stenosis. L4-5: Loss of intervertebral disc height. There is endplate spondylosis of the vertebral body. Narrowing of the right intervertebral neuroforamina. Compression of exiting right L4 nerve root. There is bilateral facet arthropathy. There is bilateral ligamentum flavum thickening. Anterior fusion plate. Disc spacer in place. Enhancement of the L4 vertebral body. Enhancement of the soft tissue along the laminectomy site. Epidural empyema is no longer visualized. L5-S1: of intervertebral disc height. There is endplate spondylosis of the vertebral body. Narrowing of the bilateral intervertebral neuroforamina. Compression of exiting L5 nerve root. There is bilateral facet arthropathy. There is bilateral ligamentum flavum thickening. Anterior fusion plate. Disc spacer in place. Normal visualized sacral ala. MRI/Spine Lumbar W/WO Contrast IMPRESSION: Multilevel degenerative changes, as described above. The osteomyelitis at L4-5 appears worse. Improvement in the discitis at this level. Resolution of the epidural empyema. Electronically Signed: Jordan Ozuna MD at 16:19 EST , Service support ,
[2021-03-24] MEDS: Lactated Ringers 1,000 ML 100 ML IV (12:16)
--- NOTE | 2021-03-24 13:03 | PCM.PN.ORT ---
Objective Data Objective Data Vital Signs: Vital Signs Temp Pulse Resp BP Pulse Ox 98.4 F 72 16 157/70 H 94 03/24/21 12:18 03/24/21 09:20 03/24/21 09:20 03/24/21 09:20 03/24/21 09:27 Oxygen Delivery Method Room Air Weight: 220 lb 9.6 oz Body Mass Index (BMI) 31.6 Intake & Output: Intake and Output for Last 24 Hours 03/22/21 03/23/21 03/24/21 23:59 23:59 23:59 Intake Total 60 / 60 60 / 60 Balance 60 / 60 60 / 60 Lab / Micro Data Result Diagrams: 03/24/21 06:29 03/24/21 06:29 Labs: Laboratory Results - last 24 hr 03/24/21 06:29: WBC 5.7, RBC 3.45 L, Hgb 10.3 L, Hct 30.3 L, MCV 87.8, MCH 29.9, MCHC 34.0, RDW Std Deviation 38.5, RDW Coeff of Shamika 12.0, Plt Count 322, MPV 9.5, Immature Gran % (Auto) 0.400, Neut % (Auto) 68.1, Lymph % (Auto) 14.4 L, [place] % (Auto) 10.4 H, Eos % (Auto) 6.7 H, Baso % (Auto) 0.0, Absolute Neuts (auto) 3.9, Absolute Lymphs (auto) 0.82 L, Nucleated RBC % 0 03/24/21 06:29: Sodium 138, Potassium 3.9, Chloride 105, Carbon Dioxide 25.0, Anion Gap 8, BUN 17, Creatinine 1.62 H, Estim Creat Clear Calc 50.69, Est GFR (MDRD) Af Amer 56 L, Est GFR (MDRD) Non-Af 47 L, BUN/Creatinine Ratio 10.5, Glucose 102, Calcium 8.5 Procedure Criteria Elective Risks - COVID COVID Risk Discussion: Patient is seen on rounds. I discussed the case with Dr. Angelo. Dr. Angelo feels that he may be septic even though he was on antibiotics for all this time. Cultures are being done. In addition blood cultures were drawn at [facility] in [place] yesterday. I will keep an eye on those. His back pain is not too bad. He is scheduled for an MRI scan. We may have to do white cell scan. Dr. Craig will manage the antibiotic therapy.
--- NOTE | 2021-03-24 13:17 | ECHOCS_ITS ---
Reason For Study: Murmur Procedure This was a 2D Doppler, Color Flow transthoracic echocardiogram. The study was technically difficult. Patient scanned supine due to recent back surgery. Exam performed portable in patient room. Left Ventricle Normal left ventricle. The estimated ejection fraction is 55-60 %. Right Ventricle Normal right ventricle. Normal systolic function. Atria Normal left atrium. Normal right atrium. Mitral Valve The mitral valve is structurally normal. No prolapse or stenosis seen. Tricuspid Valve Normal tricuspid valve. Aortic Valve Normal aortic valve. Pulmonic Valve The pulmonic valve is not well visualized. Great Vessels Normal aortic root. Pericardium/Pleural No pericardial effusion. Medication Diluted definity 2ml given slow IV push to enhance endocardial definition. MMode/2D Measurements & Calculations LVIDd: 4.9 cm IVSd: 1.2 cm Ao root diam: 3.7 cm LVIDs: 3.1 cm LVPWd: 1.1 cm RVDd: 3.5 cm FS: 37.8 % LAV(MOD-bp): 46.0 ml LVAd ap4: 38.3 cm2 LVAd ap2: 31.2 cm2 LAV(MOD-bp) Indexed: 21.1 ml/m2 LVLd ap4: 8.5 cm LVLd ap2: 8.8 cm LAV(MOD-sp2): 47.6 ml EDV(MOD-sp4): 140.1 ml EDV(MOD-sp2): 93.1 ml LAV(MOD-sp4): 37.8 ml EDV(sp4-el): 146.0 ml EDV(sp2-el): 93.8 ml LVAs ap4: 16.9 cm2 LVAs ap2: 16.1 cm2 LVLs ap4: 6.9 cm LVLs ap2: 7.1 cm ESV(MOD-sp4): 34.4 ml ESV(MOD-sp2): 29.9 ml ESV(sp4-el): 35.4 ml ESV(sp2-el): 31.0 ml EF(MOD-sp4): 75.5 % EF(MOD-sp2): 67.9 % EF(sp4-el): 75.8 % SV(MOD-sp4): 105.7 ml SV(MOD-sp2): 63.3 ml SV(sp4-el): 110.7 ml LA A4 area: 16.1 cm2 LA dimension(2D): 3.6 cm RA A4 area: 12.9 cm2 Doppler Measurements & Calculations MV E max tyler: 82.0 cm/sec Lat Peak E' Tyler: 16.7 cm/sec Med Peak E' Tyler: 13.3 cm/sec MV A max tyler: 69.5 cm/sec E/E' lat: 4.9 E/E' med: 6.2 MV E/A: 1.2 Ao V2 max: 167.5 cm/sec LV V1 max: 135.2 cm/sec PA V2 max: 100.8 cm/sec Ao max P.2 mmHg LV V1 max P.3 mmHg ECHO/Echo Complete W/ Contrast Interpretation Summary The estimated ejection fraction is 55-60 %. Normal LV systolic function No prior echo to compare Ordering Physician: Sinan Angelo Referring Physician: Saul Lagos Performed By: Camila Wallace RDCS
--- NOTE | 2021-03-24 13:21 | EX.PCM.CON.G ---
HPI Consult Data Date of Consult: 03/24/21 HPI Narrative HPI Narrative: UMESH BAUER, is a 60 M who presents with night sweats ,fevers, nausea without vomiting and progressive weight loss. He has been on a high dose pain medicine for the last several weeks. He has a past medical history of mild gastroesophageal reflux, anemia and mild arthritis. Patient says that he was in good state of health until he developed worsening back pain. He knew that he had 2 abnormal discs in his back and it progressed to 3 abnormal disc in his back requiring surgery. Patient underwent surgery 03/04/[address] Jorge for patient was found to have a epidural abscess. Patient's bone graft and hardware was removed and irrigation was completed. Patient had Hemovac drain which was removed on 03/06 Dr. Jorge note reviewed. Dr. Craig recommended long-term, 6 weeks of IV antibiotics vancomycin and cefepime. The patient has right arm PICC line. -Lumbar spine MRI with and without contrast demonstrates postsurgical changes at L4 and L5 L5 and S1 along with concerns for acute osteomyelitis and discitis at L4-L5 with phlegmonous change in the right paravertebral soft tissues and epidural empyema posterior to L5 producing compression and thecal sac. I was asked to see the patient due to worsening nausea and inability to eat resulting in worsening weight loss. Patient says that he is so nauseous that he cannot think about eating or makes him more nauseated. Recently his vancomycin was stopped due to possible red man syndrome. When he came into the hospital he was discovered to have acute renal failure possibly secondary to vancomycin. He has not been taken any nonsteroidals. His biochemical analysis does not show any signs of leukocytosis but he is persistently febrile that has been responsive to Tylenol therapy. He denies any chest pain but he does have some shortness of breath. [facility] Medical History (Updated 03/24/21 @ 18:[address] Menon Friend, DO) Alcohol use Arthritis Back pain Former smoker Gastric reflux History of anal fissures History of pain when walking History of stress test History of trigger finger History of unsteady gait Leg cramps Low iron Marijuana use Migraine headache Normocytic anemia Thrombocytosis Wears glasses Home Medications magnesium 400 mg PO QHS 01/31/21 [History Last Taken 03/01/21] pantoprazole 40 mg PO QHS 03/03/21 [History Last Taken 03/01/21] pregabalin 75 mg capsule 225 mg PO QHS cap 03/15/21 [History Last Taken Unknown] ondansetron HCl 4 mg tablet 4 mg PO Q6H PRN 10 Days #40 tab 03/22/21 [Rx Last Taken Unknown] cefepime 2 g IV Q12H 03/23/21 [History Last Taken Unknown] hydromorphone 4 mg PO Q4H PRN 03/23/21 [History Last Taken Unknown] melatonin 5 mg PO QHS 03/23/21 [History Last Taken Unknown] sennosides-docusate sodium [Stool Softener-Stimulant Laxat] 2 tab PO BID 03/23/21 [History Last Taken Unknown] Allergy/AdvReac Type Severity Reaction Status Date / Time shellfish derived Allergy Swelling Verified 02/22/21 10:33 vancomycin Allergy Rash Verified 03/23/21 20:12 surgical tape Allergy Rash Uncoded 02/14/21 08:21 Family History Mother Lung cancer Father Dementia Surgical History H/O left knee surgery h/o lumbar spine surgery Hx of colonoscopy Hx of hemorrhoidectomy S/P lumbar fusion Social History Smoking Status: Former smoker alcohol intake: current alcohol intake frequency: holidays/special occasions only what type of physical activity do you participate in: weight training ROS Constitutional Constitutional: Reports excessive sweating, fever(s), lethargy, night sweats and poor appetite Gastrointestinal Gastrointestinal: Reports dyspepsia, early satiety and nausea Physical Exam Const alert General Appearance: cooperative Orientation / Consciousness: oriented to person HEENT hearing grossly normal bilaterally Head and Scalp: normal to inspection Face and Sinus: face symmetric Nose: external nose normal Mouth: oral and palatal mucosa normal Eyes conjunctivae normal General Eye: normal appearance of both eyes Neck full ROM General: normal visual inspection Lymph Lymphatic: no lymphadenopathy noted Chest inspection of chest normal and palpation of chest normal Chest: symmetrical chest wall rise Resp normal respiratory effort Effort and Inspection: able to speak in complete sentences Cardio regular rate GI non-distended Percussion: normal to percussion Rectal Exam: deferred Neuro Speech: speech normal Lab / Micro Data Result Diagrams: 03/24/21 06:29 03/24/21 06:29 Labs: Laboratory Results - last 24 hr 03/24/21 06:29: WBC 5.7, RBC 3.45 L, Hgb 10.3 L, Hct 30.3 L, MCV 87.8, MCH 29.9, MCHC 34.0, RDW Std Deviation 38.5, RDW Coeff of Shamika 12.0, Plt Count 322, MPV 9.5, Immature Gran % (Auto) 0.400, Neut % (Auto) 68.1, Lymph % (Auto) 14.4 L, B[place] % (Auto) 10.4 H, Eos % (Auto) 6.7 H, Baso % (Auto) 0.0, Absolute Neuts (auto) 3.9, Absolute Lymphs (auto) 0.82 L, Nucleated RBC % 0 03/24/21 06:29: Sodium 138, Potassium 3.9, Chloride 105, Carbon Dioxide 25.0, Anion Gap 8, BUN 17, Creatinine 1.62 H, Estim Creat Clear Calc 50.69, Est GFR (MDRD) Af Amer 56 L, Est GFR (MDRD) Non-Af 47 L, BUN/Creatinine Ratio 10.5, Glucose 102, Calcium 8.5 Assessment & Plan Assessment/Plan (1) LIZA (acute kidney injury): PLAN: I will put him on Mucomyst to hopefully help his kidneys recover if this is acute kidney injury. I will also put in 150 cc IV fluids. He may need more urine specific test and particularly an ultrasound of the kidneys. I will order a CPK to see if there is any sign of rhabdo from him not being able to move. (2) Sweating abnormality: PLAN: He will likely need a CT scan of chest abdomen pelvis. He is scheduled to get an MRI of the spine. I will order an ESR, CRP, D-dimer. (3) Nausea: PLAN: Nausea could be secondary to medication induced gastroparesis secondary to pain medicine. I will see if we have Relistor or Movantik. I will give him a scopolamine patch and likely some scheduled Reglan therapy. He may also need an upper endoscopy due to the weight loss and nausea, but I suspect it is from night sweats and not been able to eat. Charges/Coding Visit Charges Inpatient E&M: 85073 Init Hosp L3
[2021-03-24] MEDS: 0.9% Normal Saline 1,000 ML 150 ML IV ×2 (13:27→21:48)
[2021-03-24] MEDS: HYDROmorphone 2 MG TABLET 4 MG PO ×3 (13:27→21:51)
--- NOTE | 2021-03-24 13:35 | CON.PCM.ID_ITS ---
Assessment & Plan Assessment/Plan (1) Infection of lumbar spine: PLAN: Will order MRI, cont meropenem. Reviewed [place] records; covid neg 03/21. Bcx neg from 03/21 and 03/23. Will follow, thank you HPI Consult Data Date of Consult: 03/24/21 HPI Narrative HPI Narrative: UMESH BAUER, is a 60 M who presented as transfer from [place] with several weeks chills, sweats, weakness, loss of appetite, not feeling well. Admitted last month with deep surg site infection s/p L4-5 fusion 02/14/[address] Jorge. Taken to OR 03/[address] Jorge for epidural abscesses, hardware removal. Still with anterior cage in place. Surg cxs neg. Discharged on 6 weeks iv vanc/cefepime. Vanc stopped this past week with new rash and LIZA. Covid neg 03/21 at [place]. Admitted here, not feeling any better. Full ROS performed and neg except as noted above. No issues with anterior or posterior incisions. [facility] Medical History Alcohol use Arthritis Back pain Former smoker Gastric reflux History of anal fissures History of pain when walking History of stress test History of trigger finger History of unsteady gait Leg cramps Low iron Marijuana use Migraine headache Thrombocytosis Wears glasses Home Medications magnesium 400 mg PO QHS 01/31/21 [History Last Taken 03/01/21] pantoprazole 40 mg PO QHS 03/03/21 [History Last Taken 03/01/21] pregabalin 75 mg capsule 225 mg PO QHS cap 03/15/21 [History Last Taken Unknown] ondansetron HCl 4 mg tablet 4 mg PO Q6H PRN 10 Days #40 tab 03/22/21 [Rx Last Taken Unknown] cefepime 2 g IV Q12H 03/23/21 [History Last Taken Unknown] hydromorphone 4 mg PO Q4H PRN 03/23/21 [History Last Taken Unknown] melatonin 5 mg PO QHS 03/23/21 [History Last Taken Unknown] sennosides-docusate sodium [Stool Softener-Stimulant Laxat] 2 tab PO BID 03/23/21 [History Last Taken Unknown] Allergy/AdvReac Type Severity Reaction Status Date / Time shellfish derived Allergy Swelling Verified 02/22/21 10:33 vancomycin Allergy Rash Verified 03/23/21 20:12 surgical tape Allergy Rash Uncoded 02/14/21 08:21 Family History Mother Lung cancer Father Dementia Surgical History H/O left knee surgery h/o lumbar spine surgery Hx of colonoscopy Hx of hemorrhoidectomy Social History Smoking Status: Former smoker alcohol intake: current alcohol intake frequency: holidays/special occasions only what type of physical activity do you participate in: weight training Physical Exam Const alert and oriented x3 Constitutional Narrative: ill appearing General Appearance: cooperative HEENT normocephalic and head/scalp atraumatic Eyes PERRL and EOMs intact bilaterally Neck supple and No nodes Resp normal air movement and clear to auscultation bilaterally Cardio regular rate and regular rhythm GI soft to palpation, non-tender and non-distended Extremity no clubbing, cyanosis or edema Skin no rashes or lesions noted Neuro CN's II-XII intact bilaterally Lab / Micro Data Result Diagrams: 03/24/21 06:29 03/24/21 06:29 Labs: Laboratory Results - last 24 hr 03/24/21 06:29: WBC 5.7, RBC 3.45 L, Hgb 10.3 L, Hct 30.3 L, MCV 87.8, MCH 29.9, MCHC 34.0, RDW Std Deviation 38.5, RDW Coeff of Shamika 12.0, Plt Count 322, MPV 9.5, Immature Gran % (Auto) 0.400, Neut % (Auto) 68.1, Lymph % (Auto) 14.4 L, [place] % (Auto) 10.4 H, Eos % (Auto) 6.7 H, Baso % (Auto) 0.0, Absolute Neuts (auto) 3.9, Absolute Lymphs (auto) 0.82 L, Nucleated RBC % 0 03/24/21 06:29: Sodium 138, Potassium 3.9, Chloride 105, Carbon Dioxide 25.0, Anion Gap 8, BUN 17, Creatinine 1.62 H, Estim Creat Clear Calc 50.69, Est GFR (MDRD) Af Amer 56 L, Est GFR (MDRD) Non-Af 47 L, BUN/Creatinine Ratio 10.5, Glucose 102, Calcium 8.5
[2021-03-24 14:08] LABS: Erythrocyte Sedimentation Rate 37 mm/hr (0-20); LDH 383 U/L (87-241)
[2021-03-24 14:11] LABS: CPK Total, Creatine Kinase 63 U/L (39-308)
--- NOTE | 2021-03-24 14:24 | CASEMGMT ---
CELINE GROSS NOTE: To room to talk w/pt. Pt is out of room at this time, @ MRI. , Gato, is @ bedside. Gato states pt has taken all meds as prescribed since last admission and has went to all appts. She states he has not had much energy and is becoming very weak. She states he may be agreeable to going to a SNF @ discharge. She plans to talk w/him about this over the weekend. She states if pt does not go to SNF @ d/c, then they would want to continue w/[facility] for IV atb's and add therapy. Avis CRUZN CELINE CM
--- NOTE | 2021-03-24 14:25 | NURSING ---
pt transported off unit at this time via bed for MRI
--- NOTE | 2021-03-24 16:51 | HP.PCM.HOS_ITS ---
HPI - General General Date of Admission: 03/23/21 Date of Service: 03/24/21 Chief Complaint: Fever/chills HPI Narrative UMESH GATESORRLIGIA, is a 60 M who presented to [facility] yesterday on 03/23/2021 with a chief complaint of ongoing back pain, fevers, and chills as well as some intermittent nausea and decreased p.o. intake. Evidently he has had this ongoing for several weeks. He was admitted in February with a deep ramon gical site infection status post L4-L5 fusion on 02/14/[address] Jorge. He was taken to the OR on [address] Jorge for an epidural abscess and hardware removal. He evidently still has an anterior cage in place. He was discharged home on 03/07/2021 on 6 weeks of IV antibiotics of vancomycin and cefepime. His vancomycin had to be stopped due to a rash and LIZA. A COVID-19 test was done on 03 21 at [place]. Given his persistent pain, fevers and chills request for transfer from [facility] to here given his infectious disease and surgeon practice at this hospital was made and he was transferred late last evening. His CBC is overall unremarkable other than hemoglobin of 10.3 which appears to be baseline. He has no left shift but does have 6.7% eosinophils peripherally as well as an elevated sed rate and CRP. His LDH was elevated at 383. His CK was normal. His serum creatinine was elevated from baseline at 1.62 however his BUN is stable. It does appear that his serum creatinine fluctuates some but runs anywhere from 1-1.3. Infectious disease has requested lumbar spine MRI continue antibiotics with meropenem and blood cultures. All of this has been done at this time and consults have been placed to infectious disease and Dr. Jorge. [facility] Medical History (Updated 03/24/21 @ 16:[address] Linda Bentley, DO) Alcohol use Arthritis Back pain Former smoker Gastric reflux History of anal fissures History of pain when walking History of stress test History of trigger finger History of unsteady gait Leg cramps Low iron Marijuana use Migraine headache Normocytic anemia Thrombocytosis Wears glasses Home Medications magnesium 400 mg PO QHS 01/31/21 [History Last Taken 03/01/21] pantoprazole 40 mg PO QHS 03/03/21 [History Last Taken 03/01/21] pregabalin 75 mg capsule 225 mg PO QHS cap 03/15/21 [History Last Taken Unknown] ondansetron HCl 4 mg tablet 4 mg PO Q6H PRN 10 Days #40 tab 03/22/21 [Rx Last Taken Unknown] cefepime 2 g IV Q12H 03/23/21 [History Last Taken Unknown] hydromorphone 4 mg PO Q4H PRN 03/23/21 [History Last Taken Unknown] melatonin 5 mg PO QHS 03/23/21 [History Last Taken Unknown] sennosides-docusate sodium [Stool Softener-Stimulant Laxat] 2 tab PO BID 03/23/21 [History Last Taken Unknown] Allergy/AdvReac Type Severity Reaction Status Date / Time shellfish derived Allergy Swelling Verified 02/22/21 10:33 vancomycin Allergy Rash Verified 03/23/21 20:12 surgical tape Allergy Rash Uncoded 02/14/21 08:21 Family History Mother Lung cancer Father Dementia Surgical History H/O left knee surgery h/o lumbar spine surgery Hx of colonoscopy Hx of hemorrhoidectomy S/P lumbar fusion Social History Smoking Status: Former smoker alcohol intake: current alcohol intake frequency: holidays/special occasions only what type of physical activity do you participate in: weight training ROS Constitutional Constitutional: Reports anorexia, chills, fever(s), malaise and weakness; Denies change in weight, fatigue, night sweats or other Eyes Eyes: Denies blurry vision, change in eye color, change in vision, discharge from eye(s), double vision, erythema, eye pain, loss of vision or other ENT HEENT: Denies abnormal hearing, dysphagia, ear pain, epistaxis, headache(s), hearing loss, nasal congestion, nasal discharge, post nasal drip, sinus pressure, sore throat or other Cardiovascular Cardiovascular: Denies chest pain, claudication, dyspnea on exertion, edema, lightheadedness, orthopnea, palpitations, paroxysmal nocturnal dyspnea, rapid heart rate, syncope or other Respiratory/Chest Respiratory/Chest: Denies cough, dyspnea, excessive phlegm production, hemoptysis, productive cough, shortness of breath at rest, shortness of breath with exertion, wheezing or other Gastrointestinal Gastrointestinal: Reports nausea and vomiting; Denies abdominal pain, coffee ground emesis, constipation, diarrhea, dyspepsia, hematemesis, hematochezia, loose stools, melena or other Genitourinary Genitourinary: Denies burning urination, difficulty urinating, dysuria, hematuria, nocturia, urinary frequency, urinary hesitancy, urinary incontinence, urinary urgency or other Musculoskeletal Musculoskeletal: Reports back pain and myalgias; Denies arthralgias, joint pain, joint stiffness, joint swelling, neck pain or other Neurologic Neurologic: Denies abnormal gait, abnormal speech, confusion, disequilibrium, dizziness, focal weakness, headache(s), numbness, paresthesias, seizure-like activity, seizures, syncope, tingling, tremor(s) or other Psychiatric Psychiatric: Denies anxiety, depression, homicidal ideation, suicidal ideation or other Endocrine Endocrinology: Denies change in body appearance, cold intolerance, excessive sweating, heat intolerance, polydipsia, polyuria or other Hematologic/Lymphatic Hematologic/Lymphatic: Denies anemia, easy bleeding, easy bruising, lymphadenopathy or other Allergic/Immunologic Allergic/Immunologic: Denies rhinitis, hives, eczemia, asthma or other Vital Signs Vital Signs Vital Signs: 03/23/21 18:59 03/23/21 20:00 03/23/21 23:46 Temperature 100.5 F H 98 F Temperature Source Oral Oral Pulse Rate 90 68 Respiratory Rate 18 18 Respiratory Effort Normal Non-Labored Respiratory Depth Normal Respiratory Pattern Normal Blood Pressure 163/93 H 162/80 H Blood Pressure Mean 116 107 Blood Pressure Source Monitor Monitor Blood Pressure Position Semi-Fowlers Semi-Fowlers Blood Pressure Location Left Arm Left Arm Pulse Ox 98 95 Oxygen Delivery Method Room Air Room Air Room Air 03/23/21 23:54 03/24/21 02:40 03/24/21 02:41 Temperature 99 F Temperature Source Oral Pulse Rate 68 74 Respiratory Rate 18 Respiratory Effort Normal Non-Labored Respiratory Depth Normal Respiratory Pattern Normal Blood Pressure 162/80 H 148/74 H Blood Pressure Mean 98 Blood Pressure Source Monitor Blood Pressure Position Semi-Fowlers Blood Pressure Location Left Arm Pulse Ox 94 Oxygen Delivery Method Room Air Room Air 03/24/21 06:49 03/24/21 09:20 03/24/21 09:27 Temperature 98.4 F 97.7 F L Temperature Source Oral Oral Pulse Rate 72 Respiratory Rate 16 Respiratory Effort Respiratory Depth Respiratory Pattern Blood Pressure 157/70 H Blood Pressure Mean 99 Blood Pressure Source Monitor Blood Pressure Position Semi-Fowlers Blood Pressure Location Left Arm Pulse Ox 95 94 Oxygen Delivery Method Room Air Room Air 03/24/21 12:18 03/24/21 13:35 Temperature 98.4 F 98.1 F Temperature Source Oral Oral Pulse Rate 74 Respiratory Rate 16 Respiratory Effort Respiratory Depth Respiratory Pattern Blood Pressure 166/73 H Blood Pressure Mean 104 Blood Pressure Source Monitor Blood Pressure Position Semi-Fowlers Blood Pressure Location Left Arm Pulse Ox 95 Oxygen Delivery Method Room Air Weight Weight: 100.062 kg Body Mass Index (BMI) 31.6 Physical Exam Const alert, oriented x3 and no apparent distress Constitutional Narrative: Overweight upper middle-aged white male sitting up in a chair at the bedside, appears nontoxic but very anxious General Appearance: cooperative HEENT normocephalic, head/scalp atraumatic, hearing grossly normal bilaterally and moist oral mucous membranes HEENT Narrative: Mallampati 3, no thrush Eyes PERRL, EOMs intact bilaterally and conjunctivae normal Neck no lymphadenopathy, supple and no JVD Neck Narrative: Trachea midline, thyroid without enlargement Resp normal respiratory effort, no retractions, no use of accessory muscles and clear to auscultation bilaterally Auscultation: Negative for crackles, rales, rhonchi or wheezes Cardio regular rate, regular rhythm, S1 normal heart sound, S2 normal heart sound, no murmurs, no rub, no gallops, no clicks and no JVD GI normal to inspection, nondistended, normoactive bowel sounds, soft to palpation, non-tender and non-distended Extremity no clubbing, cyanosis or edema Peripheral Pulses: Yes pulses 2+ throughout Skin no rashes or lesions noted, skin turgor normal, no jaundice, no petechiae and no mottling Skin Narrative: Postoperative wound central lumbar spine with haven still in place, no erythema or drainage noted, mild surrounding tenderness but no fluctuance or induration Neuro oriented x3, CN's II-XII intact bilaterally, moves all extremities and no focal motor deficits Sensorium / Orientation: awake and alert Speech: speech normal Psych Mood & Affect: anxious Results Lab / Micro Data Result Diagrams: 03/24/21 06:29 03/24/21 06:29 Labs: Laboratory Results - last 24 hr 03/24/21 06:29: WBC 5.7, RBC 3.45 L, Hgb 10.3 L, Hct 30.3 L, MCV 87.8, MCH 29.9, MCHC 34.0, RDW Std Deviation 38.5, RDW Coeff of Shamika 12.0, Plt Count 322, MPV 9.5, Immature Gran % (Auto) 0.400, Neut % (Auto) 68.1, Lymph % (Auto) 14.4 L, [place] % (Auto) 10.4 H, Eos % (Auto) 6.7 H, Baso % (Auto) 0.0, Absolute Neuts (auto) 3.9, Absolute Lymphs (auto) 0.82 L, Nucleated RBC % 0 03/24/21 06:29: Sodium 138, Potassium 3.9, Chloride 105, Carbon Dioxide 25.0, Anion Gap 8, BUN 17, Creatinine 1.62 H, Estim Creat Clear Calc 50.69, Est GFR (MDRD) Af Amer 56 L, Est GFR (MDRD) Non-Af 47 L, BUN/Creatinine Ratio 10.5, Glucose 102, Calcium 8.5 03/24/21 06:29: ESR 37 H 03/24/21 06:29: Lactate Dehydrogenase 383 H, C-React Prot Ext Range 59.40 H 03/24/21 06:29: Total Creatine Kinase 63 Radiology Impression Lumbar Spine MRI 03/24/21 12:05 IMPRESSION: Multilevel degenerative changes, as described above. The osteomyelitis at L4-5 appears worse. Improvement in the discitis at this level. Resolution of the epidural empyema. Electronically Signed: Jordan Ozuna MD at 16:19 EST , Service support , Echocardiogram 03/24/21 13:17 Interpretation Summary The estimated ejection fraction is 55-60 %. Normal LV systolic function No prior echo to compare Ordering Physician: Sinan Angelo Referring Physician: Saul Lagos Performed By: Camila Wallace RDCS Assessment & Plan Assessment/Plan (1) Chills (without fever): (2) Infection of lumbar spine: (3) LIZA (acute kidney injury): PLAN: Lumbar spine infection ongoing fever and chills -Recent epidural abscess with washout and hardware removal on 03/04/2021 -Blood cultures pending -MRI spine pending -Continue meropenem per discussion with infectious disease -We will continue home hydromorphone/Lyrica for pain and scheduled bowel regimen -ID and orthopedic surgery consultation LIZA -Start IV fluids -Avoid nephrotoxins -If this does not improve with IV fluids would recommend further work-up as he does have a peripheral eosinophilia and vancomycin recently had to be stopped so this could be AIN from antibiotics -Repeat BMP in a.m. Persistent nausea with intermittent vomiting -Continue Protonix -GI has been consulted by orthopedic surgery -Continue antiemetics DVT prophylaxis -Lovenox 40 mg subcu daily CODE STATUS -Full code Charges/Coding Visit Charges Inpatient E&M: 19358 Init Hosp L3
[2021-03-24 17:19] LABS: D-Dimer Quantitative (DVT/PE) 2.85 FEU/ug/m (0.27-0.49)
[2021-03-24 17:24] LABS: Lactic Acid 0.8 mmol/L (0.4-1.9)
--- NOTE | 2021-03-24 17:38 | CASEMGMT ---
CELINE GROSS Readmission Review Note: Index admission: 02/14-02/18/21 for Lumbar fusion with return 03/03-03/08/21 with a postoperative infection/osteo, LIZA. Readmission: Intractable back pain with continued postoperative infection/osteo and repeat LIZA. Pt with chronic co-morbidities including arthritis, GERD, migraines, anemia, thrombocytosis, and marijuana and ETOH use. Pt had been independent at home and working prior to initial surgery. Pt does have a WW and lives w/his . On the previous admission pt had been discharged home with IV atb and HHC services through [facility]. Will continue to monitor and assist with discharge planning needs as identified. Cecilia Lopez RN CM
[2021-03-24] MEDS: Acetylcysteine (Mucomyst Oral) 20% SOLN 1200 MG PO (17:49)
[2021-03-24 18:38] LABS: ALB/GLOB Ratio 0.6 RATIO (0.9-2.4); AST(SGOT) 38 U/L (15-37); Alanine Aminotransfer ALT/SGPT 42 U/L (16-61); Albumin, Serum 2.5 g/dL (3.2-5.0); Alkaline Phosphatase 79 U/L (45-117); Bilirubin, Direct 0.06 mg/dL (0.00-0.30); Protein, Total 6.5 g/dL (6.4-8.2)
[2021-03-24 19:46] LABS: Anion Gap 5 (5-15); BUN 16 mg/dL (7-18); BUN/Creat Ratio 10.1 RATIO (10-20); Calcium,Total 8.2 mg/dL (8.5-10.1); Chloride 106 mmol/L (98-107); Creatinine, Serum 1.58 mg/dL (0.70-1.30); EST Glomerular Filtration Rate 48 mL/min (>60); Est Glom Filt Rate - Afr Amer 58 mL/min (>60); Estimated Creatinine Clearance 51.98 ml/min; Glucose 104 mg/dL (74-106); Potassium 4.1 mmol/L (3.5-5.1); Sodium Level 139 mmol/L (136-145)
[2021-03-24] MEDS: hydrALAZINE 20 MG/ML Vial 10 MG IV (21:48)
[2021-03-24] MEDS: Senna/Docusate Sodium 1 Tablet 2 TABLET PO (21:51)
[2021-03-24] MEDS: Ondansetron ODT 4 MG Tablet PO (21:51)
[2021-03-24] MEDS: Pregabalin 75 MG Capsule 225 MG PO (21:51)
[2021-03-24] MEDS: MELATONIN 10 MG TABLET 5 MG PO (21:51)
[2021-03-24] MEDS: Pantoprazole Sodium 40 MG Tablet PO (21:52)
[2021-03-25] VITALS (8 sets, daily range): BP systolic 133–165; BP diastolic 68–81; PULSE 81–106; RESP 18–20; TEMP 36.6–37.7; O2SAT 94–98
[2021-03-25] MEDS: Ondansetron 4 MG/2 ML Vial IV (01:53)
[2021-03-25] MEDS: HYDROmorphone 2 MG TABLET 4 MG PO ×4 (01:53→23:12)
[2021-03-25] MEDS: hydrALAZINE 20 MG/ML Vial 10 MG IV (01:54)
[2021-03-25] MEDS: 0.9% Normal Saline 1,000 ML 150 ML IV ×3 (04:21→18:29)
[2021-03-25 06:03] LABS: Absolute Lymphocyte Count 1.33 X10^3/uL (0.83-4.51); Absolute Neutrophil Count 4.5 X10^3/uL (2.0-7.7); Basophil# 0.01 X10^3/uL; Basophil% 0.1 % (0-1); Eosinophil# 0.43 X10^3/uL; Eosinophils% 6.4 % (0-5); Hematocrit 30.3 % (40-54); Hemoglobin 10.4 g/dL (13.0-16.5); Lymphocyte # 1.33 X10^3/ul (0.83-4.51); Lymphocyte % 19.9 % (19-41); Mean Corp Hgb Conc 34.3 g/dL (32-36); Mean Corpuscular Hgb 30.2 pg (27.0-32.0); Mean Corpuscular Volume 88.1 fL (80-94); Mean Platelet Vol. 9.1 fl (6.2-12.0); Monocyte# 0.42 X10^3/uL; Monocyte% 6.3 % (0-10); NRBC Flagged by Analyzer 0 % (0-5); Neutrophil # 4.48 X10^3/uL (2.7-7.7); Neutrophil % 66.9 % (47-70); POSITIVE MORPHOLOGY YES; Platelet Count 351 K/mm3 (150-450); RBC Distribution Width CV 12.2 % (11.6-14.6); RBC Distribution Width SD 39.2 fl (35.1-43.9); Red Blood Count 3.44 M/mm3 (4.6-6.2); White Blood Count 6.7 K/mm3 (4.4-11.0)
[2021-03-25 06:11] LABS: Differential Indicated SCAN CRITERIA MET
[2021-03-25 06:43] LABS: ALB/GLOB Ratio 0.6 RATIO (0.9-2.4); AST(SGOT) 22 U/L (15-37); Alanine Aminotransfer ALT/SGPT 36 U/L (16-61); Albumin, Serum 2.4 g/dL (3.2-5.0); Alkaline Phosphatase 72 U/L (45-117); Anion Gap 8 (5-15); BUN 16 mg/dL (7-18); BUN/Creat Ratio 9.8 RATIO (10-20); Calcium,Total 7.8 mg/dL (8.5-10.1); Chloride 106 mmol/L (98-107); Creatinine, Serum 1.64 mg/dL (0.70-1.30); Differential Comment SCANNED; EST Glomerular Filtration Rate 46 mL/min (>60); Est Glom Filt Rate - Afr Amer 56 mL/min (>60); Estimated Creatinine Clearance 50.08 ml/min; Globulin 3.7 g/dL (2.2-4.2); Glucose 102 mg/dL (74-106); Potassium 4.1 mmol/L (3.5-5.1); Protein, Total 6.1 g/dL (6.4-8.2); Sodium Level 139 mmol/L (136-145)
[2021-03-25] MEDS: Magnesium Chloride 64 MG Delay Rel.Tablet 128 MG PO (08:47)
[2021-03-25] MEDS: Enoxaparin 40 MG/0.4 ML Syringe SC (08:47)
[2021-03-25] MEDS: Senna/Docusate Sodium 1 Tablet 2 TABLET PO ×2 (08:49→21:12)
[2021-03-25] MEDS: Acetylcysteine (Mucomyst Oral) 20% SOLN 1200 MG PO (11:39)
[2021-03-25] MEDS: Acetaminophen 325 MG Tablet 650 MG PO (14:15)
--- NOTE | 2021-03-25 14:41 | PCM.PN.ORT ---
Objective Data Objective Data Vital Signs: Vital Signs Temp Pulse Resp BP Pulse Ox 99.9 F H 86 18 146/75 H 95 03/25/21 14:10 03/25/21 14:10 03/25/21 14:10 03/25/21 14:10 03/25/21 14:10 Oxygen Delivery Method Room Air Weight: 220 lb 9.6 oz Body Mass Index (BMI) 31.6 Intake & Output: Intake and Output for Last 24 Hours 03/23/21 03/24/21 03/25/21 23:59 23:59 23:59 Intake Total 60 / 60 1752.5 / 1752.5 2342.5 / 2342.5 Output Total 300 / 300 Balance 60 / 60 1452.5 / 1452.5 2342.5 / 2342.5 Lab / Micro Data Result Diagrams: 03/25/21 05:35 03/25/21 05:35 Labs: Laboratory Results - last 24 hr 03/24/21 06:29: Total Bilirubin 0.40, Direct Bilirubin 0.06, AST 38 H, ALT 42, Alkaline Phosphatase 79, Total Protein 6.5, Albumin 2.5 L, Globulin 4.0, Albumin/Globulin Ratio 0.6 L 03/24/21 16:31: D-Dimer Quant (PE/DVT) 2.85 H* 03/24/21 16:31: Lactic Acid 0.8 03/24/21 19:15: Sodium 139, Potassium 4.1, Chloride 106, Carbon Dioxide 28.0, Anion Gap 5, BUN 16, Creatinine 1.58 H, Estim Creat Clear Calc 51.98, Est GFR (MDRD) Af Amer 58 L, Est GFR (MDRD) Non-Af 48 L, BUN/Creatinine Ratio 10.1, Glucose 104, Calcium 8.2 L 03/25/21 05:35: WBC 6.7, RBC 3.44 L, Hgb 10.4 L, Hct 30.3 L, MCV 88.1, MCH 30.2, MCHC 34.3, RDW Std Deviation 39.2, RDW Coeff of Shamika 12.2, Plt Count 351, MPV 9.1, Immature Gran % (Auto) 0.400, Neut % (Auto) 66.9, Lymph % (Auto) 19.9, [place] % (Auto) 6.3, Eos % (Auto) 6.4 H, Baso % (Auto) 0.1, Absolute Neuts (auto) 4.5, Absolute Lymphs (auto) 1.33, Nucleated RBC % 0, Differential Comment SCANNED 03/25/21 05:35: Sodium 139, Potassium 4.1, Chloride 106, Carbon Dioxide 25.0, Anion Gap 8, BUN 16, Creatinine 1.64 H, Estim Creat Clear Calc 50.08, Est GFR (MDRD) Af Amer 56 L, Est GFR (MDRD) Non-Af 46 L, BUN/Creatinine Ratio 9.8 L, Glucose 102, Calcium 7.8 L, Total Bilirubin 0.20, AST 22, ALT 36, Alkaline Phosphatase 72, Total Protein 6.1 L, Albumin 2.4 L, Globulin 3.7, Albumin/Globulin Ratio 0.6 L 03/25/21 10:08: Ammonia 19.0 Radiography Diagnostic Testing: Radiology Impression Lumbar Spine MRI 03/24/21 12:05 IMPRESSION: Multilevel degenerative changes, as described above. The osteomyelitis at L4-5 appears worse. Improvement in the discitis at this level. Resolution of the epidural empyema. Electronically Signed: oJrdan Ozuna MD at 16:19 EST , Service support , Echocardiogram 03/24/21 13:17 Interpretation Summary The estimated ejection fraction is 55-60 %. Normal LV systolic function No prior echo to compare Ordering Physician: Sinan Angelo Referring Physician: Saul Lagos Performed By: Camila Wallace RDCS Procedure Criteria Elective Risks - COVID COVID Risk Discussion: Patient is seen on rounds. Long discussion with him and his regarding his care here. Discussed the case with Dr. Lizarraga for about 30 minutes today. He also discussed the case with Dr. Craig. Made an antibiotic change at least for a couple of days to see if there is any chance that the antibiotic may be causing the chills and sweating that he has been having. On a good note he felt significantly better this morning than he has in a long time. And another good point is that he really does not have very much back pain now that is improved dramatically also. Progress is slow but at least positive for now.
--- NOTE | 2021-03-25 16:17 | PN.HOSP_ITS ---
Subjective Subjective Patient was seen and examined today, I talked briefly with infectious diseases about his care. I also talked with orthopedic surgery concerning his recent MRI results. Orthopedic surgery does not know if the MRI is any worse in appearance on his previous MRI of his lumbar spine done in February 2021 due to the fact the patient has had surgery recently for removal of hardware from the surgical area. Patient continues to have complaints of chills and fever, after discussing his care with infectious diseases, I have elected to change him to Cubicin and stop his meropenem. Patient does not complain of any increased back pain, he continues to do complain of areas of rash over his arms and trunk. Objective Data Objective Data Vital Signs: Vital Signs Temp Pulse Resp BP Pulse Ox 99.9 F H 86 18 146/75 H 95 03/25/21 14:10 03/25/21 14:10 03/25/21 14:10 03/25/21 14:10 03/25/21 14:10 Oxygen Delivery Method Room Air Weight: 100.062 kg Body Mass Index (BMI) 31.6 Intake & Output: Intake and Output for Last 24 Hours 03/23/21 03/24/21 03/25/21 23:59 23:59 23:59 Intake Total 60 / 60 1752.5 / 1752.5 2342.5 / 2342.5 Output Total 300 / 300 Balance 60 / 60 1452.5 / 1452.5 2342.5 / 2342.5 Lab / Micro Data Result Diagrams: 03/25/21 05:35 03/25/21 05:35 Labs: Laboratory Results - last 24 hr 03/24/21 06:29: Total Bilirubin 0.40, Direct Bilirubin 0.06, AST 38 H, ALT 42, Alkaline Phosphatase 79, Total Protein 6.5, Albumin 2.5 L, Globulin 4.0, Albumin/Globulin Ratio 0.6 L 03/24/21 16:31: D-Dimer Quant (PE/DVT) 2.85 H* 03/24/21 16:31: Lactic Acid 0.8 03/24/21 19:15: Sodium 139, Potassium 4.1, Chloride 106, Carbon Dioxide 28.0, Anion Gap 5, BUN 16, Creatinine 1.58 H, Estim Creat Clear Calc 51.98, Est GFR (MDRD) Af Amer 58 L, Est GFR (MDRD) Non-Af 48 L, BUN/Creatinine Ratio 10.1, Glucose 104, Calcium 8.2 L 03/25/21 05:35: WBC 6.7, RBC 3.44 L, Hgb 10.4 L, Hct 30.3 L, MCV 88.1, MCH 30.2, MCHC 34.3, RDW Std Deviation 39.2, RDW Coeff of Shamika 12.2, Plt Count 351, MPV 9.1, Immature Gran % (Auto) 0.400, Neut % (Auto) 66.9, Lymph % (Auto) 19.9, [place] % (Auto) 6.3, Eos % (Auto) 6.4 H, Baso % (Auto) 0.1, Absolute Neuts (auto) 4.5, Absolute Lymphs (auto) 1.33, Nucleated RBC % 0, Differential Comment SCANNED 03/25/21 05:35: Sodium 139, Potassium 4.1, Chloride 106, Carbon Dioxide 25.0, Anion Gap 8, BUN 16, Creatinine 1.64 H, Estim Creat Clear Calc 50.08, Est GFR (MDRD) Af Amer 56 L, Est GFR (MDRD) Non-Af 46 L, BUN/Creatinine Ratio 9.8 L, G lucose 102, Calcium 7.8 L, Total Bilirubin 0.20, AST 22, ALT 36, Alkaline [place] sphatase 72, Total Protein 6.1 L, Albumin 2.4 L, Globulin 3.7, Albumin/Globulin Ratio 0.6 L 03/25/21 10:08: Ammonia 19.0 Radiography Diagnostic Testing: Radiology Impression Lumbar Spine MRI 03/24/21 12:05 IMPRESSION: Multilevel degenerative changes, as described above. The osteomyelitis at L4-5 appears worse. Improvement in the discitis at this level. Resolution of the epidural empyema. Electronically Signed: Jordan Ozuna MD at 16:19 EST , Service support , Echocardiogram 03/24/21 13:17 Interpretation Summary The estimated ejection fraction is 55-60 %. Normal LV systolic function No prior echo to compare Ordering Physician: Sinan Angelo Referring Physician: Saul Lagos Performed By: Camila Wallace RDCS Physical Exam Const alert, oriented x3, no apparent distress and healthy appearing General Appearance: cooperative, well kempt and well developed Orientation / Consciousness: awake, oriented to person, oriented to place and oriented to time Exam Limitations: no limitations HEENT normocephalic, head/scalp atraumatic and moist oral mucous membranes Head and Scalp: normocephalic Eyes PERRL, EOMs intact bilaterally and conjunctivae normal Neck nuchal rigidity, supple, no JVD, thyroid normal and no carotid bruits General: trachea midline Resp normal respiratory effort, no retractions, no use of accessory muscles and clear to auscultation bilaterally Auscultation: Negative for rales, rhonchi or wheezes Cardio regular rate, regular rhythm, S1 normal heart sound, S2 normal heart sound, no murmurs, no rub and no gallops GI normal to inspection, nondistended, normoactive bowel sounds, soft to palpation, non-tender and non-distended Extremity no clubbing, cyanosis or edema Skin Skin Narrative: There were several areas of rash over the patient's trunk and arms this rash is raised General Skin Exam: no breakdown Neuro oriented x3, CN's II-XII intact bilaterally, no focal motor deficits and no sensory deficits noted Sensorium / Orientation: awake and alert Speech: speech normal Psych thought process normal and affect normal Assessment & Plan Assessment/Plan (1) Infection of lumbar spine: PLAN: 1. Osteomyelitis of the lumbar spine-patient is now on Cubicin, I stopped his meropenem over concerns that he may be having allergic reaction from the meropenem. #2 fever and chills-patient's temperature is minimally elevated today, the exact etiology of the patient's symptoms are unknown at this time, again I have taken the step of change in the patient's antibiotic after conferring with infectious diseases. #3 chronic depression #4 degenerative disc disease of the lumbar spine Charges/Coding Visit Charges Inpatient E&M: 85945 Subs Hosp L2
[2021-03-25] MEDS: Pregabalin 75 MG Capsule 225 MG PO (21:11)
[2021-03-25] MEDS: Pantoprazole Sodium 40 MG Tablet PO (21:12)
[2021-03-25] MEDS: 0.9% Saline Lock 10 ML Syringe IV (21:13)
[2021-03-25] MEDS: MELATONIN 10 MG TABLET 5 MG PO (23:12)
[2021-03-26] MEDS: 0.9% Normal Saline 1,000 ML 150 ML IV ×4 (00:30→19:57)
[2021-03-26 05:25] VITALS: BP 153/75; PULSE 89; RESP 18; TEMP 36.9; O2SAT 95
[2021-03-26] MEDS: HYDROmorphone 2 MG TABLET 4 MG PO ×3 (05:33→22:36)
[2021-03-26 07:46] VITALS: BP 150/78; PULSE 88; RESP 16; TEMP 37.2; O2SAT 96
[2021-03-26] MEDS: Enoxaparin 40 MG/0.4 ML Syringe SC (09:27)
[2021-03-26] MEDS: Magnesium Chloride 64 MG Delay Rel.Tablet 128 MG PO (09:28)
[2021-03-26] MEDS: Senna/Docusate Sodium 1 Tablet 2 TABLET PO (09:28)
[2021-03-26 10:11] VITALS: O2SAT 96
[2021-03-26] MEDS: DiphenhydrAMINE 25 MG Capsule PO ×2 (14:01→22:36)
[2021-03-26 14:04] VITALS: BP 149/57; PULSE 85; RESP 16; TEMP 36.5; O2SAT 96
--- NOTE | 2021-03-26 14:11 | EX.PCM.PN.GI ---
Subjective Subjective Patient says that he feels about the same. He still hyperventilated fevers along with nausea. His appetite is still not very good. Objective Data Objective Data Vital Signs: Vital Signs Temp Pulse Resp BP Pulse Ox 97.7 F L 85 16 149/57 H 96 03/26/21 14:04 03/26/21 14:04 03/26/21 14:04 03/26/21 14:04 03/26/21 14:04 Oxygen Delivery Method Room Air Weight: 220 lb 9.6 oz Body Mass Index (BMI) 31.6 Intake & Output: Intake and Output for Last 24 Hours 03/24/21 03/25/21 03/26/21 23:59 23:59 23:59 Intake Total 1752.5 / 1752.5 3984.5 / 3984.5 3737.0 / 3737.0 Output Total 300 / 300 400 / 400 Balance 1452.5 / 1452.5 3584.5 / 3584.5 3737.0 / 3737.0 Lab / Micro Data Result Diagrams: 03/25/21 05:35 03/25/21 05:35 Physical Exam Const alert General Appearance: cooperative Orientation / Consciousness: oriented to person HEENT hearing grossly normal bilaterally Head and Scalp: normal to inspection Face and Sinus: face symmetric Nose: external nose normal Mouth: oral and palatal mucosa normal Eyes conjunctivae normal General Eye: normal appearance of both eyes Neck full ROM General: normal visual inspection Lymph Lymphatic: no lymphadenopathy noted Chest inspection of chest normal and palpation of chest normal Chest: symmetrical chest wall rise Resp normal respiratory effort Effort and Inspection: able to speak in complete sentences Cardio regular rate GI non-distended Percussion: normal to percussion Rectal Exam: deferred Neuro Speech: speech normal Gait (Neuro): normal gait Assessment & Plan Assessment/Plan (1) Nausea: PLAN: There is a possibility that he could have gastroparesis, gastritis, gastric ulcer, duodenal ulcer. We will perform upper endoscopy tomorrow. And his okay with this plan. (2) Abdominal pain: PLAN: Abdominal pain likely secondary to intestinal angina. Also the diagnosis could be narcotic bowel syndrome versus peptic ulcer disease. We will know more after of endoscopy tomorrow (3) Rash: PLAN: Rash possibly secondary to autoimmune phenomenon. I will send autoimmune labs and he may benefit from empiric steroid therapy if that is okay with infectious disease and orthopedic surgery along with the primary team (4) Fatigue: PLAN: Fatigue is improving as he is often sitting in a chair today and trying to. (5) Sweating abnormality: PLAN: Questionable osteomyelitis. Being treated with antibiotic therapy. Blood cultures thus far been negative and cultures for epidural abscess was also negative. Charges/Coding Visit Charges Inpatient E&M: 89625 Subs Hosp L3
--- NOTE | 2021-03-26 17:06 | PCM.PN.HOSP ---
Subjective Subjective Patient was seen and examined today, there is a diffuse red rash which is not raised and is in some areas punctate over the patient's arms, legs, and trunk area. Patient is afebrile today, he has not had any chills, he is complaining of itching with the rash. I have elected to place the patient on IV Solu-Medrol after talking with infectious diseases today. I also notified orthopedic surgery of this. Objective Data Objective Data Vital Signs: Vital Signs Temp Pulse Resp BP Pulse Ox 97.7 F L 85 16 149/57 H 96 03/26/21 14:04 03/26/21 14:04 03/26/21 14:04 03/26/21 14:04 03/26/21 14:04 Oxygen Delivery Method Room Air Weight: 100.062 kg Body Mass Index (BMI) 31.6 Intake & Output: Intake and Output for Last 24 Hours 03/24/21 03/25/21 03/26/21 23:59 23:59 23:59 Intake Total 1752.5 / 1752.5 3984.5 / 3984.5 3737.0 / 3737.0 Output Total 300 / 300 400 / 400 Balance 1452.5 / 1452.5 3584.5 / 3584.5 3737.0 / 3737.0 Lab / Micro Data Result Diagrams: 03/25/21 05:35 03/25/21 05:35 Micro: Microbiology 03/23/21 21:28 Blood Culture (Wb) - Anticubital Left Blood Culture - Preliminary No growth in 48 hours. 03/23/21 21:17 Blood Culture (Wb) - Anticubital Left Blood Culture - Preliminary No growth in 48 hours. Physical Exam Const alert, oriented x3 and no apparent distress General Appearance: cooperative, well kempt and well developed Orientation / Consciousness: awake, oriented to person, oriented to place and oriented to time HEENT normocephalic and moist oral mucous membranes Eyes PERRL, EOMs intact bilaterally and conjunctivae normal Neck nuchal rigidity, supple, no JVD and thyroid normal General: trachea midline Resp normal respiratory effort and clear to auscultation bilaterally Auscultation: Negative for rales, rhonchi or wheezes Cardio regular rate, regular rhythm, no murmurs, no rub and no gallops GI normal to inspection, nondistended, normoactive bowel sounds, soft to palpation, non-tender and non-distended Extremity no clubbing, cyanosis or edema Skin Skin Narrative: There are diffuse confluent areas of rash over the patient's arm, trunk, and legs. There are also smaller areas that are not confluent present over the arms and legs. These areas are not raised. General Skin Exam: no breakdown Neuro oriented x3, CN's II-XII intact bilaterally, no focal motor deficits and no sensory deficits noted Sensorium / Orientation: awake and alert Speech: speech normal Psych thought process normal and affect normal Assessment & Plan Assessment/Plan (1) Infection of lumbar spine: PLAN: 1. Osteomyelitis of the lumbar spine-patient is now on Cubicin, infectious diseases will see the patient tomorrow #2 fever and chills-patient had no episodes of fever or chills today, the etiology of the symptoms are unknown at this time #3 chronic depression #4 degenerative disc disease of the lumbar spine #5 suspected drug rash-patient was placed on IV Solu-Medrol 20 mg IV every 8 hours, he was also placed on Benadryl. I believe is possible that the meropenem caused an allergic reaction. If this rash is not improved, patient may need consultation with dermatology which is usually not available here at the hospital. Charges/Coding Visit Charges Inpatient E&M: 63132 Subs Hosp L2
[2021-03-26 20:02] VITALS: BP 155/75; PULSE 84; RESP 16; TEMP 37.3; O2SAT 98
[2021-03-26] MEDS: MELATONIN 10 MG TABLET 5 MG PO (22:35)
[2021-03-26] MEDS: Pregabalin 75 MG Capsule 225 MG PO (22:35)
[2021-03-26] MEDS: 0.9% Saline Lock 10 ML Syringe IV (22:36)
[2021-03-26] MEDS: Pantoprazole Sodium 40 MG Tablet PO (22:36)
[2021-03-26] MEDS: Acetaminophen 325 MG Tablet 650 MG PO (22:39)
[2021-03-26 22:45] VITALS: BMI 31.6
[2021-03-27] VITALS (11 sets, daily range): BP systolic 136–178; BP diastolic 75–87; PULSE 72–80; RESP 16–18; TEMP 36.1–36.8; O2SAT 96–100
--- NOTE | 2021-03-27 | EGD_PTH ---
PATIENT: UMESH BAUER LOC: [facility] U#:[id number] AGE/SX: 60/M ROOM: [facility] RE03/23/[address]: Dr. Chapo Rivera MD : 1960 BED: 1 DIS: 03/28/2021 SPEC #: [id number] RECD: 03/27/21 14:54 STATUS: DAMARIS REKayleigh #: [id number] REJI: 03/27/21 00:[address]: Sinan Angelo DEPT: SURGICAL PATHOLOGY RECD BY: Pepe Moore ENTERED: 03/28/21 10:29 SP TYPE: EGD BIOPSY OTHR DR: MD Dr. Robby Denney, MD Dr. Sinan Nelson Dr., DO MD Dr. Saul Woodson, Tissues: A - Duodenum, NOS B - Stomach, NOS C - Esophageal mucous membrane Procedures: Surgery Specimen Level IV Comments: @ Ordering doctor for SUIV edited from to @ by JUDIT at 03/28/21 1513 @ Submitting doctor edited from to @ by SARMADOD at 03/28/21 1513 HEADER OPERATION: [place] PRE-[place] DIAGNOSIS: Abdominal pain, nausea TISSUE SUBMITTED: A ? Duodenal biopsies, B ? Greater curvature biopsies, C ? Random esophageal biopsies MICROSCOPIC DIAGNOSIS A. Duodenum, biopsy: No pathologic change. B. Stomach, greater curvature, biopsy: Minimal chronic inflammation. C. Esophagus, biopsy: Fragment of gastric mucosa with mild chronic inflammation. Fragments of benign squamous mucosa. AM:andrey 03/29/2021 MICROSCOPIC DESCRIPTION Slides are reviewed. GROSS DESCRIPTION A - Received in fixative is one container labeled with the patient's name and designated duodenal biopsy. The specimen consists of multiple irregular fragments of light smith soft tissue that in aggregate measure 1 x 0.3 x 0.1 cm. The specimen is totally submitted in one cassette. B - Received in fixative is one container labeled with the patient's name and designated greater curvature stomach biopsy. The specimen consists of multiple irregular fragments of light smith soft tissue that in aggregate measure 2 x 0.2 x 0.1 cm. The specimen is totally submitted in one cassette. C - Received in fixative is one container labeled with the patient's name and designated random esophageal biopsy. The specimen consists of multiple irregular fragments of light smith soft tissue that in aggregate measure 1 x 0.3 x 0.1 cm. The specimen is totally submitted in one cassette. / AM:andrey 03/28/21 TC:3 CPT: 09003 x3
[2021-03-27] MEDS: 0.9% Normal Saline 1,000 ML 150 ML IV ×4 (02:18→20:24)
[2021-03-27] MEDS: HYDROmorphone 2 MG TABLET 4 MG PO ×2 (07:23→20:23)
--- NOTE | 2021-03-27 09:24 | PN.HOSP_ITS ---
Subjective Subjective Patient developed rash in the home probably from vancomycin. Patient has been taking Dilaudid 4 mg every 4 hours at home and feels tired muscle aches, abdominal pain, probably narcotic induced pain Objective Data Objective Data Vital Signs: Vital Signs Temp Pulse Resp BP Pulse Ox 97.9 F 79 16 178/87 H 97 03/27/21 07:30 03/27/21 07:30 03/27/21 07:30 03/27/21 07:30 03/27/21 07:30 Oxygen Delivery Method Room Air Weight: 220 lb 9.6 oz Body Mass Index (BMI) 31.6 Intake & Output: Intake and Output for Last 24 Hours 03/25/21 03/26/21 03/27/21 23:59 23:59 23:59 Intake Total 3984.5 / 3984.5 5537.0 / 5537.0 1952.5 / 195.5 Output Total 400 / 400 Balance 3584.5 / 3584.5 5537.0 / 5537.0 1952.5 / 1951.5 Lab / Micro Data Result Diagrams: 03/25/21 05:35 03/25/21 05:35 Micro: Microbiology 03/23/21 21:28 Blood Culture (Wb) - Anticubital Left Blood Culture - Preliminary No growth in 48 hours. 03/23/21 21:17 Blood Culture (Wb) - Anticubital Left Blood Culture - Preliminary No growth in 48 hours. Physical Exam Narrative General: Alert, Oriented x3, Cooperative HEENT: Atraumatic, PERRLA, EOMI, Normocephalic Oral: No Gingival or Mucosal Lesions/ Ulcerations Neck: Supple, No JVD, Negative Carotid Bruits Lungs: Air entry diminished in bilateral lung bases. No crepitation/rhonchi Cardiovascular: Regular rate, Regular Rhythm, Normal S1, Normal S2, No murmurs Abdomen: Bowel Sounds Present, Soft, Non Tender, Non-Distended : No renal angle tenderness. No suprapubic tenderness. Extremities: No edema, Capillary Refill Less than 3 Seconds Skin: Diffuse maculopapular rash which is crusted and dark. Fading out. Musculoskeletal/spine: [place] are intact. No paraspinal/operative re gion tenderness. Neurological: Cranial nerves II-XII grossly intact, DTR 2+/4 Psych/Mental Status: Normal Affect, Appropriate. Assessment & Plan Assessment/Plan (1) Infection of lumbar spine: PLAN: 1. Osteomyelitis of the lumbar spine-patient is now on Cubicin. Patient seen by ID. #2 Nausea/abdominal pain probably GERD/gastritis duodenitis or narcotic bowel syndrome: Patient had EGD which showed LA grade 1 reflux esophagitis, gastritis and do adenopathy which were biopsied. Recommended to continue PPI. Follow-up in GI office. Discussed about reducing the dose of Dilaudid to 2 mg every 4 hourly as needed and gradually wean off to discontinue #3 chronic depression #4 degenerative disc disease of the lumbar spine with infected hardware and epidural abscess: Patient underwent surgery 03/04/[address] Jorge for patient was found to have a epidural abscess. Patient's bone graft and hardware was removed and irrigation was completed. Patient had Hemovac drain which was removed on 03/06. Currently, surgical site does not show signs and symptoms of infection. [place] intact #5 suspected drug rash-patient was placed on IV Solu-Medrol 20 mg IV every 8 hours, he was also placed on Benadryl. I believe is possible that the meropenem caused an allergic reaction. If this rash is not improved, patient may need consultation with dermatology which is usually not available here at the hospital. Charges/Coding Visit Charges Inpatient E&M: 98324 Subs Hosp L2
--- NOTE | 2021-03-27 10:37 | NURSING ---
pt to endo
--- NOTE | 2021-03-27 11:23 | OP.EGD_ITS ---
Patient Name: Yoseph Franco Procedure Date: 03/27/2021 11:03 AM Date of : 1960 Age: 60 Procedure: Upper GI endoscopy Indications: Dyspepsia Providers: Sinan Angelo DO Medicines: See the Anesthesia note for documentation of the administered medications Patient Profile: This is a 60 year old male. Refer to note in patient chart for documentation of history and physical. Patient has symptoms of chronic nausea. Complications: No immediate complications. Procedure: Pre-Anesthesia Assessment: - Prior to the procedure, a History and Physical was performed, and patient medications and allergies were reviewed. The patient is competent. The risks and benefits of the procedure and the sedation options and risks were discussed with the patient. All questions were answered and informed consent was obtained. Patient identification and proposed procedure were verified by the physician in the pre-procedure area. Mental Status Examination: alert and oriented. Airway Examination: normal oropharyngeal airway and neck mobility. Respiratory Examination: clear to auscultation. CV Examination: normal. Prophylactic Antibiotics: The patient does not require prophylactic antibiotics. Prior Anticoagulants: The patient has taken no previous anticoagulant or antiplatelet agents. ASA Grade Assessment: II - A patient with mild systemic disease. After reviewing the risks and benefits, the patient was deemed in satisfactory condition to undergo the procedure. The anesthesia plan was to use moderate sedation / analgesia (conscious sedation). Immediately prior to administration of medications, the patient was re-assessed for adequacy to receive sedatives. The heart rate, respiratory rate, oxygen saturations, blood pressure, adequacy of pulmonary ventilation, and response to care were monitored throughout the procedure. The physical status of the patient was re-assessed after the procedure. After obtaining informed consent, the endoscope was passed under direct vision. Throughout the procedure, the patient's blood pressure, pulse, and oxygen saturations were monitored continuously. The gastroscope was introduced through the mouth, and advanced to the second part of duodenum. The upper GI endoscopy was accomplished without difficulty. The patient tolerated the procedure well. Moderate Sedation: Moderate (conscious) sedation was administered by the endoscopy nurse and supervised by the endoscopist. The patient's oxygen saturation, heart rate, blood pressure and response to care were monitored. Total physician intraservice time was 15 minutes. Scope In: 11:13:35 AM Scope Out: 11:18:41 AM Total Procedure Duration Time 0 hours 5 minutes 6 seconds Findings: LA Grade A (one or more mucosal breaks less than 5 mm, not extending between tops of 2 mucosal folds) esophagitis with no bleeding was found 34 to 35 cm from the incisors. Biopsies were taken with a cold forceps for histology. Verification of patient identification for the specimen was done. Estimated blood loss was minimal. Patchy mild inflammation characterized by erythema was found on the greater curvature of the stomach. Biopsies were taken with a cold forceps for histology. Verification of patient identification for the specimen was done. Estimated blood loss was minimal. Patchy mildly erythematous mucosa without active bleeding and with no stigmata of bleeding was found in the first portion of the duodenum. Biopsies were taken with a cold forceps for histology. Estimated blood loss: none. Impression: - LA Grade A reflux esophagitis. Biopsied. - Gastritis. Biopsied. - Erythematous duodenopathy. Biopsied. Recommendation: - [facility]. - Resume previous diet. - Continue present medications. - Await pathology results. - Return to my office in 2 weeks. Procedure Code(s): --- Professional --- 20614, Esophagogastroduodenoscopy, flexible, transoral; with biopsy, single or multiple G0500, Moderate sedation services provided by the same physician or other qualified health patient care representative performing a gastrointestinal endoscopic service that sedation supports, requiring the presence of an independent trained observer to assist in the monitoring of the patient's level of consciousness and physiological status; initial 15 minutes of intra-service time; patient age 5 years or older (additional time may be reported with 31596, as appropriate) CPT copyright 2017 [employer]. All rights reserved. The codes documented in this report are preliminary and upon supervisor winter review may be revised to meet current compliance requirements. Sinan Angelo DO 03/27/2021 11:23:12 AM This report has been signed electronically. Number of Addenda: 1 Note Initiated On: 03/27/2021 11:03 AM Addendum Number: 1 Addendum Date: 12/20/2021 7:08:55 AM MAC was used instead of moderate sedation for the patient. Sinan Angelo DO 12/20/2021 7:08:59 AM This report has been signed electronically.
--- NOTE | 2021-03-27 11:24 | OP.CCLET_ITS ---
12/20/2021 Saul Lagos [address] [place] [address] Re : Upper GI endoscopy procedure for Yoseph Mcmorrow Dear Dr. Lagos This procedure was performed on Saturday, March 27, 2021. My impressions and recommendations are as follows: Impressions : - LA Grade A reflux esophagitis. Biopsied. - Gastritis. Biopsied. - Erythematous duodenopathy. Biopsied. Recommendations : - [facility]. - Resume previous diet. - Continue present medications. - Await pathology results. - Return to my office in 2 weeks. My findings are described in the full procedure note, which is enclosed. If I can be of further assistance, please feel free to contact me at . Sincerely, Sinan Friend, 03/27/2021 11:23:12 AM This report has been signed electronically.
[2021-03-27] MEDS: DiphenhydrAMINE 25 MG Capsule PO (16:46)
[2021-03-27] MEDS: Pregabalin 75 MG Capsule 225 MG PO (20:22)
[2021-03-27] MEDS: MELATONIN 10 MG TABLET 5 MG PO (20:22)
[2021-03-27] MEDS: Senna/Docusate Sodium 1 Tablet 2 TABLET PO (20:22)
[2021-03-27] MEDS: Pantoprazole Sodium 40 MG Tablet PO (20:24)
--- NOTE | 2021-03-27 21:28 | PCM.PN.ID ---
Physical Exam Narrative Feeling better this afternoon, walking the halls. Const alert and no apparent distress General Appearance: cooperative Resp normal air movement and clear to auscultation bilaterally Cardio regular rate and regular rhythm GI normal to inspection, nondistended, normoactive bowel sounds Skin Skin Narrative: diffuse rash ID ID: Route of nutrition/ use of supplements: [] Nutritional Intake: [] IV Site: [] Deleon Catheter: [] Assessment & Plan Assessment/Plan (1) Infection of lumbar spine: PLAN: Reviewed MRI. Diffuse rash. Now on dapto. Will see if sweats and rash improve with change in abx and steroids. Will follow
[2021-03-28 02:15] VITALS: BP 159/81; PULSE 68; RESP 16; TEMP 36.5; O2SAT 96
[2021-03-28] MEDS: 0.9% Normal Saline 1,000 ML 150 ML IV ×2 (03:09→09:49)
--- NOTE | 2021-03-28 07:25 | DS.PCM_ITS ---
Providers Date of Admission: 03/23/21 Primary Care Physician: Dr. Saul Lagos, Consultations 03/23/21 20:06 Consult: General Surgery Routine Consulting Provider: Robby Jorge Reason for Consult: Back surgery with postop infection EMERGENT Consult: No MD Notified: Yes Date Notified: 03/24/21 Time Notified: 07:04 Method of Notification: Verbal Consult: Infectious Disease Routine Consulting Provider: Saul Craig Reason for Consult: Back surgery with post-op infection EMERGENT Consult: No Notified: Yes Date Notified: 03/24/21 Time Notified: 07:33 Method of Notification: Text 03/24/21 07:06 Consult: Gastroenterology Routine Consulting Provider: Sinan Angelo Reason for Consult: suspected gastric ulcer EMERGENT Consult: No Notified: Yes Date Notified: 03/24/21 Time Notified: 07:15 Method of Notification: Verbal Reason For Visit: FEVER BACK PAIN Diagnosis Discharge Diagnosis (1) Infection of lumbar spine: Status: Acute Code(s): M46.26 - Osteomyelitis of vertebra, lumbar region Medications at Discharge Home Medications ondansetron HCl 4 mg tablet 4 mg PO Q6H PRN 10 Days #40 tab 03/22/21 melatonin 5 mg PO QHS 03/23/21 sennosides-docusate sodium [Stool Softener-Stimulant Laxat] 2 tab PO BID 03/23/21 daptomycin [Cubicin] 600 mg IV Q24H #18 ea 03/28/21 diphenhydramine HCl [Banophen] 25 mg PO 4X/DAY PRN PRN #0 cap 03/28/21 hydromorphone [Dilaudid] 2 mg PO Q6H PRN 10 Days #40 tab 03/28/21 magnesium 250 mg PO QHS #0 tab 03/28/21 pantoprazole 40 mg PO BID #60 tab 03/28/21 prednisone 40 mg PO BREAKFAST #10 tab 03/28/21 pregabalin [Lyrica] 150 mg PO QHS #0 cap 03/28/21 Hospital Course Summary of Care Provided Hospital Course: This 60-year-old gentleman was admitted as transfer from [facility] for ongoing back pain, fever, chills, intermittent nausea and decreased oral intake for several weeks. Lumbar spine MRI was done on 12/10 reported osteomyelitis at L4-5 and appears worse but improvement in discitis at this level. Resolution of epidural empyema. Multilevel degenerative changes. 1. Osteomyelitis of the lumbar spine-patient is now on Cubicin. Patient seen by ID. He wrote the prescription for Cubicin/daptomycin. #2 Nausea/abdominal pain probably GERD/gastritis duodenitis or narcotic bowel syndrome: Patient had EGD which showed LA grade 1 reflux esophagitis, gastritis and do adenopathy which were biopsied. Recommended to continue PPI. Follow-up in GI office. Discussed with patient and his about reducing the dose of Dilaudid to 2 mg every 4 hourly as needed and gradually wean off to discontinue. 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 Jorge for patient was found to have a epidural abscess. Patient's bone graft and hardware was removed and irrigation was completed. Patient had Hemovac drain which was removed on 03/06. Currently, surgical site does not show signs and symptoms of infection. #5 suspected drug rash-patient was placed on IV Solu-Medrol 20 mg IV every 8 hours, he was also placed on Benadryl. I believe is possible that the meropenem caused an allergic reaction. If this rash is not improved, patient may need consultation with dermatology which is usually not available here at the hospital. Physical Exam Narrative Seen and examined It seems patient might have mild symptoms of opioid withdrawal as he gets sweating, fatigue chills but no objective fever on temperature monitoring. Discussed with the patient and his to avoid Dilaudid. Patient walked around the nursing station does not much pain lumbar spine tenderness. General: Alert, Oriented x3, Cooperative HEENT: Atraumatic, PERRLA, EOMI, Normocephalic Oral: No Gingival or Mucosal Lesions/ Ulcerations Neck: Supple, No JVD, Negative Carotid Bruits Lungs: Air entry diminished in bilateral lung bases. No crepitation/rhonchi Cardiovascular: Regular rate, Regular Rhythm, Normal S1, Normal S2, No murmurs Abdomen: Bowel Sounds Present, Soft, Non Tender, Non-Distended : No renal angle tenderness. No suprapubic tenderness. Extremities: No edema, Capillary Refill Less than 3 Seconds Skin: Diffuse maculopapular rash which is crusted and dark. Fading out. Musculoskeletal/spine: Surgical haven are intact. No paraspinal/operative region tenderness. Neurological: Cranial nerves II-XII grossly intact, DTR 2+/4 Psych/Mental Status: Normal Affect, Appropriate. Weight / BMI Weight Weight: 220 lb 9.6 oz Body Mass Index (BMI) 31.6 ABG / Lab / Microbiology Data Result Diagrams: 03/25/21 05:35 03/28/21 08:40 Microbiology: Microbiology 03/23/21 21:28 Blood Culture (Wb) - Anticubital Left Blood Culture - Preliminary No growth in 48 hours. 03/23/21 21:17 Blood Culture (Wb) - Anticubital Left Blood Culture - Preliminary No growth in 48 hours. D/C Instructions Discharge Diet: Low fat / Low cholesterol Weight Bearing Status: Weight bearing as tolerated Call your doctor if you observe: Fever of 101 or Higher, Coldness, Increased Pain, Numbness or Tingling, Change in Color, Inability to urinate, Inability to have a bowel movement, Shortness of breath, Dizziness, Fainting spells, Swelling in the ankles, Chest pain, Prolonged hiccupping, Increased palpitations (irregular heartbeat), Calf discomfort and Uncontrolled pain Meaningful Use Info Meaningful Use Diagnoses (Choose all that apply): None applicable Discharge Plan Admission Admit Date/Time: 03/23/21 19:00 Primary Reason for Your Visit: Abd pain, LIZA Attending Provider: Chapo Rivera Primary Care Provider: Saul Lagos Consulting Providers: Robby Jorge ; Saul Craig ; Friend,Sinan Instructions Additional Instructions / Restrictions: Advised to use moisturizer or calmoseptine ointment 3 times daily over the skin. Advised to avoid Dilaudid or Valium 2 mg for severe pain because he has high potential for opioid dependence. Discussed with the patient patient and his . Discharge Orders/Prescriptions Prescriptions: New daptomycin [Cubicin] 500 mg recon soln 600 mg IV Q24H Qty: 18 RF: 0 diphenhydramine HCl [Banophen] 25 mg Capsule 25 mg PO 4X/DAY PRN PRN (Reason: Itching) Qty: 0 RF: 0 prednisone 20 mg Tablet 40 mg PO BREAKFAST Qty: 10 RF: 0 Continued ondansetron HCl [Zofran] 4 mg tablet 4 mg PO Q6H PRN (Reason: nausea and vomiting) 10 Days Qty: 40 RF: 0 melatonin 5 mg Tablet 5 mg PO QHS RF: 0 sennosides-docusate sodium [Stool Softener-Stimulant Laxat] 8.6-50 mg tablet 2 tab PO BID RF: 0 hydromorphone [Dilaudid] 2 mg tablet 2 mg PO Q6H PRN (Reason: pain) 10 Days Qty: 40 RF: 0 Changed pantoprazole 40 mg tablet,delayed release (DR/EC) 40 mg PO BID Qty: 60 RF: 1 magnesium 250 mg Tablet 250 mg PO QHS Qty: 0 RF: 0 pregabalin [Lyrica] 75 mg capsule 150 mg PO QHS Qty: 0 RF: 0 Discontinued hydromorphone 4 mg Tablet 4 mg PO Q4H PRN (Reason: pain) RF: 0 cefepime 2 gram recon soln 2 g IV Q12H RF: 0 Referrals / Follow Up: Robby Jorge DO [STAFF PHYSICIAN] - Within 1 Month Sinan Angelo DO [STAFF PHYSICIAN] - Within 2 Weeks (Follow-up EGD biopsy) Saul Craig MD [STAFF PHYSICIAN] - Within 1 Month (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
[2021-03-28 07:32] VITALS: BP 172/84; PULSE 54; RESP 16; TEMP 36.4; O2SAT 98
[2021-03-28 09:39] LABS: Anion Gap 9 (5-15); BUN 21 mg/dL (7-18); BUN/Creat Ratio 15.8 RATIO (10-20); Calcium,Total 8.2 mg/dL (8.5-10.1); Chloride 113 mmol/L (98-107); Creatinine, Serum 1.33 mg/dL (0.70-1.30); EST Glomerular Filtration Rate 58 mL/min (>60); Est Glom Filt Rate - Afr Amer 71 mL/min (>60); Estimated Creatinine Clearance 61.75 ml/min; Glucose 124 mg/dL (74-106); Magnesium 2.2 mg/dL (1.6-2.6); Phosphorus 2.4 mg/dL (2.5-4.9); Potassium 3.8 mmol/L (3.5-5.1); Sodium Level 142 mmol/L (136-145)
[2021-03-28] MEDS: Pantoprazole Sodium 40 MG Tablet PO (09:49)
[2021-03-28] MEDS: Enoxaparin 40 MG/0.4 ML Syringe SC (09:49)
[2021-03-28] MEDS: Magnesium Chloride 64 MG Delay Rel.Tablet 128 MG PO (09:49)
--- NOTE | 2021-03-28 10:03 | CASEMGMT ---
Addendum entered by Betty Ramirez 03/28/21 14:11: TC to [facility] pharmacist Darío who states pt can discard previous IV antibiotics in the trash without emptying the liquid in the sink. Put this information in pt dc plan as he had asked this question. Addendum entered by Betty Ramirez 03/28/21 14:02: Faxed dc instructions and dc summary to [facility] as well as [facility]. Addendum entered by Betty Ramirez 03/28/21 12:17: Received tc back from Merle at [facility], pt cost is 0. RN RENATO in to pt room, pt aware that there is not a cost and that IV will be delivered and [facility] will resume. Original Note: Pt to dc today on cubicin IV. TC to [facility], spoke with Herminia, faxed referral. She will check cost and notify RN RENATO back. TC to Patrick at [facility], made aware pt will dc today and will fax dc information and orders when available, left message.
--- NOTE | 2021-03-28 10:21 | PCM.PN.ID ---
Physical Exam Narrative Feeling much better. Sweats much improved last night. Const alert General Appearance: cooperative Resp normal air movement and clear to auscultation bilaterally Cardio regular rate and regular rhythm GI normal to inspection, nondistended, normoactive bowel sounds Skin no rashes or lesions noted ID ID: Route of nutrition/ use of supplements: [] Nutritional Intake: [] IV Site: [] Deleon Catheter: [] Assessment & Plan Assessment/Plan (1) Infection of lumbar spine: PLAN: Reviewed MRI. Diffuse rash, improving. Now on dapto. Feeling much better, ok for home with dapto, weekly labs, stop date 04/15/21. ID followup in 2-3 weeks. Will follow, wrote rx.
[2021-03-28] MEDS: HYDROmorphone 2 MG TABLET PO (12:21)
[2021-03-28] MEDS: DiphenhydrAMINE 25 MG Capsule PO (12:21)
[2021-03-28 13:06] VITALS: BP 185/83; PULSE 66; RESP 16; TEMP 36.3; O2SAT 100
[2021-03-29 13:07] LABS: Anti-Centromere B Ab <0.2 AI (0.0-0.9); Anti-Chromatin <0.2 AI (0.0-0.9); Anti-Jo <0.2 AI (0.0-0.9); Anti-Scleroderma-70 AB <0.2 AI (0.0-0.9); RNP Ab <0.2 AI (0.0-0.9); SJOGREN'S Anti-SS-A test < 0.2 AI (0.0-0.9); SJOGREN'S Anti-SS-B test < 0.2 AI (0.0-0.9); Smith Ab <0.2 AI (0.0-0.9)
[2021-03-29 14:01] LABS: Anti-Histone Abs 0.5 Units (0.0-0.9); Anti-dsDNA Ab <1 IU/mL (0-9)
== END 2021-03-28 15:14 | disposition home health service (06) | DRG 560 ==
PROVIDERS: Internal Medicine; Internal Medicine Gastroenterology; Admitting Provider Hospitalist; PCP Preventive Medicine Occupational Medicine; Visit Provider Internal Medicine
PROC: 0DJ08ZZ Inspection of Upper Intestinal Tract, Via Natural or Artificial Opening Endoscopic (ICD-10-PCS; CPT 43235; principal; 2021-03-27 12:25)
DX: T84.63XA Infection and inflammatory reaction due to internal fixation device of spine, initial encounter (principal); M46.26 Osteomyelitis of vertebra, lumbar region; N17.8 Other acute kidney failure; T36.8X5A Adverse effect of other systemic antibiotics, initial encounter; M51.36 Other intervertebral disc degeneration, lumbar region; K29.70 Gastritis, unspecified, without bleeding; K29.80 Duodenitis without bleeding; K21.00 Gastro-esophageal reflux disease with esophagitis, without bleeding; K31.89 Other diseases of stomach and duodenum; F32.A Depression, unspecified; K63.89 Other specified diseases of intestine; R11.2 Nausea with vomiting, unspecified; R10.13 Epigastric pain; T40.2X5A Adverse effect of other opioids, initial encounter; L27.0 Generalized skin eruption due to drugs and medicaments taken internally; T36.1X5A Adverse effect of cephalosporins and other beta-lactam antibiotics, initial encounter; R61 Generalized hyperhidrosis; Z98.1 Arthrodesis status; Z79.891 Long term (current) use of opiate analgesic; Z79.899 Other long term (current) drug therapy; Z87.891 Personal history of nicotine dependence
CPT/HCPCS: 36415; 72158; 80048; 80053; 80076; 82140; 82550; 83516; 83605; 83615; 83735; 84100; 84156; 85025; 85379; 85652; 86140; 86225; 86226; 86235; 86256; 87040; 88305; 93306; 97802; A9575; J0878; J2185; J7030; J7120; Q9957; A4216; C8929; J2405; J3490

== ENCOUNTER → 2021-04-10 | Outpatient (CLI) | payer OTHER, SELFPAY ==
[2021-04-10 11:44] LABS: Absolute Lymphocyte Count 2.51 X10^3/uL (0.83-4.51); Absolute Neutrophil Count 2.5 X10^3/uL (2.0-7.7); Basophil# 0.05 X10^3/uL; Basophil% 0.8 % (0-1); Eosinophils% 4.8 % (0-5); Hematocrit 33.1 % (40-54); Hemoglobin 10.9 g/dL (13.0-16.5); Lymphocyte # 2.51 X10^3/ul (0.83-4.51); Lymphocyte % 40.4 % (19-41); Mean Corp Hgb Conc 32.9 g/dL (32-36); Mean Corpuscular Hgb 29.9 pg (27.0-32.0); Mean Corpuscular Volume 90.7 fL (80-94); Monocyte# 0.89 X10^3/uL; Monocyte% 14.3 % (0-10); NRBC Flagged by Analyzer 0 % (0-5); Neutrophil # 2.45 X10^3/uL (2.7-7.7); Neutrophil % 39.4 % (47-70); Platelet Count 317 K/mm3 (150-450); RBC Distribution Width CV 13.1 % (11.6-14.6); RBC Distribution Width SD 42.8 fl (35.1-43.9); Red Blood Count 3.65 M/mm3 (4.6-6.2); White Blood Count 6.2 K/mm3 (4.4-11.0)
[2021-04-10 11:57] LABS: ALB/GLOB Ratio 0.9 RATIO (0.9-2.4); AST(SGOT) 21 U/L (15-37); Alanine Aminotransfer ALT/SGPT 32 U/L (16-61); Albumin, Serum 3.1 g/dL (3.2-5.0); Alkaline Phosphatase 100 U/L (45-117); Anion Gap 6 (5-15); BUN 18 mg/dL (7-18); BUN/Creat Ratio 12.2 RATIO (10-20); Bilirubin, Direct 0.08 mg/dL (0.00-0.30); Calcium,Total 8.9 mg/dL (8.5-10.1); Chloride 106 mmol/L (98-107); Creatinine, Serum 1.48 mg/dL (0.70-1.30); EST Glomerular Filtration Rate 52 mL/min (>60); Est Glom Filt Rate - Afr Amer 63 mL/min (>60); Globulin 3.6 g/dL (2.2-4.2); Glucose 76 mg/dL (74-106); Potassium 4.5 mmol/L (3.5-5.1); Protein, Total 6.7 g/dL (6.4-8.2); Sodium Level 140 mmol/L (136-145)
[2021-04-10 12:28] LABS: Erythrocyte Sedimentation Rate 31 mm/hr (0-20)
[2021-04-11 19:56] LABS: CPK Total, Creatine Kinase 256 U/L (39-308)
== END | disposition home or self-care (01) ==
LOC: LABSPEC 11:31
PROVIDERS: Orthopaedic Surgery; PCP Preventive Medicine Occupational Medicine; Visit Provider Internal Medicine Infectious Disease
DX: M46.26 Osteomyelitis of vertebra, lumbar region (principal)
CPT/HCPCS: 80053; 82248; 82550; 85025; 85652; 86140

== ENCOUNTER 2021-04-17 12:38 | Outpatient (CLI) | payer OTHER, SELFPAY ==
[2021-04-17 13:49] LABS: Hematocrit 33.2 % (40-54); Hemoglobin 10.8 g/dL (13.0-16.5); Mean Corp Hgb Conc 32.5 g/dL (32-36); Mean Corpuscular Hgb 29.3 pg (27.0-32.0); Mean Corpuscular Volume 90.2 fL (80-94); Mean Platelet Vol. 9.1 fl (6.2-12.0); Platelet Count 426 K/mm3 (150-450); RBC Distribution Width CV 13.4 % (11.6-14.6); RBC Distribution Width SD 43.9 fl (35.1-43.9); Red Blood Count 3.68 M/mm3 (4.6-6.2); White Blood Count 5.7 K/mm3 (4.4-11.0)
[2021-04-17 13:55] LABS: Erythrocyte Sedimentation Rate 45 mm/hr (0-20)
[2021-04-17 14:04] LABS: AST(SGOT) 26 U/L (15-37); Alanine Aminotransfer ALT/SGPT 31 U/L (16-61); Albumin, Serum 3.4 g/dL (3.2-5.0); Alkaline Phosphatase 99 U/L (45-117); Anion Gap 8 (5-15); BUN 23 mg/dL (7-18); BUN/Creat Ratio 18.1 RATIO (10-20); Bilirubin, Direct < 0.05 mg/dL (0.00-0.30); CPK Total, Creatine Kinase 136 U/L (39-308); Calcium,Total 8.6 mg/dL (8.5-10.1); Chloride 106 mmol/L (98-107); Creatinine, Serum 1.27 mg/dL (0.70-1.30); EST Glomerular Filtration Rate 62 mL/min (>60); Est Glom Filt Rate - Afr Amer 75 mL/min (>60); Globulin 3.7 g/dL (2.2-4.2); Glucose 88 mg/dL (74-106); Potassium 4.7 mmol/L (3.5-5.1); Protein, Total 7.1 g/dL (6.4-8.2); Sodium Level 140 mmol/L (136-145)
== END 2021-04-17 23:59 | disposition home or self-care (01) ==
PROVIDERS: PCP Preventive Medicine Occupational Medicine; Visit Provider Internal Medicine Infectious Disease
DX: T81.42XA Infection following a procedure, deep incisional surgical site, initial encounter (principal); M46.26 Osteomyelitis of vertebra, lumbar region; M51.16 Intervertebral disc disorders with radiculopathy, lumbar region
CPT/HCPCS: 80048; 80076; 82550; 85027; 85652

== ENCOUNTER 2021-05-31 14:05 | Outpatient (CLI) | payer OTHER, SELFPAY ==
[2021-05-31 15:09] LABS: Erythrocyte Sedimentation Rate 5 mm/hr (0-20)
[2021-05-31 15:29] LABS: CRP < 2.90 mg/L (0.0-3.0)
== END 2021-05-31 23:59 | disposition home or self-care (01) ==
LOC: MTLAB 14:05
PROVIDERS: PCP Preventive Medicine Occupational Medicine; Referring Provider Orthopaedic Surgery; Visit Provider Orthopaedic Surgery
DX: M46.26 Osteomyelitis of vertebra, lumbar region (principal)
CPT/HCPCS: 36415; 85652; 86140

== ENCOUNTER 2021-06-07 13:36 | Outpatient (CLI) | payer OTHER, SELFPAY ==
--- NOTE | 2021-06-07 13:50 | CT_ITS ---
STUDY: CT BRAIN WITH AND WITHOUT CONTRAST REASON FOR EXAM: Male, 60 years old. DIZZINESS RADIATION DOSAGE (If Supplied By Facility): CTDIvol = ( 44.99 ) mGy, DLP = ( 1580.97 ) mGycm TECHNIQUE: Transaxial CT imaging of the brain was performed pre and post contrast administration. The examination was performed with intravenous administration of 50mL Isovue-370. Individualized dose optimization techniques were used for this CT. COMPARISON: None. FINDINGS: Normal soft tissue structures. Normal calvarium. Normal size ventricles and extra-axial spaces for the patient''s age. Normal white matter tracts of the cerebral hemispheres. Normal basal ganglia and thalami. Normal brainstem. Normal cerebellum. There is no intracranial hemorrhage. There are no findings of an acute ischemic infarction. Normal visualized paranasal sinuses. CT/Brain/Head W/WO Contrast IMPRESSION: Normal unenhanced and enhanced CT scan of the brain. Electronically Signed: Lonny Olivier MD at 14:32 EST ,
== END 2021-06-07 23:59 | disposition home or self-care (01) ==
PROVIDERS: PCP Preventive Medicine Occupational Medicine; Visit Provider Nurse Practitioner Family
DX: R42 Dizziness and giddiness (principal)
CPT/HCPCS: 70470; Q9967

== ENCOUNTER → 2021-08-09 | Outpatient (CLI) | payer OTHER, SELFPAY ==
--- NOTE | 2021-08-09 15:27 | MRI_ITS ---
EXAM: MR RIGHT LOWER EXTREMITY WITHOUT INTRAVENOUS CONTRAST, HIP CLINICAL INDICATION: pain IN R GROIN AFTER SLIPPING TECHNIQUE: Multiplanar and multisequence MR images of the right hip without intravenous contrast. This report was created using [email or web address] report [employer] technology. COMPARISON: None. FINDINGS: TENDONS: FLEXORS: Unremarkable. Intact. EXTENSORS/HAMSTRING: Unremarkable. Intact. ABDUCTORS: Unremarkable. Intact. ADDUCTORS: Unremarkable. Intact. ROTATORS: Unremarkable. Intact. MUSCLES: Sacral paraspinal muscle edematous changes suggesting muscular strain. FLUID: Unremarkable. No joint effusion. No trochanteric bursitis. LABRUM: Unremarkable. No evidence of a tear on this non-arthrogram exam. CARTILAGE: Unremarkable. Articular cartilage intact. BONES/JOINTS: Unremarkable. No femoral neck fracture. No avascular necrosis of the femoral head. No sacral insufficiency fracture. No suspicious bone marrow signal alteration. OTHER SOFT TISSUES: Increased T2 signal in the left lower quadrant subcutaneous tissue suggesting ecchymoses. MRI/Lower Ext Joint Only (Routine) IMPRESSION: 1. Sacral paraspinal muscle edematous changes suggesting muscular strain. 2. Increased T2 signal in the left lower quadrant subcutaneous tissue suggesting ecchymoses. 3. No fracture of the right hip. Electronically Signed: Jordan Ozuna MD at 17:21 EDT ,
== END | disposition home or self-care (01) ==
LOC: MRI 15:27
PROVIDERS: PCP Preventive Medicine Occupational Medicine; Visit Provider Orthopaedic Surgery
DX: M25.551 Pain in right hip (principal)
CPT/HCPCS: 73721

== ENCOUNTER → 2022-05-30 | Outpatient (CLI) | payer OTHER, SELFPAY ==
--- NOTE | 2022-05-30 15:42 | MRI_ITS ---
EXAM: MR RIGHT LOWER EXTREMITY WITHOUT INTRAVENOUS CONTRAST, KNEE CLINICAL INDICATION: pain and instability TECHNIQUE: Multiplanar and multisequence MR images of the right knee without intravenous contrast. This report was created using [employer] report generation technology. COMPARISON: None. FINDINGS: BONES/JOINTS: No other remarkable bone marrow signal alterations. No significant arthritic changes. EXTENSOR MECHANISM: Unremarkable. MEDIAL MENISCUS: Complex tearing of the posterior horn of the medial meniscus. LATERAL MENISCUS: Unremarkable. No lateral meniscal tearing. MEDIAL CAPSULE/SUPPORTING STRUCTURES: Unremarkable. Intact. LATERAL CAPSULE/SUPPORTING STRUCTURES: Unremarkable. Lateral collateral ligamentous complex, inclusive of the popliteal tendon, are intact. ANTERIOR CRUCIATE LIGAMENT: Unremarkable. Intact. POSTERIOR CRUCIATE LIGAMENT: Unremarkable. Intact. MUSCLES: Unremarkable. CARTILAGE: High-grade chondral fissuring at the junction of the median ridge of the patella and lateral patellar facet. Other areas of adjacent low-grade patellar chondral fissuring are also noted. No other focal chondral defects. FLUID: Moderate suprapatellar joint effusion with no significant synovitis or intra-articular ossific bodies. No Villanueva''s cyst. MRI/Lower Ext Joint Only (Routine) IMPRESSION: Complex tearing of the posterior horn of the medial meniscus. High-grade chondral fissuring at the junction of the median ridge of the patella and lateral patellar facet. Moderate suprapatellar joint effusion. Electronically Signed: Carlos Guerrero MD at 23:03 EST Reading Location ID and State: [address] [place] [address] Tel , Service support ,
== END | disposition home or self-care (01) ==
PROVIDERS: PCP Preventive Medicine Occupational Medicine; Referring Provider Physician Assistant; Visit Provider Physician Assistant
DX: M23.91 Unspecified internal derangement of right knee (principal); M25.561 Pain in right knee
CPT/HCPCS: 73721

== ENCOUNTER 2022-07-06 08:46 | Day surgery (SDC) | payer OTHER, SELFPAY ==
[2022-07-02 17:30] LABS: Hematocrit 40.8 % (40-54); Hemoglobin 14.1 g/dL (13.0-16.5); Mean Corp Hgb Conc 34.6 g/dL (32-36); Mean Corpuscular Hgb 31.3 pg (27.0-32.0); Mean Corpuscular Volume 90.5 fL (80-94); Mean Platelet Vol. 8.5 fl (6.2-12.0); Platelet Count 307 K/mm3 (150-450); RBC Distribution Width CV 12.7 % (11.6-14.6); RBC Distribution Width SD 41.6 fl (35.1-43.9); Red Blood Count 4.51 M/mm3 (4.6-6.2); White Blood Count 5.8 K/mm3 (4.4-11.0)
[2022-07-02 17:51] LABS: Erythrocyte Sedimentation Rate 15 mm/hr (0-20)
[2022-07-02 17:53] LABS: Anion Gap 5 (5-15); BUN 15 mg/dL (7-18); BUN/Creat Ratio 12.1 RATIO (10-20); CRP 3.66 mg/L (0.0-3.0); Calcium,Total 9.2 mg/dL (8.5-10.1); Chloride 108 mmol/L (98-107); Creatinine, Serum 1.24 mg/dL (0.70-1.30); EST Glomerular Filtration Rate 63 mL/min (>60); Est Glom Filt Rate - Afr Amer 76 mL/min (>60); Glucose 94 mg/dL (74-106); Potassium 4.2 mmol/L (3.5-5.1); Sodium Level 140 mmol/L (136-145)
[2022-07-06] MEDS: Lactated Ringers 1,000 ML 15 ML IV ×2 (09:19→11:40)
[2022-07-06 09:33] VITALS: BP 118/64; PULSE 63; RESP 18; TEMP 37.1; O2SAT 98; BMI 29.8
--- NOTE | 2022-07-06 10:24 | PCM.HP.BLA ---
History and Physical Date of Admission: 07/06/22 [facility] [address] [place] [address] OFFICE VISIT Date of Service:? 06/11/22 MR#: [id number] Acct: [id number] Name:UMESH RICHEY Rep #: [id number] : 1960 ? ? Provider: Dr. Chalo Patrick, DO Age/Sex:? 61/M ? ? [place] [facility] [email or web address] Status: Signed Intake Vital Signs ? 06/08/2314:56 06/11/2314:30 Height 10 in 5 ft 10 in Intake Visit Reasons:?RIGHT KNEE Chief Complaint: right knee pain Is patient in pain?: Yes (right knee) Pain scale (1-10): 7 Allergies adhesive tape [surgical tape] Allergy (Verified 06/11/22 15:11) Rashshellfish derived Allergy (Verified 06/11/22 15:11) Swellingvancomycin Allergy (Verified 06/11/22 15:11) Rash Medications magnesium 250 mg tablet 250 mg PO QHS PAIN #0 tabs 03/28/21 [Rx Confirmed 04/27/22] mecobalamin (vitamin B12) 1,000 mcg chewable tablet 500 mcg PO DAILY 05/05/21 [History Confirmed 04/27/22] pantoprazole 40 mg tablet,delayed release 40 mg PO DAILY GERD 05/05/21 [History Confirmed 04/27/22] escitalopram oxalate 10 mg tablet 10 mg PO 03/28/22 [History Confirmed 04/27/22] pregabalin 150 mg capsule 150 mg PO 03/28/22 [History Confirmed 04/27/22] tamsulosin 0.4 mg capsule 0.4 mg PO 03/28/22 [History Confirmed 04/27/22] tirzepatide 5 mg/0.5 mL subcutaneous pen injector (Mounjaro) 5 mg subcut QWEEK 04/27/22 [History Confirmed 04/27/22] multivitamin 1 tab PO DAILY 06/11/22 [History Confirmed 06/11/22] PFSH Medical History? Abdominal pain Alcohol use Arthritis Back pain Chills (without fever) Former smoker Gastric reflux GERD (gastroesophageal reflux disease) History of anal fissures History of pain when walking History of stress test History of stress test History of trigger finger History of unsteady gait Infection of lumbar spine Leg cramps Low iron Marijuana use Migraine headache Normocytic anemia Sweating abnormality Thrombocytosis Wears glasses Surgical History? H/O left knee surgery h/o lumbar spine surgery Hx of colonoscopy Hx of hemorrhoidectomy S/P lumbar fusion Family History? Mother?? Lung cancerFather?? Dementia Social History? Smoking Status:? Former smoker alcohol intake:? current alcohol intake frequency: holidays/special occasions only what type of physical activity do you participate in:? weight training HPI RIGHT KNEE Chief Complaint: right knee pain Details: Parts of this documentation were recorded by a scribe, this documentation accurately reflects the service provided and the decisions made by me, Dr. Chalo Patrick, DO 06/11/22 [id number]. UMESH BAUER is a 61 year old M here today for right knee MRI review. Pt. states he felt a painful snap in his right knee as he was walking on Saturday, but that was the only time he has had that snap. He rates his pain 7/10 today. Pt. has been applying ice and taking day pro for pain.? He had an injection on 03/15/22 which was helpful for a day. He has been taking an anti-inflammatory. He complains of a sharp pain over his medial knee.? He also complains of a pain into his right calf. He complains of numbness into his right hand radial 3 digits he has had for some time, he has faild wrist splint and NSAIDs in past .? and index/middle trigger finger on his left hand. Patient had an EMG in November which is here for review. Ortho Exam General General: Yes no acute distress Neurologic: Yes alert and Yes oriented x3 Psychologic: Yes reasonable and appropriate Right Wrist/Hand Right Wrist: Yes Durken's Test and Phalen's WRIST: 60 supination, full pronation, 85 wrist extension, 60 wrist flexion Left Wrist/Hand WRIST: mild triggering index and middle finger, hypertrophy and tenderness A1 óscar of index and middle. Right Knee Skin/Wound: Yes CDI, No erythema, No ecchymosis and No swelling Knee ROM: Yes ROM-Flexion 0-140 (118) Examination: Yes Med jt line tenderness and Yes Nakia's Test Stability: NML: Anterior Drawer, NML: Posterior Drawer, NML: Valgus 30 and NML: Varus 30 Patella Grind: No KNEE: popliteal swelling Head: Normocephalic Atraumatic Chest: symmetrical rise, non-labored breathing, no audible wheeze Abdomen: no guarding, non-rigidI have examined the patient and the H&P has been reviewed. There are no clinical changes since date of exam. Supplemental Info 05/30/2022 MRI right knee:Complex tearing of the posterior horn of the medial meniscus.? High-grade chondral fissuring at the junction of the median ridge of the patella and lateral patellar facet.Moderate suprapatellar joint effusion. 03/06/2022 x-ray right knee:Osteopenia with mild medial compartmental arthrosis and joint effusion.? Coding Level of Care Code Off vis,est,level 3 Diagnoses Acute medial meniscus tear of right knee? S83.241A Carpal tunnel syndrome? G56.00 Assessment and Plan Assessment and Plan (1) Acute medial meniscus tear of right knee: (2) Carpal tunnel syndrome: ?Status:?Acute Plan Educated the patient about the anatomy of the knee and etiology of his pain. Spoke with the patient about? his options- knee arthroscopy partial medial menisectomy. Explained the procedure, risks and recovery. Patient will ambulate as tolerated post op. Spoke with him about post meniscectomy pain syndrome. Patient will have blood work prior to his surgery due to history of infection. Spoke with the patient about proceeding with a carpal tunnel release on his right hand at the same time. Explained that he needs to be mindful as he will be on crutches post op for his knee. Patient may wear a wrist brace post op to protect his wrist. however he will have weight restrictions and he has increased risk of wound complications if he decides to proceed with both at the same time. in addiion he may have difficulty with ambulation for same reason.? He should continue with his normal diet and multivitamin. He should not take any fish oil or tumeric prior to his surgery. no NSAID for 7 days prior to surgery. Follow up for his 2 week post op or sooner if pain, swelling, numbness or associated symptoms, or concerns develop.? All questions answered. Patient in agreement of plan. 06/11/22 1614 <Electronically signed by Chalo Patrick DO> Date Chalo Patrick DO Cosigner Signature: Date (if applicable) ? CC: ? I have examined the patient and the H&P has been reviewed. There are no clinical changes since date of exam.~
[2022-07-06] MEDS: Cefazolin 2 GM in 0.9% Normal Saline 100 ML IV (10:29)
[2022-07-06] MEDS: MethylPREDNISolone Acetate 40 MG/ML Vial IM (10:41)
[2022-07-06] MEDS: Epinephrine (1 mg/ml) 1 MG/ML VIAL (10:53)
[2022-07-06] MEDS: Bupivacaine 0.25% 30 ML Vial (10:53)
[2022-07-06] MEDS: Lidocaine 1% /Epi 1:100 (20ml) 20 ML Vial (10:53)
--- NOTE | 2022-07-06 11:50 | OP.PCM_ITS ---
Operative Report Date of Procedure: 07/06/22 Preop diagnosis: Right knee complex tear posterior horn medial meniscus Postoperative diagnosis: Right knee complex tear posterior horn medial meniscus grade 2 cartilage wear throughout the knee Procedure: Right knee arthroscopic partial medial meniscectomy Anesthesia: General Estimated blood loss: 5 mL Tourniquet time: 22 minutes 300 mmHg Complications: none Indication for procedure: 61-year-old male patient who has had ongoing mechanical knee pain and has failed conservative treatment the patient did wish to proceed with an elective arthroscopic surgery to attempt to alleviate the symptoms. Risk benefits and alternatives of the procedure were reviewed including risk of bleeding infection nerve artery tissue damage need for further surgery continued pain and expected postoperative course. Procedure: The patient was met in the preoperative holding area. The operative extremity was identified by both patient and physician and family and marked. Patient was brought back to the operating room on a wheeled cart and transferred to the operating table in the supine position. Anesthesia was started. A well- padded tourniquet was placed on the operative extremity. A lower extremity leg shelby was secured to the operative extremity. The contralateral extremity was well-padded and the end of the bed was flexed to 90 degrees. The patient was prepped and draped in the usual sterile fashion. A timeout was called to ensure the proper patient, procedure, and extremity were being contemplated. 0.5% Marcaine with epinephrine was injected into the planned incisional areas under the skin only. An Esmarch was used to exsanguinate the extremity and the tourniquet was inflated. An 11 blade scalpel was used to make a stab incision in the anterior lateral portal. The arthroscope was inserted into the intercondylar notch and inflow and outflow tubes were attached. Arthroscopic visualization began. The medial compartment was entered. An 18-gauge spinal needle was used to establish the placement for anterior medial portal. An 11 blade scalpel was used to make a stab incision. Blunt probe was inserted followed by a meniscal probe. Medially there was noted to be grade 2 cartilage wear throughout the medial compartment small area of grade 3 of the posterior aspect of the medial femoral condyle was also noted a complex tear of the medial meniscus posterior horn which was pretty extensive with use of arthroscopic biting instruments shaver and ArthroCare wand partial medial meniscectomy was performed the ACL was found to be intact. The lateral compartment was entered there is noted to be softening and grade 2 cartilage wear small area of grade 3 fraying of the anterior lateral tibial plateau The arthroscope was switched to the medial portal to complete the procedure. The medial and lateral gutters were inspected and were free of loose bodies. The patellofemoral joint was inspected and demonstrated grade 2 cartilage wear. There was good patellar tracking. The knee was thoroughly irrigated and drained. An intra-articular injection with 5 cc 0.5% Marcaine plain and 40 mg of Depo-Medrol was injected intra-articularly. The arthroscope was removed the portals were closed with 3-0 nylon arthroscopic stitches. Followed by Xeroform 4 x 4's ABDs web roll and an Soham wrap. The tourniquet was let down and the drapes were removed. All counts were correct. The patient was brought back to the PACU in stable condition.
[2022-07-06 11:52] VITALS: BP 113/53; BP 118/64; PULSE 91; RESP 12; TEMP 36.4; O2SAT 94
--- NOTE | 2022-07-06 11:52 | PCM.OP.BLANK ---
Operative Report Date of Procedure: 07/06/22 Preoperative diagnosis; right carpal tunnel syndrome, left index and middle trigger finger Postoperative diagnosis; same Procedure: 1. right open carpal tunnel release 2. Left index and middle A1 óscar steroid injection Anesthesia: Local with MAC Tourniquet time; 10 minutes 250 mm Hg Complications: None Indication for procedure; This is a 61-year-old male with long-standing symptoms consistent with carpal tunnel syndrome the patient did have electrodiagnostic evidence of this and has failed conservative treatment. Risks benefits and alternatives were reviewed including risks of bleeding infection nerve artery tissue damage need for further surgery and continued pain and symptoms, hypersensitivity to scar and Pillar pain. He also requested to have his left index and middle trigger fingers injected at the same time. Procedure; The patient was met in the preoperative holding area the operative extremity was identified by both patient and physician and was marked the patient was met by anesthesia and brought back to the operating room and transferred to the operating table in the supine position. Anesthesia was started. A well-padded tourniquet was placed on the operative upper extremity. The patient was prepped and draped in the usual sterile fashion. A timeout was called to ensure the proper patient procedure and extremity were being contemplated. 0.5 percent lidocaine with epinephrine was injected into the incisional area. An Esmarch was used to exsanguinate the extremity. The tourniquet was inflated to 250 mmHg. A midline incision was made with a 15 blade scalpel between the thenar and hypothenar eminence. This was carried down through the skin and subcutaneous tissue. Lazaro retractors were then used, a deep blade scalpel was used to make a deep incision in the palmar aponeurosis. The lazaro retractors were then placed deep to this and the transverse carpal ligament was identified a perforation was made with a scalpel and a Littler scissors were used to complete the release of the transverse carpal ligament distally under direct visualization with the tips facing ulnarly until the perivascular fat was reached. Then turning our attention proximally using a tension slide technique the proximal extent of the transverse carpal ligament was released . There was noted to be hourglass configuration to the median nerve and hypertrophy of the transverse carpal ligament without other findings. The wound was thoroughly irrigated and was closed with 4-0 nylon vertical mattress stitches. Dressing was applied in the form of xeroform 4 x 4, web roll and an keaton wrap. Tourniquet was let down there is no intraoperative complications patient tolerated the procedure wel, the left index and A1 óscar were prepped with alcohol and injected with 20 mg of Depo-Medrol and half cc of Marcaine plain into each A1 óscar . Patient was transferred to the PACU. All counts were correct.
--- NOTE | 2022-07-06 11:54 | DCINST_ITS ---
Discharge Instructions Diet Discharge Diet: No restrictions Dressing / Incision Call your doctor if you observe: Shortness of breath and Chest pain Additional Dressing/Incision Instructions:: Right knee arthroscopy instructions Ice and elevate next 72 hours .keep dressing on clean and dry for 48 hours then may remove begin showering daily but do not submerge in tub or pool. After shower may apply Band-Aids . Encourage knee range of motion weightbearing as tolerated, use crutches until confident in knee then may discontinue. No strenuous activity. When not ambulating keep iced and elevated next 72 hours. Do not mix pain medication with recreational drugs or alcohol only take as prescribed can be addictive and abusive, call with any questions or concerns. Right carpal tunnel instructions Ice and elevate operative extremity next 72 hours. Keep dressing on clean and dry for 48 hours then may remove and allow warm soapy water to rinse over incision but do not submerge until sutures are out. Then apply bandaid over incision and change daily. encourage finger range of motion. Not lift more than 1/2 pound. Minimize narcotic use only as needed and directed, may use OTC NSAID and Tylenol to supplement/substitute for pain control. Try to minimize weight through the right hand with crutch as pressure over incision can cause the wound to dehisce. If still requiring crutch after first dressing change and plaster splint is removed would benefit from OTC wrist brace versus coming into the office for a wrist brace. Follow Up Care Please Follow Up With: Chalo Patrick DO When: 2 weeks Test Results: Test results from this visit will be discussed in further detail at your follow- up appointment, if applicable. Discharge Plan Admission Primary Reason for Your Visit: right knee arthroscopy, right carpal tunnel surgery Attending Provider: Chalo Patrick Primary Care Provider: Saul Lagos Discharge Orders/Prescriptions Prescriptions: New oxycodone 5 mg tablet 5 - 10 mg PO Q4H PRN (Reason: pain) 5 Days Qty: 30 0RF Continued pantoprazole 40 mg tablet,delayed release (DR/EC) 60 mg PO DAILY mecobalamin (vitamin B12) 1,000 mcg tablet,chewable 500 mcg PO DAILY pregabalin 150 mg capsule 150 mg PO TID Label Comments: TAKE 1 CAPSULE BY MOUTH THREE TIMES A DAY escitalopram oxalate 10 mg tablet 5 mg PO DAILY Label Comments: TAKE 1 TABLET BY MOUTH EVERY DAY tamsulosin 0.4 mg capsule 0.4 mg PO QHS Label Comments: TAKE 1 CAPSULE BY MOUTH EVERYDAY AT BEDTIME Mounjaro 5 mg/0.5 mL pen injector 5 mg subcut SA multivitamin Tablet 1 tab PO DAILY magnesium 250 mg Tablet 250 mg PO QHS Qty: 0 0RF testosterone 100 mg/mL Suspension 1.5 mg IM .Q2W Probiotic 3 billion cell Capsule 3,000 mmu cells PO DAILY Rx Instructions: administer with a meal Referrals / Follow Up: Saul Lagos DO [Primary Care Provider] - Disposition Discharge Orders: Discharge Patient (Routine); Ordered 07/06/22 Ordered By: Dr. Chalo Patrick
[2022-07-06 12:00] VITALS: BP 102/62; BP 118/64; PULSE 85; RESP 16; O2SAT 93
[2022-07-06 12:15] VITALS: BP 112/56; BP 118/64; PULSE 73; RESP 16; O2SAT 97
[2022-07-06 12:30] VITALS: BP 118/64; BP 125/80; PULSE 73; RESP 18; TEMP 36.1; O2SAT 95
[2022-07-06 13:36] VITALS: BP 118/64
== END 2022-07-06 13:30 | disposition home or self-care (01) ==
LOC: SDC 08:46 → AC 08:47
PROVIDERS: PCP Preventive Medicine Occupational Medicine; Referring Provider Orthopaedic Surgery; Visit Provider Orthopaedic Surgery
PROC: (CPT 29870; principal; 2022-07-06 10:10)
PROC: (CPT 64721; 2022-07-06 10:10)
DX: S83.241A Other tear of medial meniscus, current injury, right knee, initial encounter (principal); G56.01 Carpal tunnel syndrome, right upper limb; M65.322 Trigger finger, left index finger; K21.9 Gastro-esophageal reflux disease without esophagitis; M51.36 Other intervertebral disc degeneration, lumbar region; F32.A Depression, unspecified; Z87.891 Personal history of nicotine dependence; Z79.899 Other long term (current) drug therapy; X58.XXXA Exposure to other specified factors, initial encounter
CPT/HCPCS: 64721; 29881; 20552; 01810; 01400; 36415; 80048; 85027; 85652; 86140; J7120; J2405

== ENCOUNTER 2023-01-02 06:29 | Day surgery (SDC) | payer OTHER, SELFPAY ==
[2023-01-02] MEDS: Lactated Ringers 1,000 ML 15 ML IV (07:07)
[2023-01-02 07:08] VITALS: BP 117/72; PULSE 57; RESP 18; TEMP 36.6; O2SAT 98; BMI 28.1
--- NOTE | 2023-01-02 07:16 | HP.PCM_ITS ---
History and Physical Date of Admission: 01/02/23 61 M who presents to the office today to set up a screening colonoscopy. I got to know him when he presented with with night sweats ,fevers, nausea without vomiting and progressive weight loss. He has been on a high dose pain medicine for the last several weeks.? He has a past medical history of mild gastroesophageal reflux, anemia and mild arthritis.? Patient says that he was in good state of health until he developed worsening back pain.? He knew that he had 2 abnormal discs in his back and it progressed to 3 abnormal disc in his back requiring surgery. Patient underwent surgery 03/04/[address] Jorge for patient was found to have a epidural abscess.? Patient's bone graft and hardware was removed and irrigation was completed.? Patient had Hemovac drain which was removed on 03/06 Dr. Jorge note reviewed. ?Dr. Craig recommended long-term, 6 weeks of IV antibiotics vancomycin and cefepime.? The patient has right arm PICC line. -Lumbar spine MRI with and without contrast demonstrates postsurgical changes at L4 and L5 L5 and S1 along with concerns for acute osteomyelitis and discitis at L4-L5 with phlegmonous change in the right paravertebral soft tissues and epidural empyema posterior to L5 producing compression and thecal sac. I was asked to see the patient due to worsening nausea and inability to eat resulting in worsening weight loss.? Patient says that he is so nauseous that he cannot think about eating or makes him more nauseated.? Recently his vancomycin was stopped due to possible red man syndrome.? When he came into the hospital he was discovered to have acute renal failure possibly secondary to vancomycin.? He has not been taken any nonsteroidals.? His biochemical analysis does not show any signs of leukocytosis but he is persistently febrile that has been responsive to Tylenol therapy.? He denied any chest pain but he does have some shortness of breath. He was diagnosed with narcotic induced gastroparesis has been doing very well. He has lost approximately 50 pounds with the use of Mounjaro. He is here to set up a screening colonoscopy and he would like his anal fissure treated. ROS Const Constitutional: No anorexia, fatigue, fever(s), weight change or sleep problems Eyes Eyes: No change in vision ENT ENT: No abnormal hearing, difficulty swallowing, mouth lesions, tongue swelling or throat swelling Resp Respiratory: No cough or shortness of breath Cardio Cardiology: No chest pain at rest, chest pain with exertion, shortness of breath or dyspnea on exertion Gastro GI: No difficulty swallowing Genitourinary Male: No difficulty urinating or burning urination Musc Musculoskeletal: No joint pain, joint swelling, muscle weakness or decreased muscle mass Skin Skin: No hair loss in leg, yellowing of the eye, itchy eyes, rash, skin ulcer or skin swelling Neuro Neurology: No abnormal hearing, abnormal movements, confusion, unsteady gait/balance or memory loss Psych Psychiatric: No anxiety, No confusion and No memory loss Endo Endocrine: No fatigue or weight change Aller/Imm Allergy/Immunologic: No itchy eyes, throat swelling or tongue swelling Lemuel/Lymp Hematologic/Lymphatic: No easy bleeding, easy bruising or enlarged lymph nodes Exam Const General: cooperative and comfortable Nutritional Appearance: average body habitus and well nourished HENMT Head: normal to inspection Ears: hearing grossly normal bilaterally Nose: external nose normal Face and sinus: normal facial exam Mouth: oral mucosae normal Throat: posterior oropharynx normal Eyes General: appearance normal, both eyes and all related structures Neck Neck: normal visual inspection Chest Chest palpation & inspection: normal inspection of the chest and normal palpation of entire chest wall Resp Effort & Inspection: normal respiratory effort Auscultation: Bilateral: Clear to Auscultation Cardio Palpation: normal PMI Rate: regular rate Rhythm: regular rhythm GI Inspection: normal to inspection Auscultation: normal bowel sounds Percussion: normal to percussion Palpation: no hepatosplenomegaly Skin General: no rashes or lesions noted Neuro General: patient alert Extrem General: normal to inspection Psych Affect: normal affect Quality Reporting Tobacco Screening ([facility]) Smoking Status: Former smoker Assessment and Plan Assessment and Plan (1) GERD (gastroesophageal reflux disease): Status: Acute Plan: Patient is doing very well on medical therapy for gastroesophageal reflux disease and since his nausea and vomiting is improved, he is not having any symptoms of reflux disease despite his increase appetite. 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 He had suggested to him in the hospital that he stop all narcotics and eventually after being off narcotics he stopped having any abdominal pain at all. He is able to eat normally. He has not had any nausea. He has not had any bloating or cramping. He is doing very well and can likely follow-up on a as needed basis. (3) Encounter for screening colonoscopy: Status: Acute Plan: He will undergo screening colonoscopy. He had one possibly 10 years ago. There was no problem doing that particular procedure. He was explained alternatives, risk, benefits including nondistended bleeding, infection, sepsis, perforation, need for emergent turn to . He will have an ASA of 2. (4) Anal fissure: Status: Acute Plan: He has a chronic anal fissure which we will assess and likely use Botox and possibly nitroglycerin or diltiazem to treat it and hopefully heal it. I have examined the patient and the H&P has been reviewed. There are no clinical changes since date of exam.
--- NOTE | 2023-01-02 07:30 | COLBX_PTH ---
PATIENT: UMESH BAUER LOC: EN U#:[id number] AGE/SX: 62/M ROOM: RE01/02/[address]: Dr. Sinan Angelo DO : 1960 BED: DIS: 01/02/2023 SPEC #: [id number] RECD: 01/02/23 12:26 STATUS: DAMARIS LISSY #: [id number] REJI: 01/02/23 07:[address]: Sinan Angelo DEPT: SURGICAL PATHOLOGY RECD BY: Emily Nova ENTERED: 01/02/23 13:03 SP TYPE: COLON BX OTHR DR: Dr. Saul Lagos DO Tissues: Sigmoid colon biopsy Procedures: Surgery Specimen Level IV HEADER OPERATION: Colonoscopy (MAC), Botox, polypectomy, hemorrhoid PRE-OP DIAGNOSIS: GERD, abdominal pain, screening, anal fissure TISSUE SUBMITTED: Sigmoid polyp MICROSCOPIC DIAGNOSIS Sigmoid colon polyp, biopsy: Fragments of fecal debris. See comment. CONRAD:andrey 01/03/2023 COMMENT Glandular and oral mucosal tissue is not represented in the biopsy. Clinical correlation is suggested. MICROSCOPIC DESCRIPTION Slides are reviewed. GROSS DESCRIPTION Received in fixative is one container labeled with the patient's name and designated sigmoid polyp. The specimen consists of multiple irregular fragments of light smith soft tissue that in aggregate measure 1.5 x 0.5 x 0.1 cm. Multiple fragments of fecal material are also noted. The specimen is totally submitted in one cassette. / CONRAD:andrey 01/02/2023 TC:5 [facility]: [id number]
[2023-01-02] MEDS: 0.9% Saline Lock 10 ML Syringe IV (07:40)
[2023-01-02] MEDS: Botulinum Toxin A 100 Units Vial IJ (07:40)
[2023-01-02] MEDS: 0.9% Normal Saline (Pres. free 10 ML Vial (07:40)
[2023-01-02 08:16] VITALS: BP 117/72; BP 92/68; PULSE 68; RESP 18; TEMP 37.1; O2SAT 95
[2023-01-02 08:20] VITALS: BP 110/44; BP 117/72; PULSE 67; RESP 18; O2SAT 97
--- NOTE | 2023-01-02 08:20 | OP.CCLET_ITS ---
01/02/2023 Saul Lagos [address] [place] [address] Re : Colonoscopy procedure for Yoseph Mcmorrow Dear Dr. Lagos This procedure was performed on Monday, January 02, 2023. My impressions and recommendations are as follows: Impressions : - Preparation of the colon was fair. - Anal fissure found on perianal exam. - One 9 mm polyp in the sigmoid colon, removed with a hot snare. Resected and retrieved. - Diverticulosis in the recto-sigmoid colon and in the sigmoid colon. - External and internal hemorrhoids. Banded. - Stool in the rectum, in the recto-sigmoid colon, in the sigmoid colon and in the cecum. - Anal fissure. Injected with botulinum toxin. Recommendations : - Discharge patient to home. - Resume previous diet. - Continue present medications. - Await pathology results. - Repeat colonoscopy in 5 years for surveillance. My findings are described in the full procedure note, which is enclosed. If I can be of further assistance, please feel free to contact me at . Sincerely, Sinan Angelo, 01/02/2023 8:19:19 AM This report has been signed electronically.
--- NOTE | 2023-01-02 08:20 | OP.COLON_ITS ---
Patient Name: Yoseph Franco Procedure Date: 01/02/2023 7:42 AM Date of : 1960 Age: 62 Procedure: Colonoscopy Indications: Screening for colorectal malignant neoplasm Providers: DO Trena Aly MD: Saul Lagos Medicines: Monitored Anesthesia Care Patient Profile: This is a 62 year old male. Refer to note in patient chart for documentation of history and physical. Last Colonoscopy: more than 10 years ago. Complications: No immediate complications. Procedure: Pre-Anesthesia Assessment: - Prior to the procedure, a History and Physical was performed, and patient medications and allergies were reviewed. The patient is competent. The risks and benefits of the procedure and the sedation options and risks were discussed with the patient. All questions were answered and informed consent was obtained. Patient identification and proposed procedure were verified by the physician in the pre-procedure area. Mental Status Examination: alert and oriented. Airway Examination: normal oropharyngeal airway and neck mobility. Respiratory Examination: clear to auscultation. CV Examination: normal. Prophylactic Antibiotics: The patient does not require prophylactic antibiotics. Prior Anticoagulants: The patient has taken no anticoagulant or antiplatelet agents. ASA Grade Assessment: II - A patient with mild systemic disease. After reviewing the risks and benefits, the patient was deemed in satisfactory condition to undergo the procedure. The anesthesia plan was to use monitored anesthesia care (MAC). Immediately prior to administration of medications, the patient was re-assessed for adequacy to receive sedatives. The heart rate, respiratory rate, oxygen saturations, blood pressure, adequacy of pulmonary ventilation, and response to care were monitored throughout the procedure. The physical status of the patient was re-assessed after the procedure. After I obtained informed consent, the scope was passed under direct vision. Throughout the procedure, the patient's blood pressure, pulse, and oxygen saturations were monitored continuously. The pediatric colonoscope was introduced through the anus and advanced to the cecum, identified by appendiceal orifice and ileocecal valve. The colonoscopy was performed without difficulty. The patient tolerated the procedure well. The quality of the bowel preparation was fair. The ileocecal valve, appendiceal orifice, and rectum were photographed. Scope In: 7:51:13 AM Scope Withdrawal Time 0 hours 16 minutes 47 seconds Scope Out: 8:10:19 AM Total Procedure Duration Time 0 hours 19 minutes 6 seconds Findings: An anal fissure was found on perianal exam. A 9 mm polyp was found in the sigmoid colon. The polyp was sessile. The polyp was removed with a hot snare. Resection and retrieval were complete. Verification of patient identification for the specimen was done. Estimated blood loss was minimal. A few small-mouthed diverticula were found in the recto-sigmoid colon and sigmoid colon. External and internal hemorrhoids were found during retroflexion. The hemorrhoids were Grade II (internal hemorrhoids that prolapse but reduce spontaneously). The endoscope was withdrawn. A hemorrhoid was isolated with anoscopy. Nitroglycerin was applied topically to decrease spasm of the anal sphincter. The ShortShot ligator was positioned over the hemorrhoid at the left lateral position. Suction was applied and one rubber band was placed over the hemorrhoid. This was checked to make certain that the muscularis was free of the band. Post-banding digital rectal exam showed band in good position. There were no complications. Stool was found in the rectum, in the recto-sigmoid colon, in the sigmoid colon and in the cecum. A 7 mm anal fissure was found in the anal canal. The internal anal sphincter was successfully injected with 70 units botulinum toxin. Impression: - Preparation of the colon was fair. - Anal fissure found on perianal exam. - One 9 mm polyp in the sigmoid colon, removed with a hot snare. Resected and retrieved. - Diverticulosis in the recto-sigmoid colon and in the sigmoid colon. - External and internal hemorrhoids. Banded. - Stool in the rectum, in the recto-sigmoid colon, in the sigmoid colon and in the cecum. - Anal fissure. Injected with botulinum toxin. Recommendation: - Discharge patient to home. - Resume previous diet. - Continue present medications. - Await pathology results. - Repeat colonoscopy in 5 years for surveillance. Procedure Code(s): --- Professional --- 91002, Chemodenervation of internal anal sphincter 87344, Colonoscopy, flexible; with removal of tumor(s), polyp(s), or other lesion(s) by snare technique 12365, Hemorrhoidectomy, internal, by rubber band ligation(s) CPT copyright 2021 [employer]. All rights reserved. The codes documented in this report are preliminary and upon coil winding supervisor review may be revised to meet current compliance requirements. Sinan Angelo DO 01/02/2023 8:19:19 AM This report has been signed electronically. Number of Addenda: 0 Note Initiated On: 01/02/2023 7:42 AM
[2023-01-02 08:25] VITALS: BP 117/72; BP 99/51; PULSE 71; RESP 18; O2SAT 95
[2023-01-02 08:28] VITALS: BP 100/60; BP 117/72; PULSE 72; RESP 18; TEMP 36.5; O2SAT 96
[2023-01-02 08:45] VITALS: BP 117/72
== END 2023-01-02 09:14 | disposition home or self-care (01) ==
LOC: EN 06:32 → AC 06:34
PROVIDERS: PCP Preventive Medicine Occupational Medicine; Referring Provider Preventive Medicine Occupational Medicine; Visit Provider Internal Medicine Gastroenterology
PROC: 0DJD8ZZ Inspection of Lower Intestinal Tract, Via Natural or Artificial Opening Endoscopic (ICD-10-PCS; CPT 45378; principal; 2023-01-02 07:25)
DX: Z12.11 Encounter for screening for malignant neoplasm of colon (principal); K60.2 Anal fissure, unspecified; K64.1 Second degree hemorrhoids; K57.30 Diverticulosis of large intestine without perforation or abscess without bleeding; K21.9 Gastro-esophageal reflux disease without esophagitis; F32.A Depression, unspecified; Z79.899 Other long term (current) drug therapy; Z87.891 Personal history of nicotine dependence
CPT/HCPCS: 45385; 46505; 45398; 88305; J7120; A4216; J0585; J2405; J3490

== ENCOUNTER 2023-03-05 09:03 | Day surgery (SDC) | payer OTHER, SELFPAY ==
[2023-03-05] VITALS (7 sets, daily range): BP systolic 119–140; BP diastolic 71–81; PULSE 59–73; RESP 16; TEMP 36.2–36.7; O2SAT 97–100; BMI 29.0
[2023-03-05] MEDS: Lactated Ringers 1,000 ML 15 ML IV (09:37)
--- NOTE | 2023-03-05 11:21 | PCM.HP.BLA ---
History and Physical Date of Admission: 03/05/23 [facility] [address] [place] [address] OFFICE VISIT Date of Service: 02/04/23 MR#: [id number] Acct: [id number] Name: UMESH BAUER Rep #: [id number] : 1960 Provider: Dr. Chalo Patrick, Age/Sex: 62/M Location: [facility] [email or web address] Status: Signed Intake Vital Signs 01/02/2307:08 Height 5 ft 10 in Intake Visit Reasons: left hand Chief Complaint: left hand trigger finger, finger swelling Accompanied by: Self Is patient in pain?: No Allergies adhesive tape [surgical tape] Allergy (Verified 12/26/22 15:55) Rashshellfish derived Allergy (Verified 12/26/22 15:55) Swellingvancomycin Allergy (Verified 12/26/22 15:55) Rash Medications magnesium 250 mg tablet 250 mg PO QHS PAIN #0 tabs 03/28/21 [Rx Confirmed 02/04/23] mecobalamin (vitamin B12) 1,000 mcg chewable tablet 500 mcg PO DAILY 05/05/21 [History Confirmed 02/04/23] pantoprazole 40 mg tablet,delayed release 60 mg PO DAILY GERD 05/05/21 [History Confirmed 02/04/23] pregabalin 150 mg capsule 150 mg PO TID 03/28/22 [History Confirmed 02/04/23] tamsulosin 0.4 mg capsule 0.4 mg PO QHS 03/28/22 [History Confirmed 02/04/23] multivitamin 1 tab PO DAILY 06/11/22 [History Confirmed 02/04/23] lactobacillus combination no.4 3 billion cell capsule (Probiotic) 3,000 mmu cells PO DAILY 06/29/22 [History Confirmed 02/04/23] testosterone 100 mg/mL intramuscular suspension 1.5 mg IM .Q2W 06/29/22 [History Confirmed 02/04/23] bupropion HCl 150 mg 24 hr tablet, extended release 150 mg PO DAILY 12/26/22 [History Confirmed 02/04/23] semaglutide 1 mg/dose (2 mg/1.5 mL) subcutaneous pen injector (Ozempic) 1 mg subcut QWEEK 12/26/22 [History Confirmed 02/04/23] [facility] Medical History Abdominal pain Alcohol use Arthritis Back pain Belching Colon cancer screening CPAP (continuous positive airway pressure) dependence Depression Former smoker Gastric reflux GERD (gastroesophageal reflux disease) History of anal fissures History of echocardiogram History of edema History of pain when walking History of stress test History of stress test History of trigger finger History of unsteady gait Infection of lumbar spine Leg cramps Low iron Migraine headache Normocytic anemia Sweating abnormality Thrombocytosis Wears glasses Surgical History H/O left knee surgery h/o lumbar spine surgery History of esophagogastroduodenoscopy (EGD) Hx of colonoscopy Hx of hemorrhoidectomy S/P lumbar fusion Family History Mother Lung cancerFather Dementia Social History Smoking Status: Former smoker alcohol intake: current alcohol intake frequency: holidays/special occasions only what type of physical activity do you participate in: weight training HPI left hand Details: Parts of this documentation were recorded by a scribe, this documentation accurately reflects the service provided and the decisions made by me, Dr. Chalo Patrick, DO 02/04/23 [id number]. UMESH BAUER is a 62 year old M here today for left hand finger swelling and triggering of the fingers. He states that he has been having swelling at night of the left index and middle fingers and he also reports that they will lock on him. He states this has been bothersome for over 1 month. He has had a total of 3 A1 óscar injections of the left middle finger and he has had a total of 2 A1 óscar injections of the left index finger. Most recent injection of the left middle and index fingers were 06/2022. Ortho Exam General General: Yes no acute distress Neurologic: Yes alert and Yes oriented x3 Psychologic: Yes reasonable and appropriate Right Wrist/Hand Skin/Wound: No Swelling and No Ecchymosis Left Wrist/Hand Skin/Wound: No Swelling, No Ecchymosis and No erythema A1 óscar trigger: Yes (index and middle) WRIST: hypertrophy of the middle A1 óscar non tender over index and middle A1 óscar He does have triggering of both Head: Normocephalic Atraumatic Chest: symmetrical rise, non-labored breathing, no audible wheeze Abdomen: no guarding, non-rigid Coding Level of Care Code Off vis,est,level 3 Diagnoses Trigger finger, left middle finger M65.332 Trigger finger, left index finger M65.322 Assessment and Plan Assessment and Plan (1) Trigger finger, left middle finger: Status: Acute (2) Trigger finger, left index finger: Status: Acute Plan Patient educated that he has left middle and index trigger fingers. Recommended left middle and index A1 óscar release as he has 3 injections in the middle finger and 2 in the index finger at this time and only about 3 steroid injections are recommended. Reviewed the pre-operative plans with the patient. Risks and benefits of the procedure were fully explained, including but not limited to infection, neurovascular injury, continued pain, arthritis, stiffness, need for further surgery, re-injury, DVT, PE, general risks of anesthesia, and loss of limb or life. The patient understands all the risks and does wish to proceed with written consent for left index finger and middle finger A1 óscar release. Follow up 2 weeks post op or sooner if pain, swelling, numbness or associated symptoms, or concerns develop. All questions answered. Patient in agreement of plan. 02/04/23 1452 <Electronically signed by Chalo Patrick DO> Date Chalo Patrick DO Cosigner Signature: Date (if applicable) CC: ~ I have examined the patient and the H&P has been reviewed. There are no clinical changes since date of exam.
[2023-03-05] MEDS: Cefazolin 2 GM in 0.9% Normal Saline (100mL Bag) 100 ML IV (11:26)
[2023-03-05] MEDS: Lidocaine 1% /Epi 1:100 (20ml) 20 ML Vial (11:45)
--- NOTE | 2023-03-05 11:57 | PCM.OP.BLANK ---
Operative Report Date of Procedure: 03/05/23 Preoperative diagnosis; left index and middle digit trigger finger Postoperative diagnosis; same Procedure: Left second and third digit A1 óscar release Anesthesia: Local with MAC Tourniquet time; 18 minutes 250 mm Hg Complications: None Indication for procedure; This is a [id number]-male with symptoms consistent with trigger fingers. Risks benefits and alternatives were reviewed including risks of bleeding infection nerve tendon tissue damage need for further surgery and continued pain and symptoms, hypersensitivity to scar/incision and recurrence. Procedure; The patient was met in the preoperative holding area the operative extremity was identified by both patient and physician and was marked the patient was met by anesthesia and brought back to the operating room and transferred to the operating table in the supine position. Aanesthesia was started. A well-padded tourniquet was placed on the operative upper extremity. The patient was prepped and draped in the usual sterile fashion. A timeout was called to ensure the proper patient procedure and extremity were being contemplated. 0.5 percent Marcaine was injected into the incisional area. Esmarch was used tourniquet was inflated. 15 blade scalpel was used to make a longitudinal incision directly over the A1 óscar was carried down through the subcutaneous tissue Gisele retractors placed radial and ulnar protecting the digital nerves and a Ragnell retractor was used at the apex of the incision under direct visualization a deep blade scalpel was used to release the A1 óscra. The wound was thoroughly irrigated and closed with 4-0 nylon vertical mattress edges. Dressing was applied in the form of Xeroform 4 x 4 web roll and an Soham wrap. Patient tolerated the procedure well was brought back to the PACU in stable condition.
--- NOTE | 2023-03-05 12:00 | DCINST_ITS ---
Discharge Instructions Diet Discharge Diet: No restrictions Dressing / Incision Call your doctor if you observe: Shortness of breath and Chest pain Additional Dressing/Incision Instructions:: Ice and elevate operative extremity next 72 hours. Keep dressing on clean and dry for 48 hours then may remove and allow warm soapy water to rinse over incision but do not submerge until sutures are out. Then apply bandaid over incision and change daily. encourage finger range of motion. Not lift more than 1/2 pound. Minimize narcotic use only as needed and directed, may use OTC NSAID and Tylenol to supplement/substitute for pain control. Follow Up Care Please Follow Up With: Chalo Patrick DO When: 2 weeks Test Results: Test results from this visit will be discussed in further detail at your follow- up appointment, if applicable. Discharge Plan Admission Primary Reason for Your Visit: Left index and middle trigger finger surgery Attending Provider: Chalo Patrick Primary Care Provider: Saul Lagos Discharge Orders/Prescriptions Prescriptions: New oxycodone 5 mg tablet 2.5 - 10 mg PO Q4H PRN (Reason: pain) 3 Days Qty: 10 0RF Continued pantoprazole 40 mg tablet,delayed release (DR/EC) 60 mg PO DAILY mecobalamin (vitamin B12) 1,000 mcg tablet,chewable 500 mcg PO DAILY pregabalin 150 mg capsule 150 mg PO BID Patient Comments: TAKE 1 CAPSULE BY MOUTH THREE TIMES A DAY tamsulosin 0.4 mg capsule 0.4 mg PO QHS Patient Comments: TAKE 1 CAPSULE BY MOUTH EVERYDAY AT BEDTIME multivitamin Tablet 1 tab PO DAILY magnesium 250 mg Tablet 250 mg PO QHS Qty: 0 0RF testosterone 100 mg/mL Suspension 1.5 mg IM .Q2W Probiotic 3 billion cell Capsule 3,000 mmu cells PO DAILY Rx Instructions: administer with a meal bupropion HCl 150 mg tablet extended release 24 hr 150 mg PO DAILY Patient Comments: TAKE ONE TABLET BY MOUTH EVERY DAY ascorbic acid (vitamin C) [C-500] 500 mg tablet 500 mg PO DAILY zinc 50 mg capsule 50 mg PO DAILY Referrals / Follow Up: Saul Lagos DO [Primary Care Provider] - Disposition Disposition (needs filled in before D/C Order can be placed): Home, Self Care
== END 2023-03-05 13:02 | disposition home or self-care (01) ==
LOC: SDC 09:04 → AC 09:05
PROVIDERS: PCP Preventive Medicine Occupational Medicine; Referring Provider Orthopaedic Surgery; Visit Provider Orthopaedic Surgery
PROC: (CPT 26055; principal; 2023-03-05 10:25)
DX: M65.332 Trigger finger, left middle finger (principal); M65.322 Trigger finger, left index finger; K21.9 Gastro-esophageal reflux disease without esophagitis; F32.A Depression, unspecified; M51.36 Other intervertebral disc degeneration, lumbar region; Z79.899 Other long term (current) drug therapy; Z87.891 Personal history of nicotine dependence
CPT/HCPCS: 26055; 01810; J7120; J2405

== ENCOUNTER 2023-07-03 05:32 | Day surgery (SDC) | payer OTHER, SELFPAY ==
[2023-07-03] VITALS (7 sets, daily range): BP systolic 89–121; BP diastolic 58–75; PULSE 57–69; RESP 16–18; TEMP 36.2–36.7; O2SAT 95–97
[2023-07-03] MEDS: Lactated Ringers 1,000 ML 15 ML IV (06:08)
--- NOTE | 2023-07-03 06:45 | PCM.HP.BLA ---
History and Physical Date of Admission: 07/03/23 61 M who presents to the office today to set up a screening colonoscopy. I got to know him when he presented with with night sweats ,fevers, nausea without vomiting and progressive weight loss. He has been on a high dose pain medicine for the last several weeks.? He has a past medical history of mild gastroesophageal reflux, anemia and mild arthritis.? Patient says that he was in good state of health until he developed worsening back pain.? He knew that he had 2 abnormal discs in his back and it progressed to 3 abnormal disc in his back requiring surgery. Patient underwent surgery 03/04/[address] Jorge for patient was found to have a epidural abscess.? Patient's bone graft and hardware was removed and irrigation was completed.? Patient had Hemovac drain which was removed on 03/06 Dr. Jorge note reviewed. ?Dr. Craig recommended long-term, 6 weeks of IV antibiotics vancomycin and cefepime.? The patient has right arm PICC line. -Lumbar spine MRI with and without contrast demonstrates postsurgical changes at L4 and L5 L5 and S1 along with concerns for acute osteomyelitis and discitis at L4-L5 with phlegmonous change in the right paravertebral soft tissues and epidural empyema posterior to L5 producing compression and thecal sac. I was asked to see the patient due to worsening nausea and inability to eat resulting in worsening weight loss.? Patient says that he is so nauseous that he cannot think about eating or makes him more nauseated.? Recently his vancomycin was stopped due to possible red man syndrome.? When he came into the hospital he was discovered to have acute renal failure possibly secondary to vancomycin.? He has not been taken any nonsteroidals.? His biochemical analysis does not show any signs of leukocytosis but he is persistently febrile that has been responsive to Tylenol therapy.? He denied any chest pain but he does have some shortness of breath. He was diagnosed with narcotic induced gastroparesis has been doing very well. He has lost approximately 50 pounds with the use of Mounjaro. He is here to set up a screening colonoscopy and he would like his anal fissure treated. ROS Const Constitutional: No anorexia, fatigue, fever(s), weight change or sleep problems Eyes Eyes: No change in vision ENT ENT: No abnormal hearing, difficulty swallowing, mouth lesions, tongue swelling or throat swelling Resp Respiratory: No cough or shortness of breath Cardio Cardiology: No chest pain at rest, chest pain with exertion, shortness of breath or dyspnea on exertion Gastro GI: No difficulty swallowing Genitourinary Male: No difficulty urinating or burning urination Musc Musculoskeletal: No joint pain, joint swelling, muscle weakness or decreased muscle mass Skin Skin: No hair loss in leg, yellowing of the eye, itchy eyes, rash, skin ulcer or skin swelling Neuro Neurology: No abnormal hearing, abnormal movements, confusion, unsteady gait/balance or memory loss Psych Psychiatric: No anxiety, No confusion and No memory loss Endo Endocrine: No fatigue or weight change Aller/Imm Allergy/Immunologic: No itchy eyes, throat swelling or tongue swelling Leumel/Lymp Hematologic/Lymphatic: No easy bleeding, easy bruising or enlarged lymph nodes Exam Const General: cooperative and comfortable Nutritional Appearance: average body habitus and well nourished HENMT Head: normal to inspection Ears: hearing grossly normal bilaterally Nose: external nose normal Face and sinus: normal facial exam Mouth: oral mucosae normal Throat: posterior oropharynx normal Eyes General: appearance normal, both eyes and all related structures Neck Neck: normal visual inspection Chest Chest palpation & inspection: normal inspection of the chest and normal palpation of entire chest wall Resp Effort & Inspection: normal respiratory effort Auscultation: Bilateral: Clear to Auscultation Cardio Palpation: normal PMI Rate: regular rate Rhythm: regular rhythm GI Inspection: normal to inspection Auscultation: normal bowel sounds Percussion: normal to percussion Palpation: no hepatosplenomegaly Skin General: no rashes or lesions noted Neuro General: patient alert Extrem General: normal to inspection Psych Affect: normal affect Quality Reporting Tobacco Screening ([facility] 138) Smoking Status: Former smoker Assessment and Plan Assessment and Plan (1) GERD (gastroesophageal reflux disease): Status: Acute Plan: Patient is doing very well on medical therapy for gastroesophageal reflux disease and since his nausea and vomiting is improved, he is not having any symptoms of reflux disease despite his increase appetite. 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 He had suggested to him in the hospital that he stop all narcotics and eventually after being off narcotics he stopped having any abdominal pain at all. He is able to eat normally. He has not had any nausea. He has not had any bloating or cramping. He is doing very well and can likely follow-up on a as needed basis. (3) Encounter for screening colonoscopy: Status: Acute Plan: He will undergo screening colonoscopy. He was explained alternatives, risk, benefits including nondistended bleeding, infection, sepsis, perforation, need for emergent turn to . He will have an ASA of 2. (4) Anal fissure: Status: Acute Plan: He has a chronic anal fissure which we will assess and likely use Botox and possibly nitroglycerin or diltiazem to treat it and hopefully heal it. I have examined the patient and the H&P has been reviewed. There are no clinical changes since date of exam.
== END 2023-07-03 08:33 | disposition home or self-care (01) ==
LOC: EN 05:34 → AC 05:35
PROVIDERS: PCP Preventive Medicine Occupational Medicine; Referring Provider Internal Medicine Gastroenterology; Visit Provider Internal Medicine Gastroenterology
PROC: 0DJD8ZZ Inspection of Lower Intestinal Tract, Via Natural or Artificial Opening Endoscopic (ICD-10-PCS; CPT 45378; principal; 2023-07-03 06:25)
DX: K64.1 Second degree hemorrhoids (principal); K60.0 Acute anal fissure; K21.9 Gastro-esophageal reflux disease without esophagitis; Z79.899 Other long term (current) drug therapy; Z87.891 Personal history of nicotine dependence
CPT/HCPCS: 45398; 45382; J7120; J2405

== ENCOUNTER → 2024-06-01 | Outpatient (CLI) | payer OTHER, SELFPAY ==
[2024-06-01 17:55] LABS: Absolute Lymphocyte Count 2.68 X10^3/uL (0.83-4.51); Absolute Neutrophil Count 4.3 X10^3/uL (2.0-7.7); Basophil# 0.05 X10^3/uL; Basophil% 0.6 % (0-1); Eosinophil# 0.19 X10^3/uL; Eosinophils% 2.4 % (0-5); Hematocrit 39.3 % (40-54); Hemoglobin 13.4 g/dL (13.0-16.5); Lymphocyte # 2.68 X10^3/ul (0.83-4.51); Lymphocyte % 34.5 % (19-41); Mean Corp Hgb Conc 34.1 g/dL (32-36); Mean Corpuscular Hgb 31.1 pg (27.0-32.0); Mean Corpuscular Volume 91.2 fL (80-94); Mean Platelet Vol. 8.9 fl (6.2-12.0); Monocyte% 6.4 % (0-10); NRBC Flagged by Analyzer 0 % (0-5); Neutrophil # 4.33 X10^3/uL (2.7-7.7); Neutrophil % 55.8 % (47-70); Platelet Count 328 K/mm3 (150-450); RBC Distribution Width CV 12.4 % (11.6-14.6); RBC Distribution Width SD 41.5 fl (35.1-43.9); Red Blood Count 4.31 M/mm3 (4.6-6.2); White Blood Count 7.8 K/mm3 (4.4-11.0)
[2024-06-01 18:05] LABS: Erythrocyte Sedimentation Rate 2 mm/hr (0-20)
[2024-06-01 18:43] LABS: ALB/GLOB Ratio 1.4 RATIO (0.9-2.4); AST(SGOT) 25 U/L (15-37); Alanine Aminotransfer ALT/SGPT 35 U/L (16-61); Albumin, Serum 4.2 g/dL (3.2-5.0); Alkaline Phosphatase 73 U/L (45-117); Anion Gap 7 (5-15); BUN 15 mg/dL (7-18); BUN/Creat Ratio 11.8 RATIO (10-20); CRP < 2.90 mg/L (0.0-3.0); Calcium,Total 9.1 mg/dL (8.5-10.1); Chloride 106 mmol/L (98-107); Creatinine, Serum 1.27 mg/dL (0.70-1.30); EST Glomerular Filtration Rate 61 mL/min (>60); Est Glom Filt Rate - Afr Amer 74 mL/min (>60); Globulin 3.1 g/dL (2.2-4.2); Glucose 82 mg/dL (74-106); Potassium 3.9 mmol/L (3.5-5.1); Protein, Total 7.3 g/dL (6.4-8.2); Rheumatoid Factor < 10.0 IU/mL (<15); Sodium Level 139 mmol/L (136-145)
[2024-06-01 19:18] LABS: Hepatitis B Surface Antibody Reactive; Hepatitis B Surface Antigen Non-Reactive (Nonreactive); Hepatitis C Antibody Non-Reactive (Nonreactive)
[2024-06-03 11:08] LABS: CCP IgG Antibodies 3 units (0-19)
[2024-06-03 13:08] LABS: Anti-Nuclear Antibody Test Negative (.)
== END | disposition home or self-care (01) ==
LOC: MTLAB 14:30
PROVIDERS: PCP Preventive Medicine Occupational Medicine; Referring Provider Internal Medicine Rheumatology; Visit Provider Internal Medicine Rheumatology
DX: M06.4 Inflammatory polyarthropathy (principal); M47.897 Other spondylosis, lumbosacral region
CPT/HCPCS: 36415; 80053; 85025; 85652; 86038; 86140; 86200; 86431; 86706; 86803; 87340